=== PATIENT | male | born 1980 | race Caucasian/White ===

== ENCOUNTER → 2016-10-11 | Outpatient (CLI) | payer BC ==
[2016-06-11 16:43] VITALS: BP 115/77
[~2016-10-11] MED LIST: ALPR1TAB2 PO; ALPR2TAB2 PO; ALPR2TAB5 PO; ASPI325T11 PO; BUPR150T15 PO; BUPR150T8 PO; CEPH500C PO; CHLO500T14 PO; CLON1TAB PO; CLON2TAB PO; CLON2TAB2 PO; CYCL10TA2 PO; DEXT10CA10 PO; DIAZ5TAB4 PO; DOXY100T PO; HYDR-2672 PO; HYDR-2680 PO; HYDR2TAB PO; HYDR2TAB13 PO; HYDR30CR30 RC; LEVO500T38 PO; METO25TA4 PO; OXYC-250 PO; OXYC-323 PO; PANT40TA5 PO; PRED20TA PO; PREG50CA PO; QUET400T4 PO; TIZA4TAB8 PO
--- NOTE | 2016-10-11 16:41 | RAD ---
CT scan of the abdomen and pelvis without contrast 10/11/2016 Clinical history: Bilateral flank pain for 2 years. Technique: Unenhanced, contiguous, 2 mm axial sections were obtained through the abdomen and pelvis. One or more of the following individualized dose reduction techniques were utilized for this study: 1. Automated exposure control. 2. Adjustment of the mA and/or kV according to patient size. 3. Use of iterative reconstruction technique. Findings: Comparison study is dated 03/21/2016. Images through the lung bases demonstrate minimal dependent subsegmental atelectasis bilaterally. The liver, spleen, pancreas, and adrenal glands are within normal limits. Several nonobstructing calculi are seen scattered throughout both kidneys. These measure 1 to 3 mm in size. No ureteral calculus is seen. There is no evidence of obstruction of either collecting system. The abdominal aorta tapers normally. Surgical clips are seen within the gallbladder fossa consistent with a cholecystectomy. No free fluid or free air is seen within the abdomen. There is no evidence of bowel obstruction. The patient is status post appendectomy. Images through the pelvis demonstrate the urinary bladder distended with urine. Calcifications are seen within the pelvis consistent with phleboliths. No distal ureteral calculus is seen. No free fluid is noted. Scattered diverticula are seen involving the sigmoid colon. No inflammatory changes are seen in the adjacent fat. The patient is status post laminectomy and fusion involving the mid and lower lumbar spine using pedicle screws, stabilizing rods and bone graft material. Cagelike device are seen at L4-5. Relatively mild degenerative changes are seen involving the lower thoracic and throughout the lumbar disc spaces. Impression: Bilateral nonobstructing renal calculi. No acute abnormality is seen.
== END | disposition home or self-care (01) ==
LOC: CT 13:30
PROVIDERS: ATTEND Urology
DX: N20.0 Calculus of kidney (principal)
CPT/HCPCS: 74176

== ENCOUNTER 2016-11-03 14:58 | Emergency (ER) | payer BC ==
[~2016-11-03] VITALS: Ht 177.8 cm; Wt 106.6 kg
[2016-11-03] MEDS ORDERED: IV NORMAL SALINE 1000ML BAG 1,000 ML IV SCH (15:10)
[2016-11-03] MEDS ORDERED: 0.9 % SODIUM CHLORIDE 10 ML DISP.SYRIN. IV PRN (15:15)
[2016-11-03] MEDS ORDERED: FAMOTIDINE 20 MG/2 ML VIAL IVP ONE (15:15)
[2016-11-03] MEDS ORDERED: ONDANSETRON PF 4 MG/2 ML VIAL. IV ONE (15:15)
[2016-11-03] MEDS ORDERED: KETOROLAC TROMETHAMINE 30 MG/ML INJ. IV ONE (15:15)
[2016-11-03 15:21] LABS: BILIRUBIN,URINE NEGATIVE (NEG); GLUCOSE,URINE NEGATIVE (NEG); NITRITE,URINE NEGATIVE (NEG); PH,URINE 6.5; PROTEIN,URINE NEGATIVE (NEG-TRACE); UROBILINOGEN,URINE 0.2 mg/dL (0.2 mg/dL)
[2016-11-03 15:28] LABS: BARBITURATES NEG (NEG); BENZODIAZEPINES NEG (NEG); CANNABINOIDS NEG (NEG); COCAINE NEG (NEG); METHADONE NEG (NEG); OPIATES POS (NEG); PHENCYCLIDINE NEG (NEG)
--- NOTE | 2016-11-03 15:28 | PHYS DOC ---
Past Medical History Past Medical History: Unknown Additional Past Medical Histor: Sleep apnea, Chronic back pain Past Medical History Although patient denies opiate addiction he's been seen here and hospitalized for many opiate overdoses. Past Surgical History: Appendectomy, Cholecystectomy, Other Additional Past Surgical Histo: Back Sx, Bx ankles, Lap band (reversed) Past Surgical History Otoscopic procedure right shoulder, bilateral knees Alcohol Use: None Drug Use: None Adult General Chief Complaint Chief Complaint: abnormal pain, nausea vomiting constipation HPI HPI A shows a pleasant 36-year-old obese male with a history of lap band surgery and reversal present with a two-day history of nausea and vomiting greater than 15 episodes daily for last 2 days described as nonbilious nonbloody. Patient has had constipation with last probably 2 days ago. Patient has been seen in our emergency department and her Hospital for multiple drug overdoses on opiates and benzos. He adamantly denies usage of those medications. He was actually reluctant to give us a urine drug screen. Patient says pain is getting worse and his was worried about a small bowel obstruction. He's had no sick contactsat the market product use no travel outside the country suction of raw foods and does not work with poultry or reptiles patient denies fevers, blood in the stool or change in eating habits. Review of Systems Review of Systems Constitutional: Denies fever or chills [] Eyes: Denies change in visual acuity, redness, or eye pain [] HENT: Denies nasal congestion or sore throat [] Respiratory: Denies cough or shortness of breath [] Cardiovascular: No additional information not addressed in HPI [] GI: Abdominal pain nausea and nonbilious nonbloody vomiting constipation : Denies dysuria or hematuria [] Musculoskeletal: Denies back pain or joint pain [] Integument: Denies rash or skin lesions [] Neurologic: Denies headache, focal weakness or sensory changes [] Endocrine: Denies polyuria or polydipsia [] Family History Family History Noncontributory Current Medications Current Medications Current Medications Medications (Trade) Dose Ordered Sig/Malcolm Start Time Stop Time Status Last Admin Dose Admin Diphenhydramine HCl (Benadryl) 50 mg 1X ONCE 11/03/16 16:00 11/03/16 16:05 DC 11/03/16 15:57 50 MG Famotidine (Pepcid) 20 mg 1X ONCE 11/03/16 15:15 11/03/16 16:05 DC 11/03/16 15:39 20 MG Info (Do NOT chart on this entry -- for MONITORING) 1 each PRN DAILY PRN 11/03/16 15:45 11/05/16 15:44 Iohexol (Omnipaque 300 Mg/ml) 75 ml 1X ONCE 11/03/16 15:45 11/03/16 16:05 DC 11/03/16 16:30 75 ML Ketorolac Tromethamine (Toradol) 30 mg 1X ONCE 11/03/16 15:15 11/03/16 16:05 DC 11/03/16 15:38 30 MG Ondansetron HCl (Zofran) 4 mg 1X ONCE 11/03/16 15:15 11/03/16 16:05 DC 11/03/16 15:38 4 MG Sodium Chloride (Iv Sodium Chloride 0.9% 1000ml Bag) 1,000 ml @ 1,000 mls/hr Q1H 11/03/16 15:10 11/03/16 16:09 DC 11/03/16 15:39 1,000 MLS/HR Sodium Chloride (Normal Saline Flush) 10 ml QSHIFT PRN 11/03/16 15:15 Allergies Allergies Allergies Coded Allergies Type Severity Reaction Last Updated Verified Penicillins Allergy Intermediate 06/11/16 Yes Sulfa (Sulfonamide Antibiotics) Allergy Intermediate 06/11/16 No Physical Exam Physical Exam Constitutional: Well developed, obese nontoxic in appearance but obviously uncomfortable nondiaphoretic HENT: Normocephalic, atraumatic, bilateral external ears normal, oropharynx moist, no oral exudates, nose normal. [] Eyes: PERRLA, EOMI, conjunctiva normal, no discharge. [] Neck: Normal range of motion, no tenderness, supple, no stridor. [] Cardiovascular:Heart rate regular rhythm, no murmur [] Lungs & Thorax: Bilateral breath sounds clear to auscultation wheezes rales or crackles or rhonchi Abdomen: Really nontender hyperactive bowel sounds no organomegaly rebound or guarding. [] Skin: Warm, dry, no erythema, no rash. [] Back: No tenderness, no CVA tenderness. [] Extremities: No tenderness, no cyanosis, no clubbing, ROM intact, no edema. [] Neurologic: Alert and oriented X 3, normal motor function, normal sensory function, no focal deficits noted. [] Psychologic: Patient seems very anxious and somewhat reluctant to talk about prior drug abuse history. [] Current Patient Data Vital Signs Vital Signs Date Time Temp Pulse Resp B/P Pulse Ox O2 Delivery O2 Flow Rate FiO2 11/03/16 16:51 72 18 140/73 96 Room Air 11/03/16 15:09 98 98.0 Lab Values Laboratory Tests Test 11/03/16 15:05 11/03/16 15:40 Urine Collection Type Unknown Urine Color Yellow Urine Clarity Clear Urine pH 6.5 Urine Specific [place] >=1.030 Urine Protein Negativemg/dL (NEG-TRACE) Urine Glucose (UA) Negativemg/dL (NEG) Urine Ketones (Stick) Negativemg/dL (NEG) Urine Blood Negative (NEG) Urine Nitrite Negative (NEG) Urine Bilirubin Negative (NEG) Urine Urobilinogen Dipstick 0.2mg/dL (0.2 mg/dL) Urine Leukocyte Esterase Negative (NEG) Urine RBC Occ/HPF (0-2) Urine WBC 0/HPF (0-4) Urine Bacteria 0/HPF (0-FEW) Urine Mucus Slight/LPF Urine Opiates Screen Pos (NEG) Urine Methadone Screen Neg (NEG) Urine Barbiturates Neg (NEG) Urine Phencyclidine Screen Neg (NEG) Urine Amphetamine/Methamphetamine Neg (NEG) Urine Benzodiazepines Screen Neg (NEG) Urine Cocaine Screen Neg (NEG) Urine Cannabinoids Screen Neg (NEG) Urine Ethyl Alcohol Neg (NEG) White Blood Count 13.0x10^3/uL (4.0-11.0) H Red Blood Count 4.05x10^6/uL (4.30-5.70) L Hemoglobin 11.0g/dL (13.0-17.5) L Hematocrit 34.5% (39.0-53.0) L Mean Corpuscular Volume 85fL (79-100) Mean Corpuscular Hemoglobin 27pg (25-35) Mean Corpuscular Hemoglobin Concent 32g/dL (31-37) Red Cell Distribution Width 15.8% (11.5-14.5) H Platelet Count 337x10^3/uL (140-400) Neutrophils (%) (Auto) 77% (31-73) H Lymphocytes (%) (Auto) 17% (24-48) L Monocytes (%) (Auto) 4% (0-9) Eosinophils (%) (Auto) 2% (0-3) Basophils (%) (Auto) 1% (0-3) Neutrophils # (Auto) 10.0x10^3uL (1.8-7.7) H Lymphocytes # (Auto) 2.1x10^3/uL (1.0-4.8) Monocytes # (Auto) 0.5x10^3/uL (0.0-1.1) Eosinophils # (Auto) 0.3x10^3/uL (0.0-0.7) Basophils # (Auto) 0.1x10^3/uL (0.0-0.2) Sodium Level 135mmol/L (136-145) L Potassium Level 3.8mmol/L (3.5-5.1) Chloride Level 98mmol/L (98-107) Carbon Dioxide Level 27mmol/L (21-32) Anion Gap 10 (6-14) Blood Urea Nitrogen 19mg/dL (8-26) Creatinine 0.9mg/dL (0.7-1.3) Estimated GFR (Cockcroft-Gault) 96.0 BUN/Creatinine Ratio 21 (6-20) H Glucose Level 117mg/dL (70-99) H Calcium Level 8.5mg/dL (8.5-10.1) Total Bilirubin 0.3mg/dL (0.2-1.0) Aspartate Amino Transferase (AST) 27U/L (15-37) Alanine Aminotransferase (ALT) 26U/L (16-63) Alkaline Phosphatase 84U/L (46-116) Total Protein 7.7g/dL (6.4-8.2) Albumin 3.8g/dL (3.4-5.0) Albumin/Globulin Ratio 1.0 (1.0-1.7) Lipase 163U/L (73-393) Laboratory Tests 11/03/16 15:40 Laboratory Tests 11/03/16 15:40 EKG EKG [] Radiology/Procedures Radiology/Procedures [] Course & Med Decision Making Course & Med Decision Making Pertinent Labs and Imaging studies reviewed. (See chart for details) [A shows a pretty extensive history of opiate abuse and overdose on arrival patient was confronted with history documented in his prior record he is adamantly denial of these findings. Patient is complaining of abdominal pain with a prior history of prior lap band surgery and he is concerned for possible bowel injection. Given he's got flatus that he can tell me about as well as nausea vomiting and hyperactive bowel sounds I will complete a CAT scan with IV contrast is sure no obstruction is in place.] Patient's urine drug screen was positive for opiates although patient denied actually taking any opiates. He's been given Toradol fluids and Zofran and Benadryl here in the emergency Department spelled quietly resting with no vomiting or active diarrhea here in the emergency department. Pending CT scan at this time Signed PATIENT: PRO PARISI ACCOUNT: [id number] : 1980 LOCATION: ER AGE: 36 SEX: M EXAM STATUS: REG ER ORD. PHYSICIAN: SIMONE CABEZAS MD REASON: diffuse abdominal pain PROCEDURE: CT ABD PELV W/ IV CONTRST ONLY CT of the abdomen and pelvis with contrast, 11/03/2016: History: Abdominal pain, nausea and vomiting Multidetector CT imaging was performed following an IV bolus injection of iodinated contrast material. No oral contrast material was administered for this study. Comparison is made to a study from 10/11/2016. The gallbladder is surgically absent. No hepatic abnormality is seen. The pancreas shows no abnormality. The spleen is of normal size. Single tiny radiopacities are noted in both kidneys compatible with intrarenal calculi. The renal collecting systems and ureters are not dilated. This study was not optimized for evaluation of ureteral calculi, however, no ureteral calculus is seen. The urinary bladder is unremarkable. The abdominal aorta is unremarkable. There are fixation devices in the lumbar spine with associated artifacts degrading image quality in portions of the retroperitoneum. No abdominal or pelvic adenopathy is seen. The stomach is mildly distended with fluid and retained food debris. There is only slight prominence of a small bowel loop in the left upper quadrant which measures just over 3 cm in greatest dimension. No focal obstructing process is seen. The distal small bowel loops are unremarkable. There is gas and stool scattered throughout the colon in a nonspecific pattern. There appears to be a radiopaque suture along the base of the cecum, presumably from a previous appendectomy. No free fluid or free air is evident in the abdomen or pelvis. IMPRESSION: 1. Mild distention of the stomach with retained food and fluid. 2. Slight prominence of a single fluid-filled small bowel loop in the left upper quadrant of doubtful significance. 3. Tiny bilateral nonobstructing intrarenal calculi. PQRS Compliance Statement: One or more of the following individualized dose reduction techniques were utilized for this examination: 1. Automated exposure control 2. Adjustment of the mA and/or kV according to patient size 3. Use of iterative reconstruction technique DICTATED and SIGNED BY: JERRY SILVA MD DATE: 11/03/16 1640 CC: SIMONE CABEZAS MD; NO PCP ~ Ancillary results reviewed and discussed with patient patient's abdomen is soft NABS patient has had again no episodes of nausea and vomiting despite claims someone to 15 episodes of vomiting per day or last 2 days. Patient's CMP BUN/ creatinine do not reflect significant dehydration or loss of potassium from vomiting. Patient's final impression and diagnosis will be abdominal pain, nausea and vomiting reported and opiate addiction will be referred to his primary care physician to help with his opiate addiction problems provided Zofran and Lomotil and Bentyl precautions given. Dragon Disclaimer Dragon Disclaimer This electronic medical record was generated, in whole or in part, using a voice recognition dictation system. Departure Departure Impression: Primary Impression: Vomiting Additional Impressions: Abdominal pain Opiate use Disposition: 01 HOME, SELF-CARE Condition: IMPROVED Referrals: WANG GALINDO PA-C (PCP) Patient Instructions: Abdominal Pain (Nonspecific), Chronic Pain, Chronic Pain Management, Nausea and Vomiting Additional Instructions: It is apparent that you have an issue with opiate use and possible abuse I would suggest that he follow up with her primary care doctor referral to a psychiatrist and a Suboxone addiction clinic to help with your opiate challenges. At this point her abdomen is soft there is no evidence of appendicitis no evidence of small bowel obstruction your kidney function is normal the CMP is normal. Please follow up with her primary care doctor for any questions or concerns he may return here for any increasing or change symptoms. Scripts Diphenoxylate Hcl/Atropine (Lomotil Tablet)1 Each Tablet1 Tab PO QID #20 TAB Prov:SIMONE CABEZAS MD 11/03/16 Dicyclomine Hcl (Bentyl)10 Mg Capsule1 Cap PO TID #14 CAP Ref 1 Prov:SIMONE CABEZAS MD 11/03/16 Ondansetron (Zofran Odt)4 Mg Tab.rapdis1 Tab SL Q8HRS #15 TAB Prov:SIMONE CABEZAS MD 11/03/16 Problem Qualifiers SIMONE CABEZAS MD November 03, 2016 15:28
[2016-11-03 15:29] LABS: BACTERIA,URINE 0 /HPF (0-FEW); RBC,URINE OCC /HPF (0-2); WBC,URINE 0 /HPF (0-4)
[2016-11-03] MEDS ORDERED: IOHEXOL 300 MG/ML 75 ML VIAL IV ONE (15:45)
[2016-11-03] MEDS ORDERED: CONTRAST GIVEN MC PRN (15:45)
[2016-11-03 15:51] LABS: BASO # 0.1 x10^3/uL (0.0-0.2); BASO % 1 % (0-3); EOS % 2 % (0-3); HEMATOCRIT 34.5 % (39.0-53.0); LYMPH # 2.1 x10^3/uL (1.0-4.8); LYMPH % 17 % (24-48); MEAN CORPUSCULAR HEMOGLOBIN 27 pg (25-35); MEAN CORPUSCULAR HGB CONC 32 g/dL (31-37); MEAN CORPUSCULAR VOLUME 85 fL (79-100); MONO % 4 % (0-9); NEUT % 77 % (31-73); PLATELET COUNT 337 x10^3/uL (140-400); RED BLOOD COUNT 4.05 x10^6/uL (4.30-5.70); RED CELL DISTRIBUTION WIDTH 15.8 % (11.5-14.5)
[2016-11-03] MEDS ORDERED: diphenhydrAMINE 50 MG/ML VIAL IVP ONE (16:00)
[2016-11-03 16:07] LABS: CALCIUM 8.5 mg/dL (8.5-10.1); CREATININE 0.9 mg/dL (0.7-1.3); POTASSIUM 3.8 mmol/L (3.5-5.1)
[2016-11-03 16:12] LABS: ALBUMIN 3.8 g/dL (3.4-5.0); TOTAL BILIRUBIN 0.3 mg/dL (0.2-1.0); TOTAL PROTEIN 7.7 g/dL (6.4-8.2)
--- NOTE | 2016-11-03 16:50 | ACF ---
Admission Forms Criteria ABDOMINAL PAIN Clinical Indications for Admission to Inpatient Care (Place 'X' for any and all applicable criteria): Admission is indicated for ANY ONE of the following(1)(2)(3)(4)(5): [X]I. Inpatient admission required rather than observation care (Also use Abdominal Pain: Observation Care, as appropriate) because of ANY ONE of the following: [ ]a) Severe pain requiring acute inpatient management [X]b) Identification of etiology/finding that requires inpatient care (eg, aortic dissection, free air) [ ]c) Absent bowel sounds with complete ileus(6) [ ]d) Suspected toxic megacolon [ ]e) Severe electrolyte abnormalities requiring inpatient care [ ]f) High fever or infection requiring inpatient admission as indicated by ANY ONE of following(7)(8): [ ] i) Appropriate outpatient or observational care antimicrobial treatment unavailable, not effective, or not feasible [ ] ii) Documented bacteremia [ ] iii) Temperature > 104.9 degrees F (oral) [ ] iv) T >103.1 F (oral) or < 96.8 F(rectal) that does not respond to all emergency treatment measures [ ]g) Signs of intestinal obstruction [B] [ ]h) Hemodynamic instability [ ]i) IV fluid to replace significant ongoing losses (greater than 3 L/m2 per day) (12)(13) [ ]j) Percutaneous or open drainage (eg, abscess, biliary tract ) procedures [ ]k) Parenteral nutrition regimen that must be implemented on inpatient basis [ ]l) Other condition,treatment or monitoring requiring inpatient admission. [ ]II. Peritoneal signs present [ ]III. Surgery needed that cannot be performed on an ambulatory basis. [ ]IV. Evaluation requires patient to not eat or drink for extended period ( eg, more than 24 hours). [ ]V. Contraindications and/or Inappropriate clinical situations for Observational Care in patients with abdominal pain, when ANY ONE of the following is required: [ ]a) Thorough evaluation is required to prevent catastrophic events due to delays in diagnosing (e.g.Mesenteric ischemia) 1,3 [ ]b) Patient with severe pathology or with chronic symptoms unlikely to improve in the ED stay (3) [ ]. General contraindications and/or Inappropriate clinical situations for Observational Care in patients with abdominal pain, when ANY ONE of the following is required: [ ]a) Prediction of prolongation of LOS based on ANY ONE of the following may be considered as a contraindication for observational care 2, 3, 4, 5, 6, 7, 8, 9, 10, 11 [ ]i) Age > 65 yrs. [ ]ii) Patient arriving by ambulance [ ]iii) Patient with high acuity [ ]iv) Patient requiring vital sign monitoring [ ]v) Patient on IV medication [ ]b) Systolic blood pressures 180mmHg 3,12 [ ]c) Patient with altered mental status including delirium and other alteration of consciousness, (3) [ ]d) Patient whose discharge disposition will be to a snf home or rehabilitation home should not be managed in Emergency Department Observation Unit. CMS rule requires 3 days hospital stay before such placement.3,13 [ ]e) Patient with failure to thrive due to broad array of etiologies 3,16,17 [ ]f) Inability to ambulate 3,14 Extended stay beyond goal length of stay may be needed for(2)(3): [ ]a) Persistent abdominal pain with suspected intra-abdominal process [ ]b) Diagnosed condition requiring continued stay (e.g., pancreatitis, complicated diverticulitis) [ ]c) Surgery (e.g., colectomy) The original [facility] content created by [employer] has been revised. The portions of the content which have been revised are identified through the use of italic text or in bold, and [facility] has neither reviewed nor approved the modified material.All other unmodified content is copyright [facility]. Please see references footnoted in the original [facility] edition 2016 J LUIS SOLANO November 03, 2016 16:50
[2016-11-03 16:51] VITALS: BP 140/73
--- NOTE | 2016-11-03 16:53 | RAD ---
CT of the abdomen and pelvis with contrast, 11/03/2016: History: Abdominal pain, nausea and vomiting Multidetector CT imaging was performed following an IV bolus injection of iodinated contrast material. No oral contrast material was administered for this study. Comparison is made to a study from 10/11/2016. The gallbladder is surgically absent. No hepatic abnormality is seen. The pancreas shows no abnormality. The spleen is of normal size. Single tiny radiopacities are noted in both kidneys compatible with intrarenal calculi. The renal collecting systems and ureters are not dilated. This study was not optimized for evaluation of ureteral calculi, however, no ureteral calculus is seen. The urinary bladder is unremarkable. The abdominal aorta is unremarkable. There are fixation devices in the lumbar spine with associated artifacts degrading image quality in portions of the retroperitoneum. No abdominal or pelvic adenopathy is seen. The stomach is mildly distended with fluid and retained food debris. There is only slight prominence of a small bowel loop in the left upper quadrant which measures just over 3 cm in greatest dimension. No focal obstructing process is seen. The distal small bowel loops are unremarkable. There is gas and stool scattered throughout the colon in a nonspecific pattern. There appears to be a radiopaque suture along the base of the cecum, presumably from a previous appendectomy. No free fluid or free air is evident in the abdomen or pelvis. IMPRESSION: 1. Mild distention of the stomach with retained food and fluid. 2. Slight prominence of a single fluid-filled small bowel loop in the left upper quadrant of doubtful significance. 3. Tiny bilateral nonobstructing intrarenal calculi. PQRS Compliance Statement: One or more of the following individualized dose reduction techniques were utilized for this examination: 1. Automated exposure control 2. Adjustment of the mA and/or kV according to patient size 3. Use of iterative reconstruction technique
[2016-11-03] MEDS ORDERED: DICY10CA53 PO (17:04)
[2016-11-03] MEDS ORDERED: ONDA4TAB10 SL (17:04)
[2016-11-03] MEDS ORDERED: DIPH1TAB PO (17:04)
== END 2016-11-03 17:15 | disposition home or self-care (01) ==
LOC: ER 14:58
DX: R11.2 Nausea with vomiting, unspecified (principal); R10.9 Unspecified abdominal pain; F11.10 Opioid abuse, uncomplicated; G89.29 Other chronic pain; G47.30 Sleep apnea, unspecified; Z90.49 Acquired absence of other specified parts of digestive tract; Z88.0 Allergy status to penicillin; Z88.2 Allergy status to sulfonamides
CPT/HCPCS: 36415; 74177; 80053; 80305; 80320; 81001; 83690; 85027; 96361; 96374; 96375; 99285; J1200; J1885; J2405; J7030; Q9967; S0028; G0481

== ENCOUNTER → 2018-06-13 | Outpatient (CLI) | payer OTHER ==
[2018-06-08 11:00] VITALS: BP 124/71
[~2018-06-13] MED LIST changes: +ASPI-630 PO; +CIPR250T30 PO; -CLON2TAB2 PO; +CLON2TAB9 PO; +DICY10CA53 PO; +DIPH1TAB PO; -HYDR-2672 PO; +HYDR-2769 PO; -HYDR2TAB13 PO; +HYDR2TAB31 PO; +HYDR4TAB45 PO; -LEVO500T38 PO; +LEVO500T59 PO; +METO50TA6 PO; +ONDA4TAB10 SL; -OXYC-250 PO; -OXYC-323 PO; +OXYC1TAB15 PO; +OXYC1TAB22 PO
== END | disposition home or self-care (01) ==
LOC: PMGWOUND 12:14
PROVIDERS: ATTEND Emergency Medicine Undersea and Hyperbaric Medicine
DX: L02.214 Cutaneous abscess of groin (principal); F41.9 Anxiety disorder, unspecified; G89.4 Chronic pain syndrome; F32.9 Major depressive disorder, single episode, unspecified; I25.2 Old myocardial infarction; G47.33 Obstructive sleep apnea (adult) (pediatric); Z90.49 Acquired absence of other specified parts of digestive tract; E66.01 Morbid (severe) obesity due to excess calories; Z68.41 Body mass index [BMI] 40.0-44.9, adult; Z86.73 Personal history of transient ischemic attack (TIA), and cerebral infarction without residual deficits
CPT/HCPCS: 99203

== ENCOUNTER → 2018-06-20 | Outpatient (CLI) | payer OTHER ==
[2018-06-08 11:00] VITALS: BP 124/71
== END | disposition home or self-care (01) ==
LOC: PMGWOUND 12:55
PROVIDERS: ATTEND Emergency Medicine Undersea and Hyperbaric Medicine
DX: L02.214 Cutaneous abscess of groin (principal); I10 Essential (primary) hypertension; F41.9 Anxiety disorder, unspecified; G89.4 Chronic pain syndrome; I25.2 Old myocardial infarction; G47.33 Obstructive sleep apnea (adult) (pediatric); F32.9 Major depressive disorder, single episode, unspecified; E66.01 Morbid (severe) obesity due to excess calories; Z68.41 Body mass index [BMI] 40.0-44.9, adult; Z90.49 Acquired absence of other specified parts of digestive tract; Z86.73 Personal history of transient ischemic attack (TIA), and cerebral infarction without residual deficits
CPT/HCPCS: 99214; G0463

== ENCOUNTER → 2018-06-29 | Outpatient (CLI) | payer OTHER ==
[2018-06-26 14:00] VITALS: BP 136/81
== END | disposition home or self-care (01) ==
LOC: PMGWOUND 10:32
PROVIDERS: ATTEND Emergency Medicine Undersea and Hyperbaric Medicine
DX: L02.214 Cutaneous abscess of groin (principal); I10 Essential (primary) hypertension; F41.9 Anxiety disorder, unspecified; I25.2 Old myocardial infarction; G89.29 Other chronic pain; G47.33 Obstructive sleep apnea (adult) (pediatric); F11.20 Opioid dependence, uncomplicated; F32.9 Major depressive disorder, single episode, unspecified; E66.01 Morbid (severe) obesity due to excess calories; Z68.41 Body mass index [BMI] 40.0-44.9, adult; Z90.49 Acquired absence of other specified parts of digestive tract; Z86.73 Personal history of transient ischemic attack (TIA), and cerebral infarction without residual deficits
CPT/HCPCS: 99214; G0463

== ENCOUNTER → 2018-07-06 | Outpatient (CLI) | payer OTHER ==
[2018-06-26 14:00] VITALS: BP 136/81
== END | disposition home or self-care (01) ==
LOC: PMGWOUND 14:29
PROVIDERS: ATTEND Emergency Medicine Undersea and Hyperbaric Medicine
DX: T81.31XD Disruption of external operation (surgical) wound, not elsewhere classified, subsequent encounter (principal); L02.214 Cutaneous abscess of groin; I25.2 Old myocardial infarction; F41.9 Anxiety disorder, unspecified; G47.30 Sleep apnea, unspecified; F32.9 Major depressive disorder, single episode, unspecified; G47.33 Obstructive sleep apnea (adult) (pediatric); F11.20 Opioid dependence, uncomplicated; G89.29 Other chronic pain; E66.01 Morbid (severe) obesity due to excess calories; Z68.41 Body mass index [BMI] 40.0-44.9, adult; Z86.73 Personal history of transient ischemic attack (TIA), and cerebral infarction without residual deficits; Z90.49 Acquired absence of other specified parts of digestive tract; Y83.8 Other surgical procedures as the cause of abnormal reaction of the patient, or of later complication, without mention of misadventure at the time of the procedure
CPT/HCPCS: 99215

== ENCOUNTER → 2018-07-13 | Outpatient (CLI) | payer OTHER ==
[2018-06-26 14:00] VITALS: BP 136/81
== END | disposition home or self-care (01) ==
LOC: PMGWOUND 13:00
PROVIDERS: ATTEND Emergency Medicine Undersea and Hyperbaric Medicine
DX: T81.31XD Disruption of external operation (surgical) wound, not elsewhere classified, subsequent encounter (principal); L02.214 Cutaneous abscess of groin; F41.9 Anxiety disorder, unspecified; G89.4 Chronic pain syndrome; I25.2 Old myocardial infarction; G47.30 Sleep apnea, unspecified; F11.20 Opioid dependence, uncomplicated; F32.9 Major depressive disorder, single episode, unspecified; E66.01 Morbid (severe) obesity due to excess calories; Z68.41 Body mass index [BMI] 40.0-44.9, adult; Z90.49 Acquired absence of other specified parts of digestive tract; Z86.73 Personal history of transient ischemic attack (TIA), and cerebral infarction without residual deficits; Y83.8 Other surgical procedures as the cause of abnormal reaction of the patient, or of later complication, without mention of misadventure at the time of the procedure
CPT/HCPCS: 99213

== ENCOUNTER → 2018-07-20 | Outpatient (CLI) | payer OTHER ==
[2018-06-26 14:00] VITALS: BP 136/81
[~2018-07-20] MED LIST changes: +LEVO750T31 PO
== END | disposition home or self-care (01) ==
LOC: PMGWOUND 12:41
PROVIDERS: ATTEND Emergency Medicine Undersea and Hyperbaric Medicine
DX: T81.31XD Disruption of external operation (surgical) wound, not elsewhere classified, subsequent encounter (principal); L02.214 Cutaneous abscess of groin; I25.2 Old myocardial infarction; G47.30 Sleep apnea, unspecified; F41.9 Anxiety disorder, unspecified; G89.4 Chronic pain syndrome; G47.33 Obstructive sleep apnea (adult) (pediatric); F32.9 Major depressive disorder, single episode, unspecified; F11.20 Opioid dependence, uncomplicated; E66.01 Morbid (severe) obesity due to excess calories; Z68.41 Body mass index [BMI] 40.0-44.9, adult; Z90.49 Acquired absence of other specified parts of digestive tract; Z86.73 Personal history of transient ischemic attack (TIA), and cerebral infarction without residual deficits; Y83.8 Other surgical procedures as the cause of abnormal reaction of the patient, or of later complication, without mention of misadventure at the time of the procedure
CPT/HCPCS: 99213

== ENCOUNTER 2018-07-21 13:02 | Inpatient (IN) | payer OTHER ==
[~2018-07-21] VITALS: Ht 177.8 cm; Wt 123.2 kg
[~2018-07-21 13:02] MED LIST changes: -LEVO750T31 PO; -PANT40TA5 PO; +PANT40TA77 PO
[2018-07-21] MEDS ORDERED: IPRATRPIUM/ALBUTEROL 0.5/2.5MG 3 ML NEBU. NEB ONE (13:30)
[2018-07-21 13:34] LABS: BASE EXCESS ABG 1 mmol/L (-3-3); HCO3 ABG 29 mmol/L (21-28); PO2 ABG 66 mmHg (85-108); SAT O2 ABG 91 % (92-99)
[2018-07-21 13:44] LABS: FIO2 ABG 60; PCO2 ABG 65 mmHg (35-46)
[2018-07-21 14:07] LABS: BASO # 0.1 x10^3/uL (0.0-0.2); BASO % 1 % (0-3); EOS % 0 % (0-3); HEMATOCRIT 41.8 % (39.0-53.0); HEMOGLOBIN 13.4 g/dL (13.0-17.5); LYMPH # 1.1 x10^3/uL (1.0-4.8); LYMPH % 9 % (24-48); MEAN CORPUSCULAR HEMOGLOBIN 27 pg (25-35); MEAN CORPUSCULAR HGB CONC 32 g/dL (31-37); MEAN CORPUSCULAR VOLUME 85 fL (79-100); MONO # 0.5 x10^3/uL (0.0-1.1); MONO % 4 % (0-9); NEUT # 10.7 x10^3uL (1.8-7.7); NEUT % 86 % (31-73); PLATELET COUNT 302 x10^3/uL (140-400); RED CELL DISTRIBUTION WIDTH 17.6 % (11.5-14.5); WHITE BLOOD COUNT 12.3 x10^3/uL (4.0-11.0)
[2018-07-21] MEDS ORDERED: IOHEXOL 350 MG/ML 100 ML VIAL. IV ONE (14:15)
[2018-07-21] MEDS ORDERED: ALBUTEROL SULFATE 2.5 MG/3 ML NEBU. CONT NEB ONE (14:15)
[2018-07-21 14:17] LABS: CALCIUM 8.5 mg/dL (8.5-10.1); CREATININE 0.9 mg/dL (0.7-1.3); POTASSIUM 4.4 mmol/L (3.5-5.1)
--- NOTE | 2018-07-21 14:29 | EKG ---
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
[2018-07-21] MEDS ORDERED: CONTRAST GIVEN. MC PRN (14:30)
[2018-07-21 14:33] LABS: % BASOS 1 % (0-3); % EOS 1 % (0-5); % LYMPHS 10 % (24-48); % MONOS 1 % (0-10); % SEGS 87 % (35-66); ANISOCYTOSIS SLIGHT; PLT ESTIMATE ADEQUATE (ADEQUATE)
[2018-07-21 14:34] LABS: STOMATOCYTES FEW
--- NOTE | 2018-07-21 14:52 | RAD ---
EXAM: CHEST 1 VIEW History: Shortness of breath COMPARISON: 06/24/2018 TECHNIQUE: Single portable radiograph of the chest FINDINGS: Mild cardiomegaly. Mild prominent appearing bilateral interstitial lung markings in the perihilar region. Mild bibasilar lung airspace opacities likely atelectasis or infiltrates. IMPRESSION: Mild prominent appearing bilateral digital lung markings likely mild congestive changes. Electronically signed by: Iggy Navarrete MD (07/21/2018 2:48 PM) [id number]
--- NOTE | 2018-07-21 16:17 | RAD ---
Examination: CT angiogram of the chest. HISTORY: History of shortness of breath COMPARISON: None available TECHNIQUE: Axial CT angiographic images of chest were performed with IV contrast. Coronal and sagittal reformats are performed Exposure: One or more of the following individualized dose reduction techniques were utilized for this examination: 1. Automated exposure control 2. Adjustment of the mA and/or kV according to patient size 3. Use of iterative reconstruction technique FINDINGS: The visualized thyroid gland grossly appears unremarkable. The central airways are patent. Mild cardiomegaly. The visualized aorta grossly appears unremarkable. Few prominent mediastinal lymph nodes identified with the largest measuring 2.2 cm in the subcarinal region. There is no evidence of filling defect identified in the main pulmonary arterial trunk and right and left main pulmonary arteries. The evaluation of the distal lobar, segmental branches of the pulmonary arteries is limited as it is not enough contrast within these pulmonary arterial branches. There is questionable filling defect identified in the distal segmental branch of the right lower lobe pulmonary artery, best visualized on series 3 image #80 could be artifactual or due to pulmonary embolus. Diffuse airspace opacities identified in the left upper lobe, left lower lobe, right lower lobe of the lung with scattered airspace opacities identified in the right upper lobe of the lung likely multifocal pneumonia or infiltrates or edema.. There is mild decreased attenuation noted in the liver likely hepatic steatosis. The visualized adrenals grossly appears unremarkable. Mild degenerative changes thoracic spine. IMPRESSION: 1. No evidence of central pulmonary embolism however examination is limited as it is not enough contrast within the distal pulmonary arterial branches. There is questionable filling defect identified in the distal segmental branch of the right lower lobe pulmonary artery, best visualized on series 3 image #80 could be artifactual or due to pulmonary embolus. Recommend follow-up ultrasound bilateral lower extremity venous duplex and VQ scan for further evaluation. 2. Diffuse airspace opacities identified in the left upper lobe, left lower lobe, right lower lobe of the lung with scattered airspace opacities identified in the right upper lobe of the lung likely multifocal pneumonia or infiltrates or edema. Follow-up to resolution. 3. Few prominent mediastinal lymph nodes probably reactive. Electronically signed by: Iggy Navarrete MD (07/21/2018 4:13 PM) [id number]
[2018-07-21] MEDS ORDERED: HYDROmorphone 4 MG TABLET PO ONE (16:30)
--- NOTE | 2018-07-21 16:30 | PHYS DOC ---
Past Medical History Past Medical History: Anxiety, Kidney Stone, Pneumonia, Other Additional Past Medical Histor: chronic back pain, degenerative disc disease, Past Surgical History: Appendectomy, Cholecystectomy, Tonsillectomy, Other Additional Past Surgical Histo: back surgery x 4 Alcohol Use: None Drug Use: None Adult General Chief Complaint Chief Complaint: SHORTNESS OF BREATH HPI HPI Patient is a 38 year old male who presents with dyspnea. Patient has been ill over the last couple of days. He has had a cough that has been productive of frothy, bloody sputum. He has had some chills and fever was documented yesterday. Today, he became too short of breath so he came to the emergency department. Patient does have a known history of hypoxia but this is normally only at nighttime and secondary to severe sleep apnea. He does use an oxygen concentrator at home, but again only at nighttime. He does not complain of chest pain. No recent travel. No ill family members. On arrival to the emergency department, the patient has a room air saturation of 55%. He has some central cyanosis but does not have severe respiratory distress. He placed on 10 L of oxygen per high flow nasal cannula but his oxygen saturation only improves to 88-89% on this regimen. He was subsequently placed on a nonrebreather which did improve his SaO2 >94%. Review of Systems Review of Systems Constitutional: + fever/chills Eyes: Denies change in visual acuity HENT: Denies nasal congestion or sore throat Respiratory: as documented above Cardiovascular: No additional information GI: Denies abdominal pain, nausea, vomiting : Denies dysuria or hematuria Musculoskeletal: chronic back pain Integument: Denies rash or skin lesions Neurologic: Denies headache, or focal neuro complaints Endocrine: Denies polyuria All other systems were reviewed and found to be within normal limits, except as documented in this note. Current Medications Current Medications Current Medications Medications (Trade) Dose Ordered Sig/Malcolm Start Time Stop Time Status Last Admin Dose Admin Acetaminophen (Tylenol) 650 mg PRN Q4HRS PRN 07/21/18 16:45 07/22/18 16:44 Albuterol Sulfate (Ventolin Neb Soln) 10 mg 1X ONCE 07/21/18 14:15 07/21/18 14:16 DC 07/21/18 14:38 10 MG Albuterol/ Ipratropium (Duoneb) 3 ml RTQID 07/21/18 20:00 07/22/18 19:59 Heparin Sodium (Porcine) (Heparin Sodium) 1,850 unit PRN Q6HRS PRN 07/21/18 16:45 Heparin Sodium/ Dextrose 500 ml @ 40 mls/hr CONT PRN 07/21/18 16:45 Hydromorphone HCl (Dilaudid) 4 mg 1X ONCE 07/21/18 16:30 07/21/18 16:31 DC 07/21/18 16:29 4 MG Info (Anti-Coagulation Monitoring By Pharmacy) 1 each PRN DAILY PRN 07/21/18 16:45 Info (CONTRAST GIVEN -- Rx MONITORING) 1 each PRN DAILY PRN 07/21/18 14:30 07/23/18 14:29 Iohexol (Omnipaque 350 Mg/ml) 100 ml 1X ONCE 07/21/18 14:15 07/21/18 14:16 DC 07/21/18 14:15 100 ML Levofloxacin/ Dextrose 150 ml @ 100 mls/hr 1X ONCE 07/21/18 15:30 07/21/18 16:59 07/21/18 16:08 100 MLS/HR Morphine Sulfate (Morphine Sulfate) 4 mg PRN Q2HR PRN 07/21/18 16:45 07/22/18 16:44 Ondansetron HCl (Zofran) 4 mg PRN Q8HRS PRN 07/21/18 16:45 07/22/18 16:44 Allergies Allergies Allergies Coded Allergies Type Severity Reaction Last Updated Verified Penicillins Allergy Intermediate Hives 06/26/18 Yes ketorolac Allergy Intermediate 06/26/18 Yes tramadol Allergy Intermediate 06/26/18 Yes Physical Exam Physical Exam Constitutional: Well developed, well nourished, no acute distress, ill- appearing with some portillo-oral cyanosis HENT: Normocephalic, atraumatic, bilateral external ears normal, oropharynx moist Eyes: PERRLA, EOMI, conjunctiva normal Neck: Normal range of motion, no tenderness Cardiovascular:Heart rate regular rhythm, no murmur Lungs & Thorax: congested and course lung sounds bilaterally Abdomen: Bowel sounds normal, soft Skin: Warm, dry, no erythema, no rash Extremities: No edema Neurologic: Alert and oriented X 3, normal motor function Psychologic: Affect normal Current Patient Data Vital Signs Vital Signs Date Time Temp Pulse Resp B/P (MAP) Pulse Ox O2 Delivery O2 Flow Rate FiO2 07/21/18 14:43 95 Nasal Cannula 10.0 07/21/18 13:10 97.5 106 20 110/69 (83) 97.5 Lab Values Laboratory Tests Test 07/21/18 13:30 07/21/18 13:54 O2 Saturation 91 % (92-99) L Arterial Blood pH 7.27 (7.35-7.45) L Arterial Blood pCO2 at Patient Temp 65 mmHg (35-46) *H Arterial Blood pO2 at Patient Temp 66 mmHg (85-108) L Arterial Blood HCO3 29 mmol/L (21-28) H Arterial Blood Base Excess 1 mmol/L (-3-3) FiO2 60 White Blood Count 12.3 x10^3/uL (4.0-11.0) H Red Blood Count 4.90 x10^6/uL (4.30-5.70) Hemoglobin 13.4 g/dL (13.0-17.5) Hematocrit 41.8 % (39.0-53.0) Mean Corpuscular Volume 85 fL (79-100) Mean Corpuscular Hemoglobin 27 pg (25-35) Mean Corpuscular Hemoglobin Concent 32 g/dL (31-37) Red Cell Distribution Width 17.6 % (11.5-14.5) H Platelet Count 302 x10^3/uL (140-400) Neutrophils (%) (Auto) 86 % (31-73) H Lymphocytes (%) (Auto) 9 % (24-48) L Monocytes (%) (Auto) 4 % (0-9) Eosinophils (%) (Auto) 0 % (0-3) Basophils (%) (Auto) 1 % (0-3) Neutrophils # (Auto) 10.7 x10^3uL (1.8-7.7) H Lymphocytes # (Auto) 1.1 x10^3/uL (1.0-4.8) Monocytes # (Auto) 0.5 x10^3/uL (0.0-1.1) Eosinophils # (Auto) 0.0 x10^3/uL (0.0-0.7) Basophils # (Auto) 0.1 x10^3/uL (0.0-0.2) Segmented Neutrophils % 87 % (35-66) H Lymphocytes % 10 % (24-48) L Monocytes % 1 % (0-10) Eosinophils % 1 % (0-5) Basophils % 1 % (0-3) Platelet Estimate Adequate (ADEQUATE) Large Platelets Occ Anisocytosis Slight Stomatocytes Few Sodium Level 140 mmol/L (136-145) Potassium Level 4.4 mmol/L (3.5-5.1) Chloride Level 102 mmol/L (98-107) Carbon Dioxide Level 31 mmol/L (21-32) Anion Gap 7 (6-14) Blood Urea Nitrogen 18 mg/dL (8-26) Creatinine 0.9 mg/dL (0.7-1.3) Estimated GFR (Cockcroft-Gault) 95.0 Glucose Level 110 mg/dL (70-99) H Lactic Acid Level 1.2 mmol/L (0.4-2.0) Calcium Level 8.5 mg/dL (8.5-10.1) Troponin I Quantitative < 0.017 ng/mL (0.000-0.055) ME-Ssx-C-Type Natriuretic Peptide 3706 pg/mL (0-124) H Procalcitonin 0.14 ng/mL (0.00-0.10) H Laboratory Tests 07/21/18 13:54 Laboratory Tests 07/21/18 13:54 EKG EKG No STEMI Noted to have S1Q3T3 pattern Radiology/Procedures Radiology/Procedures CXR: no acute findings CTA chest: FINDINGS: The visualized thyroid gland grossly appears unremarkable. The central airways are patent. Mild cardiomegaly. The visualized aorta grossly appears unremarkable. Few prominent mediastinal lymph nodes identified with the largest measuring 2.2 cm in the subcarinal region. There is no evidence of filling defect identified in the main pulmonary arterial trunk and right and left main pulmonary arteries. The evaluation of the distal lobar, segmental branches of the pulmonary arteries is limited as it is not enough contrast within these pulmonary arterial branches. There is questionable filling defect identified in the distal segmental branch of the right lower lobe pulmonary artery, best visualized on series 3 image #80 could be artifactual or due to pulmonary embolus. Diffuse airspace opacities identified in the left upper lobe, left lower lobe, right lower lobe of the lung with scattered airspace opacities identified in the right upper lobe of the lung likely multifocal pneumonia or infiltrates or edema.. There is mild decreased attenuation noted in the liver likely hepatic steatosis. The visualized adrenals grossly appears unremarkable. Mild degenerative changes thoracic spine. IMPRESSION: 1. No evidence of central pulmonary embolism however examination is limited as it is not enough contrast within the distal pulmonary arterial branches. There is questionable filling defect identified in the distal segmental branch of the right lower lobe pulmonary artery, best visualized on series 3 image #80 could be artifactual or due to pulmonary embolus. Recommend follow-up ultrasound bilateral lower extremity venous duplex and VQ scan for further evaluation. 2. Diffuse airspace opacities identified in the left upper lobe, left lower lobe, right lower lobe of the lung with scattered airspace opacities identified in the right upper lobe of the lung likely multifocal pneumonia or infiltrates or edema. Follow-up to resolution. 3. Few prominent mediastinal lymph nodes probably reactive. Course & Med Decision Making Course & Med Decision Making Pertinent Labs and Imaging studies reviewed. (See chart for details) Patient was evaluated immediately on arrival to his room. He did not have acute respiratory distress but did have found hypoxia. He received a DuoNeb albuterol and Atrovent treatment which improved his oxygen requirements. During the ED course, he would receive an additional DuoNeb treatment. By the end of his ED course, the patient only required 4 L per nasal cannula to maintain a sat above 90% which was a great improvement. His initial blood gas was revealing for respiratory acidosis with a CO2 of 65. The patient's lab panel was revealing for elevated BNP of 3000. His troponin was not elevated. His pro calcitonin was elevated raising suspicion for infectious process. His initial chest x-ray did not reveal focal pneumonia. CT angiography was completed given the patient's profound hypoxia and dyspnea. This was revealing for multifocal pneumonia as well as some suspicion for smaller pulmonary embolus. In the ER, the patient had blood cultures collected. He was started on levofloxacin. His lactate was not elevated. He was started on heparin. I spoke to Dr. Carrion who will primarily admit the patient. Pulmonary consult is placed. At the time of admission, the patient was clinically much improved. The patient has been intubated in the past due to chronic hypoxia which occurs primarily at night time. Given this, the patient is admitted to the intensive care unit for close observation His EKG did not reveal STEMI but he did have an S1Q3T3 pattern. Dragon Disclaimer Dragon Disclaimer This electronic medical record was generated, in whole or in part, using a voice recognition dictation system. Departure Departure Impression: Primary Impression: Respiratory acidosis Additional Impression: Hypoxia Condition: STABLE Problem Qualifiers GURJIT SANDY DO Jul 21, 2018 16:29
[2018-07-21] MEDS ORDERED: ANTI-COAG MONITOR BY PHARMACY. MC PRN (16:45)
[2018-07-21] MEDS ORDERED: HEPARIN 25,000UTS/500ML PREMIX 500 ML IV PRN (16:45)
[2018-07-21] MEDS ORDERED: HEPARIN for IV BOLUS 10,000 UNIT/10 ML VIAL. IV PRN ×2 (16:45)
[2018-07-21] MEDS ORDERED: ACETAMINOPHEN 325 MG TABLET. PO PRN ×2 (16:45→17:45)
[2018-07-21] MEDS ORDERED: ONDANSETRON PF 4 MG/2 ML VIAL. IV PRN ×2 (16:45→17:45)
[2018-07-21 17:03] LABS: INFLUENZA A PATIENT NEGATIVE (NEGATIVE); INFLUENZA B PATIENT NEGATIVE (NEGATIVE)
--- NOTE | 2018-07-21 17:40 | PDOC1 ---
History and Physical Date of Admission Date of Admission 07/21/18 Identification/Chief Complaint Chief Complaint sob Source Source: Chart review, Patient History of Present Illness History of Present Illness Patient is a 38 year old male who presents with dyspnea today. Pt was admitted here in the past few months, was doing ok. yesterday. He woke up today with severe cough and yellow sputum, sob. he said he went to wound clinic yesterday with fever T 101. Patient does have a known history of hypoxia but this is normally only at nighttime and secondary to severe sleep apnea, uses NC as needed. He does not complain of chest pain. No recent travel. No ill family members. as per ERP, On arrival to the emergency department, the patient has a room air saturation of 55%. He has some central cyanosis but does not have severe respiratory distress. He placed on 10 L of oxygen per high flow nasal cannula but his oxygen saturation only improves to 88-89% on this regimen. He was subsequently placed on a nonrebreather which did improve his SaO2 >94%. CTA showed bl PNA and possible small PE. Past Medical History Cardiovascular: HTN Pulmonary: Other CENTRAL NERVOUS SYSTEM: TIA Psych: Anxiety, Addictions, Other Past Surgical History Past Surgical History: Appendectomy, Cholecystectomy, Other Family History Family History: Heart Disease Social History Smoke: No ALCOHOL: none Drugs: None, Other Current Problem List Problem List Problems Medical Problems: (1) Hypoxia Status: Acute (2) Multifocal pneumonia Status: Acute (3) Pulmonary embolism Status: Acute (4) Respiratory acidosis Status: Acute Current Medications Current Medications Current Medications Medications (Trade) Dose Ordered Sig/Malcolm Start Time Stop Time Status Last Admin Dose Admin Acetaminophen (Tylenol) 650 mg PRN Q4HRS PRN 07/21/18 16:45 07/22/18 16:44 Albuterol Sulfate (Ventolin Neb Soln) 10 mg 1X ONCE 07/21/18 14:15 07/21/18 14:16 DC 07/21/18 14:38 10 MG Albuterol/ Ipratropium (Duoneb) 3 ml RTQID 07/21/18 20:00 07/22/18 19:59 Heparin Sodium (Porcine) (Heparin Sodium) 1,850 unit PRN Q6HRS PRN 07/21/18 16:45 Heparin Sodium/ Dextrose 500 ml @ 40 mls/hr CONT PRN 07/21/18 16:45 Hydromorphone HCl (Dilaudid) 4 mg 1X ONCE 07/21/18 16:30 07/21/18 16:31 DC 07/21/18 16:29 4 MG Info (Anti-Coagulation Monitoring By Pharmacy) 1 each PRN DAILY PRN 07/21/18 16:45 Info (CONTRAST GIVEN -- Rx MONITORING) 1 each PRN DAILY PRN 07/21/18 14:30 07/23/18 14:29 Iohexol (Omnipaque 350 Mg/ml) 100 ml 1X ONCE 07/21/18 14:15 07/21/18 14:16 DC 07/21/18 14:15 100 ML Levofloxacin/ Dextrose 150 ml @ 100 mls/hr 1X ONCE 07/21/18 15:30 07/21/18 16:59 DC 07/21/18 16:08 100 MLS/HR Morphine Sulfate (Morphine Sulfate) 4 mg PRN Q2HR PRN 07/21/18 16:45 07/22/18 16:44 Ondansetron HCl (Zofran) 4 mg PRN Q8HRS PRN 07/21/18 16:45 07/22/18 16:44 Allergies Allergies Allergies Coded Allergies Type Severity Reaction Last Updated Verified Penicillins Allergy Intermediate Hives 06/26/18 Yes ketorolac Allergy Intermediate 06/26/18 Yes tramadol Allergy Intermediate 06/26/18 Yes ROS Review of System CONSTITUTIONAL: No fever or chills EYES: No recent changes SKIN: No rash or itching CARDIOVASCULAR: No chest pain, syncope, palpitations, or edema RESPIRATORY: No SOB or cough GASTROINTESTINAL: No nausea, vomiting or abdominal pain NEUROLOGICAL: No headaches or weakness ENDOCRINE: No cold or heat intolerance GENITOURINARY: No urgency or frequency of urination MUSCULOSKELETAL: No back pain or joint pain LYMPHATICS: No enlarged lymph nodes PSYCHIATRIC: No anxiety or depression Physical Exam Physical Exam GEN.: No apparent distress. Alert and oriented. HEENT: Head is normocephalic, atraumatic NECK: Supple. LUNGS: Clear to auscultation. HEART: RRR, S1, S2 present. Peripheral pulses intact ABDOMEN: Soft, nontender. Positive bowel sounds. EXTREMITIES: Without any cyanosis. NEUROLOGIC: Normal speech, normal tone PSYCHIATRIC: Normal affect, normal mood. SKIN: right groin has a small opening with mild yellow discharge Vitals Vitals Vital Signs Date Time Temp Pulse Resp B/P (MAP) Pulse Ox O2 Delivery O2 Flow Rate FiO2 07/21/18 17:10 96 20 133/77 (95) 96 Nasal Cannula 4.0 07/21/18 13:10 97.5 97.5 Labs Labs Laboratory Tests Test 07/21/18 13:30 07/21/18 13:54 07/21/18 16:36 O2 Saturation 91 % (92-99) Arterial Blood pH 7.27 (7.35-7.45) Arterial Blood pCO2 at Patient Temp 65 mmHg (35-46) Arterial Blood pO2 at Patient Temp 66 mmHg (85-108) Arterial Blood HCO3 29 mmol/L (21-28) Arterial Blood Base Excess 1 mmol/L (-3-3) FiO2 60 White Blood Count 12.3 x10^3/uL (4.0-11.0) Red Blood Count 4.90 x10^6/uL (4.30-5.70) Hemoglobin 13.4 g/dL (13.0-17.5) Hematocrit 41.8 % (39.0-53.0) Mean Corpuscular Volume 85 fL (79-100) Mean Corpuscular Hemoglobin 27 pg (25-35) Mean Corpuscular Hemoglobin Concent 32 g/dL (31-37) Red Cell Distribution Width 17.6 % (11.5-14.5) Platelet Count 302 x10^3/uL (140-400) Neutrophils (%) (Auto) 86 % (31-73) Lymphocytes (%) (Auto) 9 % (24-48) Monocytes (%) (Auto) 4 % (0-9) Eosinophils (%) (Auto) 0 % (0-3) Basophils (%) (Auto) 1 % (0-3) Neutrophils # (Auto) 10.7 x10^3uL (1.8-7.7) Lymphocytes # (Auto) 1.1 x10^3/uL (1.0-4.8) Monocytes # (Auto) 0.5 x10^3/uL (0.0-1.1) Eosinophils # (Auto) 0.0 x10^3/uL (0.0-0.7) Basophils # (Auto) 0.1 x10^3/uL (0.0-0.2) Segmented Neutrophils % 87 % (35-66) Lymphocytes % 10 % (24-48) Monocytes % 1 % (0-10) Eosinophils % 1 % (0-5) Basophils % 1 % (0-3) Platelet Estimate Adequate (ADEQUATE) Large Platelets Occ Anisocytosis Slight Stomatocytes Few Sodium Level 140 mmol/L (136-145) Potassium Level 4.4 mmol/L (3.5-5.1) Chloride Level 102 mmol/L (98-107) Carbon Dioxide Level 31 mmol/L (21-32) Anion Gap 7 (6-14) Blood Urea Nitrogen 18 mg/dL (8-26) Creatinine 0.9 mg/dL (0.7-1.3) Estimated GFR (Cockcroft-Gault) 95.0 Glucose Level 110 mg/dL (70-99) Lactic Acid Level 1.2 mmol/L (0.4-2.0) Calcium Level 8.5 mg/dL (8.5-10.1) Troponin I Quantitative < 0.017 ng/mL (0.000-0.055) FC-Qvl-T-Type Natriuretic Peptide 3706 pg/mL (0-124) Procalcitonin 0.14 ng/mL (0.00-0.10) Influenza Type A Antigen Negative (NEGATIVE) Influenza Type B Antigen Negative (NEGATIVE) Laboratory Tests Test 07/21/18 13:30 07/21/18 13:54 07/21/18 16:36 O2 Saturation 91 % (92-99) Arterial Blood pH 7.27 (7.35-7.45) Arterial Blood pCO2 at Patient Temp 65 mmHg (35-46) Arterial Blood pO2 at Patient Temp 66 mmHg (85-108) Arterial Blood HCO3 29 mmol/L (21-28) Arterial Blood Base Excess 1 mmol/L (-3-3) FiO2 60 White Blood Count 12.3 x10^3/uL (4.0-11.0) Red Blood Count 4.90 x10^6/uL (4.30-5.70) Hemoglobin 13.4 g/dL (13.0-17.5) Hematocrit 41.8 % (39.0-53.0) Mean Corpuscular Volume 85 fL (79-100) Mean Corpuscular Hemoglobin 27 pg (25-35) Mean Corpuscular Hemoglobin Concent 32 g/dL (31-37) Red Cell Distribution Width 17.6 % (11.5-14.5) Platelet Count 302 x10^3/uL (140-400) Neutrophils (%) (Auto) 86 % (31-73) Lymphocytes (%) (Auto) 9 % (24-48) Monocytes (%) (Auto) 4 % (0-9) Eosinophils (%) (Auto) 0 % (0-3) Basophils (%) (Auto) 1 % (0-3) Neutrophils # (Auto) 10.7 x10^3uL (1.8-7.7) Lymphocytes # (Auto) 1.1 x10^3/uL (1.0-4.8) Monocytes # (Auto) 0.5 x10^3/uL (0.0-1.1) Eosinophils # (Auto) 0.0 x10^3/uL (0.0-0.7) Basophils # (Auto) 0.1 x10^3/uL (0.0-0.2) Segmented Neutrophils % 87 % (35-66) Lymphocytes % 10 % (24-48) Monocytes % 1 % (0-10) Eosinophils % 1 % (0-5) Basophils % 1 % (0-3) Platelet Estimate Adequate (ADEQUATE) Large Platelets Occ Anisocytosis Slight Stomatocytes Few Sodium Level 140 mmol/L (136-145) Potassium Level 4.4 mmol/L (3.5-5.1) Chloride Level 102 mmol/L (98-107) Carbon Dioxide Level 31 mmol/L (21-32) Anion Gap 7 (6-14) Blood Urea Nitrogen 18 mg/dL (8-26) Creatinine 0.9 mg/dL (0.7-1.3) Estimated GFR (Cockcroft-Gault) 95.0 Glucose Level 110 mg/dL (70-99) Lactic Acid Level 1.2 mmol/L (0.4-2.0) Calcium Level 8.5 mg/dL (8.5-10.1) Troponin I Quantitative < 0.017 ng/mL (0.000-0.055) BY-Mgy-B-Type Natriuretic Peptide 3706 pg/mL (0-124) Procalcitonin 0.14 ng/mL (0.00-0.10) Influenza Type A Antigen Negative (NEGATIVE) Influenza Type B Antigen Negative (NEGATIVE) VTE Prophylaxis Ordered VTE Prophylaxis Devices: No VTE Pharmacological Prophylaxi: Yes Assessment/Plan Assessment/Plan sob, acute resp failure, bl HAP possible small PE h/o toxic encephalopathy with drug over dose, on dilaudid and ativan h/o resp failure with meds overdose, with benzo, pain meds and depression meds chronic back pain with h/o sx ADHD H/O MN and cardiac arrest with resp failure and meds overdose h/o kidney stone mild dementia with memory loss rt groin cellulitis/abscess s/p i and d 06/07 with packing, still not healed opiods dependence plan: pulm consult heparin for now add levaquin for now duoneb, albuterol prn, cough meds need verify home meds NC for now wound care pt on high dose dilaudid and xanax at home, cont for now, close watch Mental and pulm status. DOMINGO HAMMONDS MD Jul 21, 2018 17:39
[2018-07-21] MEDS: HEPARIN 25,000UTS/500ML PREMIX 500 ML IV PRN (17:43)
[2018-07-21] MEDS ORDERED: ALBUTEROL SULFATE 2.5 MG/3 ML NEBU. NEB PRN (17:45)
[2018-07-21] MEDS ORDERED: DOCUSATE SODIUM 100 MG CAPSULE. PO PRN (17:45)
[2018-07-21] MEDS ORDERED: MORPHINE SULFATE 4 MG/ML VIAL. IV PRN (17:45)
[2018-07-21] MEDS ORDERED: hydrALAZINE 20 MG/ML VIAL. IVP PRN (17:45)
[2018-07-21] MEDS ORDERED: HYDROmorphone 4 MG TABLET PO PRN (18:00)
[2018-07-21 18:35] VITALS: BP 112/73
[2018-07-21 19:00] VITALS: BP 115/70
[2018-07-21] MEDS: IPRATRPIUM/ALBUTEROL 0.5/2.5MG 3 ML NEBU. NEB SCH (19:19)
[2018-07-21] MEDS ORDERED: IPRATRPIUM/ALBUTEROL 0.5/2.5MG 3 ML NEBU. NEB SCH (20:00)
[2018-07-21] MEDS: ALPRAZolam 1 MG TABLET PO SCH (20:41)
[2018-07-21] MEDS: HYDROmorphone 2 MG TABLET PO PRN (20:41)
[2018-07-21 21:00] VITALS: BP 135/73
--- NOTE | 2018-07-21 21:37 | RAD ---
Bilateral lower extremity venous doppler ultrasound Indication:POSSIBLE PE LT LEG PAIN . Technique: Color Doppler, grayscale, and spectral waveform analysis is used to evaluate the right and left lower extremity deep venous system, including the common femoral vein, superficial femoral vein, popliteal vein, and visualized calf veins. Right leg: No evidence of deep venous thrombosis. Normal response to augmentation, normal compressibility and normal phasicity is demonstrated. Visualized calf veins are patent. Left leg: No evidence of deep venous thrombosis. Normal response to augmentation, normal compressibility and normal phasicity is demonstrated. Visualized calf veins are patent. Impression: Negative for deep venous thrombosis Electronically signed by: Sumit Grigsby MD (07/21/2018 9:33 PM) [id number]
[2018-07-21 22:00] VITALS: BP 145/75
[2018-07-21 23:00] VITALS: BP 140/78
[2018-07-21] MEDS: MORPHINE SULFATE 4 MG/ML VIAL. IV PRN (23:15)
[2018-07-21 23:59] VITALS: BP 151/72
[2018-07-22] VITALS (16 sets, daily range): BP systolic 141–180; BP diastolic 72–99
[2018-07-22] MEDS: MORPHINE SULFATE 4 MG/ML VIAL. IV PRN ×5 (01:34→16:11)
[2018-07-22] MEDS: HYDROmorphone 2 MG TABLET PO PRN ×3 (03:29→18:28)
--- NOTE | 2018-07-22 06:35 | PDOC ---
Provider Note Provider Note [id number] acute resp fail abnl cxr penumonia ?pe agree w v/q scan see orders DELILAH SIN MD Jul 22, 2018 06:35
--- NOTE | 2018-07-22 06:41 | NUR ---
Patient is requesting morphine at this time. Patient is slurring words and speech not clear at this time. Nurse holding pain medication at this time due to patients condition. Physician notified at this time. Will continue to assess
[2018-07-22] MEDS ORDERED: ALPR2TAB5 PO (07:28)
[2018-07-22] MEDS ORDERED: HYDR4TAB45 PO (07:30)
[2018-07-22] MEDS: IPRATRPIUM/ALBUTEROL 0.5/2.5MG 3 ML NEBU. NEB SCH ×4 (07:33→19:58)
[2018-07-22] MEDS: PANTOPRAZOLE 40 MG TABLET.DR. PO SCH (08:11)
--- NOTE | 2018-07-22 08:18 | NUR ---
Pt awake and alert, is able to answer questions, discusses home dosing schedule at length. Pt's BP is elevated @ 180/105, pt requesting restart of home metoprolol.
--- NOTE | 2018-07-22 08:21 | CONS ---
DATE OF CONSULTATION: 07/22/2018 I was asked to see this 38-year-old gentleman for acute respiratory failure. HISTORY OF PRESENT ILLNESS: He is a lifelong nonsmoker. He states that he has been on oxygen. He was told to use it 24, but he does not use it 24/. He does have sleep apnea, but has not been treated. Apparently, the insurance did not approve his CPAP machine. He did have a low grade temperature 2 days ago. Yesterday, he started to have shortness of breath, cough with yellow sputum production. He denies chest pain. He does have back pain. He denies gastroesophageal reflux symptoms. 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 His children are not sick. On arrival to the Emergency Room, his O2 saturation was in 50s. He was given a nebulizer treatment and he has improved his O2 saturation on 4 liters of oxygen, currently is 94%. PAST MEDICAL HISTORY: Obstructive sleep apnea-hypopnea syndrome, status post appendectomy, cholecystectomy, tonsillectomy, back surgery, anxiety. ALLERGIES: PENICILLINS, KETOROLAC, TRAMADOL. SOCIAL HISTORY: He is a lifelong nonsmoker. FAMILY HISTORY: There is no history of lung disease. MEDICATION: Levaquin, DuoNeb, hydromorphone, heparin drip. REVIEW OF SYSTEMS: As mentioned as above, other systems otherwise negative. PHYSICAL EXAMINATION: GENERAL: The patient is an obese gentleman. VITAL SIGNS: His O2 saturation on 4 liters of oxygen is 94%, respiratory rate 18, heart rate 100, blood pressure 160/72, temperature 98.4. HEENT: Normocephalic, atraumatic. Pupils equal, round, reactive to light. Throat is clear. There is shallow oropharynx. Nose: There is inflamed mucosa. NECK: Short thick neck. There is no JVD, lymphadenopathy or thyromegaly. CARDIOVASCULAR: Regular rate and rhythm. PMI is nondisplaced. CHEST: Inspection is normal. LUNGS: There are bibasilar crackles. Percussion is within normal limits. ABDOMEN: Soft and obese. Bowel sounds are good. EXTREMITIES: There is no edema. LYMPHATICS: There is no lymphadenopathy. NEUROLOGIC: Alert and oriented x 3. SKIN: Warm. LABORATORY DATA: I reviewed the following lab data: Influenza A and B negative. ABG yesterday pH 7.27, pCO2 of 65, pO2 of 66 on 60% FiO2. Sodium 140, potassium 4.4, chloride 102, CO2 of 31, glucose 110, BUN 18, creatinine 0.9. Troponin 3706. Procalcitonin 0.14. Troponin less than 0.01. Lactic acid 1.2. WBC 12.3, hemoglobin 13.4, platelets 302. Chest x-ray shows increased interstitial marking with cardiomegaly. CT angiogram of the chest did show no evidence of central pulmonary embolism, but there is questionable filling defect in distal segmental branch of right lower lobe pulmonary artery, diffuse airspace infiltrate in left upper lobe, left lower lobe, right lower lobe, right upper lobe, few prominent lymph nodes. His lower extremity venous duplex is negative. IMPRESSION: 1. Acute respiratory failure secondary to pneumonia, ?pulmonary embolism, ?congestive heart failure. 2. Abnormal chest x-ray and CT of the chest. 3. Pneumonia. 4. Leukocytosis. 5. Obstructive sleep apnea-hypopnea syndrome. RECOMMENDATION: 1. Titrate FiO2 to keep O2 saturation 92%. 2. Bronchodilator. 3. Continue Levaquin. 4. Follow up blood cultures. 5. Urine for legionella and Strep pneumoniae antigen. 6. Add Protonix for stress ulcer prophylaxis. 7. Continue heparin. 8. Agree with V/Q scan. 9. I have discussed obstructive sleep apnea-hypopnea syndrome, the importance of diagnosis and treatment, if untreated increased cardiovascular and S[employer]IOR TECH[employer]ICAL RE[employer] morbidity and mortality. I do recommend a sleep study as an outpatient. 10. Continue heparin for now. 11. Echocardiogram. 12. The findings and recommendations were discussed with the patient and RN. I have answered all of the patient's questions and he understood and agreed to proceed with the plan. Thank you very much for allowing me to participate in care of this very nice gentleman. DELILAH SIN M.D. : [facility] JOB#: [id number] / [id number]
[2018-07-22] MEDS: ALPRAZolam 1 MG TABLET PO SCH ×2 (09:05→21:07)
[2018-07-22 09:49] LABS: BASO % 1 % (0-3); EOS # 0.2 x10^3/uL (0.0-0.7); EOS % 2 % (0-3); HEMATOCRIT 36.4 % (39.0-53.0); HEMOGLOBIN 11.7 g/dL (13.0-17.5); LYMPH # 1.5 x10^3/uL (1.0-4.8); LYMPH % 22 % (24-48); MEAN CORPUSCULAR HEMOGLOBIN 27 pg (25-35); MEAN CORPUSCULAR HGB CONC 32 g/dL (31-37); MEAN CORPUSCULAR VOLUME 85 fL (79-100); MONO # 0.3 x10^3/uL (0.0-1.1); MONO % 4 % (0-9); NEUT # 4.9 x10^3uL (1.8-7.7); NEUT % 71 % (31-73); PLATELET COUNT 236 x10^3/uL (140-400); RED BLOOD COUNT 4.28 x10^6/uL (4.30-5.70); RED CELL DISTRIBUTION WIDTH 17.2 % (11.5-14.5)
[2018-07-22 10:09] LABS: CALCIUM 8.1 mg/dL (8.5-10.1); CREATININE 0.8 mg/dL (0.7-1.3); GFR 108.8; POTASSIUM 3.9 mmol/L (3.5-5.1)
--- NOTE | 2018-07-22 10:26 | NUR ---
UFH is 0.40, second value WNL. No change indicated, MD notified of result.
--- NOTE | 2018-07-22 11:53 | PDOC ---
PROGRESS NOTES Chief Complaint Chief Complaint sob, acute resp failure, bl HAP possible small PE h/o toxic encephalopathy with drug over dose, on dilaudid and ativan h/o resp failure with meds overdose, with benzo, pain meds and depression meds chronic back pain with h/o sx ADHD H/O GA and cardiac arrest with resp failure and meds overdose h/o kidney stone mild dementia with memory loss rt groin cellulitis/abscess s/p i and d 06/07 with packing, still not healed opiods dependence plan: pulm consulted, VQ scan heparin for now add levaquin for now duoneb, albuterol prn, cough meds cont metoprolol, hold asa given on heparin drip NC for now wound care pt on high dose dilaudid and xanax at home, cont for now, close watch Mental and pulm status. ok to transfer out of ICU History of Present Illness History of Present Illness ROS: no fever, chills, sob or chest pain came for sob, cough, 07/22: sob better, seen in ICU, wo NC snoring. c/o pain, want dilaudid q4h. neg DVT. Vitals Vitals Vital Signs Date Time Temp Pulse Resp B/P (MAP) Pulse Ox O2 Delivery O2 Flow Rate FiO2 07/22/18 11:08 16 95 Room Air 07/22/18 10:00 98 07/22/18 09:09 4.0 07/22/18 07:00 98.9 98.9 Physical Exam General: Alert, Oriented X3, Cooperative Heart: Regular rate, Normal S1, Normal S2 Lungs: Other (bl deminished bs) Abdomen: Normal bowel sounds, Soft Extremities: No clubbing, No cyanosis Skin: No rashes Labs LABS Laboratory Tests Test 07/21/18 13:30 07/21/18 13:54 07/21/18 16:36 07/22/18 00:30 O2 Saturation 91 % (92-99) Arterial Blood pH 7.27 (7.35-7.45) Arterial Blood pCO2 at Patient Temp 65 mmHg (35-46) Arterial Blood pO2 at Patient Temp 66 mmHg (85-108) Arterial Blood HCO3 29 mmol/L (21-28) Arterial Blood Base Excess 1 mmol/L (-3-3) FiO2 60 White Blood Count 12.3 x10^3/uL (4.0-11.0) Red Blood Count 4.90 x10^6/uL (4.30-5.70) Hemoglobin 13.4 g/dL (13.0-17.5) Hematocrit 41.8 % (39.0-53.0) Mean Corpuscular Volume 85 fL (79-100) Mean Corpuscular Hemoglobin 27 pg (25-35) Mean Corpuscular Hemoglobin Concent 32 g/dL (31-37) Red Cell Distribution Width 17.6 % (11.5-14.5) Platelet Count 302 x10^3/uL (140-400) Neutrophils (%) (Auto) 86 % (31-73) Lymphocytes (%) (Auto) 9 % (24-48) Monocytes (%) (Auto) 4 % (0-9) Eosinophils (%) (Auto) 0 % (0-3) Basophils (%) (Auto) 1 % (0-3) Neutrophils # (Auto) 10.7 x10^3uL (1.8-7.7) Lymphocytes # (Auto) 1.1 x10^3/uL (1.0-4.8) Monocytes # (Auto) 0.5 x10^3/uL (0.0-1.1) Eosinophils # (Auto) 0.0 x10^3/uL (0.0-0.7) Basophils # (Auto) 0.1 x10^3/uL (0.0-0.2) Segmented Neutrophils % 87 % (35-66) Lymphocytes % 10 % (24-48) Monocytes % 1 % (0-10) Eosinophils % 1 % (0-5) Basophils % 1 % (0-3) Platelet Estimate Adequate (ADEQUATE) Large Platelets Occ Anisocytosis Slight Stomatocytes Few Sodium Level 140 mmol/L (136-145) Potassium Level 4.4 mmol/L (3.5-5.1) Chloride Level 102 mmol/L (98-107) Carbon Dioxide Level 31 mmol/L (21-32) Anion Gap 7 (6-14) Blood Urea Nitrogen 18 mg/dL (8-26) Creatinine 0.9 mg/dL (0.7-1.3) Estimated GFR (Cockcroft-Gault) 95.0 Glucose Level 110 mg/dL (70-99) Lactic Acid Level 1.2 mmol/L (0.4-2.0) Calcium Level 8.5 mg/dL (8.5-10.1) Troponin I Quantitative < 0.017 ng/mL (0.000-0.055) EU-Cdy-G-Type Natriuretic Peptide 3706 pg/mL (0-124) Procalcitonin 0.14 ng/mL (0.00-0.10) Influenza Type A Antigen Negative (NEGATIVE) Influenza Type B Antigen Negative (NEGATIVE) Heparin Anti-Xa Act, Unfractionated 0.38 IU/mL (0.30-0.70) Test 07/22/18 09:15 White Blood Count 7.0 x10^3/uL (4.0-11.0) Red Blood Count 4.28 x10^6/uL (4.30-5.70) Hemoglobin 11.7 g/dL (13.0-17.5) Hematocrit 36.4 % (39.0-53.0) Mean Corpuscular Volume 85 fL (79-100) Mean Corpuscular Hemoglobin 27 pg (25-35) Mean Corpuscular Hemoglobin Concent 32 g/dL (31-37) Red Cell Distribution Width 17.2 % (11.5-14.5) Platelet Count 236 x10^3/uL (140-400) Neutrophils (%) (Auto) 71 % (31-73) Lymphocytes (%) (Auto) 22 % (24-48) Monocytes (%) (Auto) 4 % (0-9) Eosinophils (%) (Auto) 2 % (0-3) Basophils (%) (Auto) 1 % (0-3) Neutrophils # (Auto) 4.9 x10^3uL (1.8-7.7) Lymphocytes # (Auto) 1.5 x10^3/uL (1.0-4.8) Monocytes # (Auto) 0.3 x10^3/uL (0.0-1.1) Eosinophils # (Auto) 0.2 x10^3/uL (0.0-0.7) Basophils # (Auto) 0.0 x10^3/uL (0.0-0.2) Heparin Anti-Xa Act, Unfractionated 0.40 IU/mL (0.30-0.70) Sodium Level 140 mmol/L (136-145) Potassium Level 3.9 mmol/L (3.5-5.1) Chloride Level 103 mmol/L (98-107) Carbon Dioxide Level 35 mmol/L (21-32) Anion Gap 2 (6-14) Blood Urea Nitrogen 8 mg/dL (8-26) Creatinine 0.8 mg/dL (0.7-1.3) Estimated GFR (Cockcroft-Gault) 108.8 Glucose Level 118 mg/dL (70-99) Calcium Level 8.1 mg/dL (8.5-10.1) Assessment and Plan Assessmemt and Plan Problems Medical Problems: (1) Hypoxia Status: Acute (2) Multifocal pneumonia Status: Acute (3) Pulmonary embolism Status: Acute (4) Respiratory acidosis Status: Acute Comment Review of Relevant I have reviewed the following items amanad (where applicable) has been applied. Labs Laboratory Tests Test 07/21/18 13:30 07/21/18 13:54 07/21/18 16:36 07/22/18 00:30 O2 Saturation 91 % (92-99) Arterial Blood pH 7.27 (7.35-7.45) Arterial Blood pCO2 at Patient Temp 65 mmHg (35-46) Arterial Blood pO2 at Patient Temp 66 mmHg (85-108) Arterial Blood HCO3 29 mmol/L (21-28) Arterial Blood Base Excess 1 mmol/L (-3-3) FiO2 60 White Blood Count 12.3 x10^3/uL (4.0-11.0) Red Blood Count 4.90 x10^6/uL (4.30-5.70) Hemoglobin 13.4 g/dL (13.0-17.5) Hematocrit 41.8 % (39.0-53.0) Mean Corpuscular Volume 85 fL (79-100) Mean Corpuscular Hemoglobin 27 pg (25-35) Mean Corpuscular Hemoglobin Concent 32 g/dL (31-37) Red Cell Distribution Width 17.6 % (11.5-14.5) Platelet Count 302 x10^3/uL (140-400) Neutrophils (%) (Auto) 86 % (31-73) Lymphocytes (%) (Auto) 9 % (24-48) Monocytes (%) (Auto) 4 % (0-9) Eosinophils (%) (Auto) 0 % (0-3) Basophils (%) (Auto) 1 % (0-3) Neutrophils # (Auto) 10.7 x10^3uL (1.8-7.7) Lymphocytes # (Auto) 1.1 x10^3/uL (1.0-4.8) Monocytes # (Auto) 0.5 x10^3/uL (0.0-1.1) Eosinophils # (Auto) 0.0 x10^3/uL (0.0-0.7) Basophils # (Auto) 0.1 x10^3/uL (0.0-0.2) Segmented Neutrophils % 87 % (35-66) Lymphocytes % 10 % (24-48) Monocytes % 1 % (0-10) Eosinophils % 1 % (0-5) Basophils % 1 % (0-3) Platelet Estimate Adequate (ADEQUATE) Large Platelets Occ Anisocytosis Slight Stomatocytes Few Sodium Level 140 mmol/L (136-145) Potassium Level 4.4 mmol/L (3.5-5.1) Chloride Level 102 mmol/L (98-107) Carbon Dioxide Level 31 mmol/L (21-32) Anion Gap 7 (6-14) Blood Urea Nitrogen 18 mg/dL (8-26) Creatinine 0.9 mg/dL (0.7-1.3) Estimated GFR (Cockcroft-Gault) 95.0 Glucose Level 110 mg/dL (70-99) Lactic Acid Level 1.2 mmol/L (0.4-2.0) Calcium Level 8.5 mg/dL (8.5-10.1) Troponin I Quantitative < 0.017 ng/mL (0.000-0.055) WE-Sfw-K-Type Natriuretic Peptide 3706 pg/mL (0-124) Procalcitonin 0.14 ng/mL (0.00-0.10) Influenza Type A Antigen Negative (NEGATIVE) Influenza Type B Antigen Negative (NEGATIVE) Heparin Anti-Xa Act, Unfractionated 0.38 IU/mL (0.30-0.70) Test 07/22/18 09:15 White Blood Count 7.0 x10^3/uL (4.0-11.0) Red Blood Count 4.28 x10^6/uL (4.30-5.70) Hemoglobin 11.7 g/dL (13.0-17.5) Hematocrit 36.4 % (39.0-53.0) Mean Corpuscular Volume 85 fL (79-100) Mean Corpuscular Hemoglobin 27 pg (25-35) Mean Corpuscular Hemoglobin Concent 32 g/dL (31-37) Red Cell Distribution Width 17.2 % (11.5-14.5) Platelet Count 236 x10^3/uL (140-400) Neutrophils (%) (Auto) 71 % (31-73) Lymphocytes (%) (Auto) 22 % (24-48) Monocytes (%) (Auto) 4 % (0-9) Eosinophils (%) (Auto) 2 % (0-3) Basophils (%) (Auto) 1 % (0-3) Neutrophils # (Auto) 4.9 x10^3uL (1.8-7.7) Lymphocytes # (Auto) 1.5 x10^3/uL (1.0-4.8) Monocytes # (Auto) 0.3 x10^3/uL (0.0-1.1) Eosinophils # (Auto) 0.2 x10^3/uL (0.0-0.7) Basophils # (Auto) 0.0 x10^3/uL (0.0-0.2) Heparin Anti-Xa Act, Unfractionated 0.40 IU/mL (0.30-0.70) Sodium Level 140 mmol/L (136-145) Potassium Level 3.9 mmol/L (3.5-5.1) Chloride Level 103 mmol/L (98-107) Carbon Dioxide Level 35 mmol/L (21-32) Anion Gap 2 (6-14) Blood Urea Nitrogen 8 mg/dL (8-26) Creatinine 0.8 mg/dL (0.7-1.3) Estimated GFR (Cockcroft-Gault) 108.8 Glucose Level 118 mg/dL (70-99) Calcium Level 8.1 mg/dL (8.5-10.1) Laboratory Tests Test 07/21/18 13:30 07/21/18 13:54 07/21/18 16:36 07/22/18 00:30 O2 Saturation 91 % (92-99) Arterial Blood pH 7.27 (7.35-7.45) Arterial Blood pCO2 at Patient Temp 65 mmHg (35-46) Arterial Blood pO2 at Patient Temp 66 mmHg (85-108) Arterial Blood HCO3 29 mmol/L (21-28) Arterial Blood Base Excess 1 mmol/L (-3-3) FiO2 60 White Blood Count 12.3 x10^3/uL (4.0-11.0) Red Blood Count 4.90 x10^6/uL (4.30-5.70) Hemoglobin 13.4 g/dL (13.0-17.5) Hematocrit 41.8 % (39.0-53.0) Mean Corpuscular Volume 85 fL (79-100) Mean Corpuscular Hemoglobin 27 pg (25-35) Mean Corpuscular Hemoglobin Concent 32 g/dL (31-37) Red Cell Distribution Width 17.6 % (11.5-14.5) Platelet Count 302 x10^3/uL (140-400) Neutrophils (%) (Auto) 86 % (31-73) Lymphocytes (%) (Auto) 9 % (24-48) Monocytes (%) (Auto) 4 % (0-9) Eosinophils (%) (Auto) 0 % (0-3) Basophils (%) (Auto) 1 % (0-3) Neutrophils # (Auto) 10.7 x10^3uL (1.8-7.7) Lymphocytes # (Auto) 1.1 x10^3/uL (1.0-4.8) Monocytes # (Auto) 0.5 x10^3/uL (0.0-1.1) Eosinophils # (Auto) 0.0 x10^3/uL (0.0-0.7) Basophils # (Auto) 0.1 x10^3/uL (0.0-0.2) Segmented Neutrophils % 87 % (35-66) Lymphocytes % 10 % (24-48) Monocytes % 1 % (0-10) Eosinophils % 1 % (0-5) Basophils % 1 % (0-3) Platelet Estimate Adequate (ADEQUATE) Large Platelets Occ Anisocytosis Slight Stomatocytes Few Sodium Level 140 mmol/L (136-145) Potassium Level 4.4 mmol/L (3.5-5.1) Chloride Level 102 mmol/L (98-107) Carbon Dioxide Level 31 mmol/L (21-32) Anion Gap 7 (6-14) Blood Urea Nitrogen 18 mg/dL (8-26) Creatinine 0.9 mg/dL (0.7-1.3) Estimated GFR (Cockcroft-Gault) 95.0 Glucose Level 110 mg/dL (70-99) Lactic Acid Level 1.2 mmol/L (0.4-2.0) Calcium Level 8.5 mg/dL (8.5-10.1) Troponin I Quantitative < 0.017 ng/mL (0.000-0.055) YV-Xfq-N-Type Natriuretic Peptide 3706 pg/mL (0-124) Procalcitonin 0.14 ng/mL (0.00-0.10) Influenza Type A Antigen Negative (NEGATIVE) Influenza Type B Antigen Negative (NEGATIVE) Heparin Anti-Xa Act, Unfractionated 0.38 IU/mL (0.30-0.70) Test 07/22/18 09:15 White Blood Count 7.0 x10^3/uL (4.0-11.0) Red Blood Count 4.28 x10^6/uL (4.30-5.70) Hemoglobin 11.7 g/dL (13.0-17.5) Hematocrit 36.4 % (39.0-53.0) Mean Corpuscular Volume 85 fL (79-100) Mean Corpuscular Hemoglobin 27 pg (25-35) Mean Corpuscular Hemoglobin Concent 32 g/dL (31-37) Red Cell Distribution Width 17.2 % (11.5-14.5) Platelet Count 236 x10^3/uL (140-400) Neutrophils (%) (Auto) 71 % (31-73) Lymphocytes (%) (Auto) 22 % (24-48) Monocytes (%) (Auto) 4 % (0-9) Eosinophils (%) (Auto) 2 % (0-3) Basophils (%) (Auto) 1 % (0-3) Neutrophils # (Auto) 4.9 x10^3uL (1.8-7.7) Lymphocytes # (Auto) 1.5 x10^3/uL (1.0-4.8) Monocytes # (Auto) 0.3 x10^3/uL (0.0-1.1) Eosinophils # (Auto) 0.2 x10^3/uL (0.0-0.7) Basophils # (Auto) 0.0 x10^3/uL (0.0-0.2) Heparin Anti-Xa Act, Unfractionated 0.40 IU/mL (0.30-0.70) Sodium Level 140 mmol/L (136-145) Potassium Level 3.9 mmol/L (3.5-5.1) Chloride Level 103 mmol/L (98-107) Carbon Dioxide Level 35 mmol/L (21-32) Anion Gap 2 (6-14) Blood Urea Nitrogen 8 mg/dL (8-26) Creatinine 0.8 mg/dL (0.7-1.3) Estimated GFR (Cockcroft-Gault) 108.8 Glucose Level 118 mg/dL (70-99) Calcium Level 8.1 mg/dL (8.5-10.1) Medications Current Medications Albuterol/ Ipratropium (Duoneb) 3 ml 1X ONCE NEB Last administered on at 13:38; Start 07/21/18 at 13:30; Stop 07/21/18 at 13:31; Status DC Albuterol Sulfate (Ventolin Neb Soln) 10 mg 1X ONCE CONT NEB Last administered on 07/21/18at 14:38; Start 07/21/18 at 14:15; Stop 07/21/18 at 14:16 ; Status DC Iohexol (Omnipaque 350 Mg/ml) 100 ml 1X ONCE IV Last administered on at 14:15; Start 07/21/18 at 14:15; Stop 07/21/18 at 14:16; Status DC Info (CONTRAST GIVEN -- Rx MONITORING) 1 each PRN DAILY PRN SEE COMMENTS; Start 07/21/18 at 14:30; Stop 07/23/18 at 14:29 Levofloxacin/ Dextrose 150 ml @ 100 mls/hr 1X ONCE IV Last administered on at 16:08; Start 07/21/18 at 15:30; Stop 07/21/18 at 16:59; Status DC Hydromorphone HCl (Dilaudid) 4 mg 1X ONCE PO Last administered on 07/21/18at 16 :29; Start 07/21/18 at 16:30; Stop 07/21/18 at 16:31; Status DC Heparin Sodium/ Dextrose 500 ml @ 0 mls/hr CONT PRN IV SEE I/O RECORD; Start at 16:45; Stop 07/21/18 at 16:45; Status DC Heparin Sodium (Porcine) (Heparin Sodium) 3,750 unit PRN Q6HRS PRN IV FOR UFH LEVEL LESS THAN 0.2; Start 07/21/18 at 16:45 Heparin Sodium (Porcine) (Heparin Sodium) 1,850 unit PRN Q6HRS PRN IV FOR UFH LEVEL 0.2 - 0.29; Start 07/21/18 at 16:45 Heparin Sodium/ Dextrose 500 ml @ 40 mls/hr CONT PRN IV SEE I/O RECORD Last administered on 07/21/18at 17:43; Start 07/21/18 at 16:45 Ondansetron HCl (Zofran) 4 mg PRN Q8HRS PRN IV NAUSEA/VOMITING; Start 07/21/18 at 16:45; Stop 07/22/18 at 07:23; Status DC Morphine Sulfate (Morphine Sulfate) 4 mg PRN Q2HR PRN IV PAIN Last administered on 07/22/18at 10:38; Start 07/21/18 at 16:45; Stop 07/22/18 at 16:44 Acetaminophen (Tylenol) 650 mg PRN Q4HRS PRN PO FEVER; Start 07/21/18 at 16:45 ; Stop 07/22/18 at 07:23; Status DC Albuterol/ Ipratropium (Duoneb) 3 ml RTQID NEB ; Start 07/21/18 at 20:00; Stop 07/21/18 at 20:00; Status DC Info (Anti-Coagulation Monitoring By Pharmacy) 1 each PRN DAILY PRN MC SEE COMMENTS; Start 07/21/18 at 16:45 Acetaminophen (Tylenol) 650 mg PRN Q6HRS PRN PO FEVER Last administered on 07/22at 08:11; Start 07/21/18 at 17:45 Ondansetron HCl (Zofran) 4 mg PRN Q6HRS PRN IV NAUSEA/VOMITING; Start 07/21/18 at 17:45 Morphine Sulfate (Morphine Sulfate) 2 mg PRN Q2HR PRN IV MODERATE TO SEVERE PAIN; Start 07/21/18 at 17:45; Stop 07/21/18 at 17:53; Status DC Hydralazine HCl (Apresoline Inj) 10 mg PRN Q4HRS PRN IVP ELEVATED BP, SEE COMMENTS; Start 07/21/18 at 17:45 Docusate Sodium (Colace) 100 mg PRN DAILY PRN PO CONSTIPATION; Start 07/21/18 at 17:45 Albuterol/ Ipratropium (Duoneb) 3 ml RTQID NEB Last administered on 07/22/18at 07:33; Start 07/21/18 at 20:00 Albuterol Sulfate (Ventolin Neb Soln) 2.5 mg PRN Q2HR PRN NEB SHORTNESS OF BREATH; Start 07/21/18 at 17:45 Guaifenesin (Mucinex) 600 mg BID PO Last administered on 07/22/18at 08:11; Start 07/21/18 at 21:00 Levofloxacin/ Dextrose 150 ml @ 100 mls/hr Q24H IV ; Start 07/22/18 at 16:00 Alprazolam (Xanax) 2 mg BID PO Last administered on 07/22/18at 09:05; Start at 21:00 Hydromorphone HCl (Dilaudid) 4 mg PRN Q6HRS PRN PO PAIN; Start 07/21/18 at 18: 00; Stop 07/21/18 at 20:36; Status DC Hydromorphone HCl (Dilaudid) 4 mg PRN Q6HRS PRN PO SEVERE PAIN Last administered on 07/22/18at 03:29; Start 07/21/18 at 20:36 Pantoprazole Sodium (Protonix) 40 mg DAILYAC PO Last administered on 07/22/18at 08:11; Start 07/22/18 at 07:30 Active Scripts Active Reported Dilaudid (Hydromorphone Hcl) 4 Mg Tablet 4 Mg PO PRN Q6HRS PRN Alprazolam 2 Mg Tablet 2 Mg PO PRN BID PRN Aspirin 81 Mg Tab.chew 1 Tab PO DAILY Metoprolol Tartrate 50 Mg Tablet 1 Tab PO BID Vitals/I & O Vital Sign - Last 24 Hours 07/21/18 07/21/18 07/21/18 07/21/18 13:10 13:30 13:45 14:17 Temp 97.5 97.5 Pulse 106 94 Resp 20 24 B/P (MAP) 110/69 (83) 127/72 (90) Pulse Ox 54 91 94 O2 Delivery Room Air Nasal Cannula Nasal Cannula Nasal Cannula O2 Flow Rate 10.0 10.0 10.0 07/21/18 07/21/18 07/21/18 07/21/18 14:43 14:47 15:10 15:40 Pulse 92 96 94 Resp 22 24 22 B/P (MAP) 118/67 (84) 143/84 (103) 151/92 (111) Pulse Ox 95 98 10 94 O2 Delivery Nasal Cannula Nasal Cannula Nasal Cannula Nasal Cannula O2 Flow Rate 10.0 10.0 4.0 07/21/18 07/21/18 07/21/18 07/21/18 16:10 16:40 17:10 17:40 Pulse 96 94 96 96 Resp 24 22 20 20 B/P (MAP) 133/73 (93) 148/86 (106) 133/77 (95) 146/79 (101) Pulse Ox 96 97 96 98 O2 Delivery Nasal Cannula Nasal Cannula Nasal Cannula Nasal Cannula O2 Flow Rate 4.0 4.0 4.0 4.0 07/21/18 07/21/18 07/21/18 07/21/18 18:35 19:00 19:34 20:00 Pulse 95 98 Resp 16 16 B/P (MAP) 112/73 (86) 115/70 (85) Pulse Ox 94 94 98 O2 Delivery Nasal Cannula Nasal Cannula Nasal Cannula Nasal Cannula O2 Flow Rate 4.0 4.0 5.0 4.0 07/21/18 07/21/18 07/21/18 07/21/18 20:41 21:00 22:00 23:00 Temp 99.0 99.0 Pulse 98 101 98 Resp 14 16 16 16 B/P (MAP) 135/73 (93) 145/75 (98) 140/78 (98) Pulse Ox 97 96 96 96 O2 Delivery Nasal Cannula Nasal Cannula Nasal Cannula Nasal Cannula O2 Flow Rate 4.0 4.0 4.0 4.0 07/21/18 07/21/18 07/21/18 07/22/18 23:15 23:59 23:59 01:00 Temp 99.1 99.1 Pulse 95 90 Resp 18 16 16 B/P (MAP) 151/72 (98) 163/91 (115) Pulse Ox 96 96 96 O2 Delivery Nasal Cannula Nasal Cannula Nasal Cannula Nasal Cannula O2 Flow Rate 4.0 4.0 2.0 2.0 07/22/18 07/22/18 07/22/18 07/22/18 01:34 02:00 03:00 03:29 Pulse 102 98 Resp 18 16 16 16 B/P (MAP) 143/93 (110) 162/75 (104) Pulse Ox 96 96 93 93 O2 Delivery Nasal Cannula Nasal Cannula Nasal Cannula Nasal Cannula O2 Flow Rate 4.0 2.0 2.0 4.0 07/22/18 07/22/18 07/22/18 07/22/18 03:44 04:00 04:00 04:14 Temp 98.4 98.4 Pulse 91 Resp 16 17 B/P (MAP) 150/72 (98) Pulse Ox 93 94 94 O2 Delivery Nasal Cannula Nasal Cannula Nasal Cannula Nasal Cannula O2 Flow Rate 4.0 4.0 4.0 4.0 07/22/18 07/22/18 07/22/18 07/22/18 05:00 06:00 07:00 07:36 Temp 98.9 98.9 Pulse 99 101 83 Resp 16 16 18 B/P (MAP) 160/76 (104) 169/94 (119) 180/99 (126) Pulse Ox 94 94 95 O2 Delivery Nasal Cannula Nasal Cannula Nasal Cannula Nasal Cannula O2 Flow Rate 4.0 4.0 4.0 5.0 07/22/18 07/22/18 07/22/18 07/22/18 08:00 08:10 08:40 09:09 Resp 18 16 B/P (MAP) 159/88 (111) Pulse Ox 95 O2 Delivery Nasal Cannula Nasal Cannula Nasal Cannula O2 Flow Rate 4.0 5.0 4.0 4.0 07/22/18 07/22/18 07/22/18 10:00 10:38 11:08 Pulse 98 Resp 18 16 B/P (MAP) Pulse Ox 94 95 O2 Delivery Room Air Nasal Cannula Room Air Intake and Output 07/21/18 07/21/18 07/22/18 15:01 23:01 07:01 Intake Total 150 ml 500 ml Output Total 340 ml 2000 ml Balance -190 ml -1500 ml DOMINGO HAMMONDS MD Jul 22, 2018 11:53
[2018-07-22] MEDS: METOPROLOL TART IMMED RELEASE 50 MG TABLET. PO SCH ×2 (12:21→21:08)
--- NOTE | 2018-07-22 12:30 | NUR ---
Pt is requesting retiming of PO Dilaudid, based on home dosing schedule. Pt would like dilaudid changed from Q6 PRN to Q4 PRN, based on missed dose.
--- NOTE | 2018-07-22 18:47 | NUR ---
Received patient from ICU, this nurse agrees with prior nurses assessments, patient stable and resting comfortably at time of transfer.
[2018-07-22] MEDS: HEPARIN 25,000UTS/500ML PREMIX 500 ML IV PRN (21:27)
[2018-07-23] MEDS: HYDROmorphone 2 MG TABLET PO PRN ×4 (00:28→14:48)
[2018-07-23 03:34] VITALS: BP 131/74
[2018-07-23] MEDS: PANTOPRAZOLE 40 MG TABLET.DR. PO SCH (06:32)
[2018-07-23 07:00] VITALS: BP 151/100
[2018-07-23] MEDS: IPRATRPIUM/ALBUTEROL 0.5/2.5MG 3 ML NEBU. NEB SCH ×2 (07:28→12:00)
[2018-07-23 08:17] LABS: BASO # 0.1 x10^3/uL (0.0-0.2); BASO % 1 % (0-3); EOS # 0.4 x10^3/uL (0.0-0.7); EOS % 5 % (0-3); HEMATOCRIT 35.6 % (39.0-53.0); HEMOGLOBIN 11.9 g/dL (13.0-17.5); LYMPH # 2.4 x10^3/uL (1.0-4.8); LYMPH % 35 % (24-48); MEAN CORPUSCULAR HEMOGLOBIN 28 pg (25-35); MEAN CORPUSCULAR HGB CONC 33 g/dL (31-37); MEAN CORPUSCULAR VOLUME 84 fL (79-100); MONO # 0.4 x10^3/uL (0.0-1.1); MONO % 6 % (0-9); NEUT # 3.8 x10^3uL (1.8-7.7); NEUT % 54 % (31-73); PLATELET COUNT 258 x10^3/uL (140-400); RED BLOOD COUNT 4.26 x10^6/uL (4.30-5.70); RED CELL DISTRIBUTION WIDTH 17.3 % (11.5-14.5)
[2018-07-23] MEDS: ALPRAZolam 1 MG TABLET PO SCH (08:20)
[2018-07-23] MEDS: METOPROLOL TART IMMED RELEASE 50 MG TABLET. PO SCH (08:21)
[2018-07-23 08:42] LABS: CREATININE 0.8 mg/dL (0.7-1.3); GFR 108.8; POTASSIUM 3.8 mmol/L (3.5-5.1)
--- NOTE | 2018-07-23 09:36 | PDOC ---
PULMONARY PROGRESS NOTES Subjective sob better, no cough, or cp Vitals Vital Signs Date Time Temp Pulse Resp B/P (MAP) Pulse Ox O2 Delivery O2 Flow Rate FiO2 07/23/18 08:21 81 151/100 07/23/18 07:30 19 Room Air 07/23/18 07:00 98.2 92 98.2 07/23/18 03:34 4.0 ROS: No Nausea General: Alert, No acute distress HEENT: Other (nc at perrl) Lungs: Crackles, Other (bl deminished bs) Cardiovascular: S1, S2 Abdomen: Soft, Non-tender Neuro Exam: Alert Extremities: No Edema Skin: Warm Labs Laboratory Tests Test 07/21/18 13:30 07/21/18 13:54 07/21/18 16:36 07/22/18 00:30 O2 Saturation 91 % (92-99) Arterial Blood pH 7.27 (7.35-7.45) Arterial Blood pCO2 at Patient Temp 65 mmHg (35-46) Arterial Blood pO2 at Patient Temp 66 mmHg (85-108) Arterial Blood HCO3 29 mmol/L (21-28) Arterial Blood Base Excess 1 mmol/L (-3-3) FiO2 60 White Blood Count 12.3 x10^3/uL (4.0-11.0) Red Blood Count 4.90 x10^6/uL (4.30-5.70) Hemoglobin 13.4 g/dL (13.0-17.5) Hematocrit 41.8 % (39.0-53.0) Mean Corpuscular Volume 85 fL (79-100) Mean Corpuscular Hemoglobin 27 pg (25-35) Mean Corpuscular Hemoglobin Concent 32 g/dL (31-37) Red Cell Distribution Width 17.6 % (11.5-14.5) Platelet Count 302 x10^3/uL (140-400) Neutrophils (%) (Auto) 86 % (31-73) Lymphocytes (%) (Auto) 9 % (24-48) Monocytes (%) (Auto) 4 % (0-9) Eosinophils (%) (Auto) 0 % (0-3) Basophils (%) (Auto) 1 % (0-3) Neutrophils # (Auto) 10.7 x10^3uL (1.8-7.7) Lymphocytes # (Auto) 1.1 x10^3/uL (1.0-4.8) Monocytes # (Auto) 0.5 x10^3/uL (0.0-1.1) Eosinophils # (Auto) 0.0 x10^3/uL (0.0-0.7) Basophils # (Auto) 0.1 x10^3/uL (0.0-0.2) Segmented Neutrophils % 87 % (35-66) Lymphocytes % 10 % (24-48) Monocytes % 1 % (0-10) Eosinophils % 1 % (0-5) Basophils % 1 % (0-3) Platelet Estimate Adequate (ADEQUATE) Large Platelets Occ Anisocytosis Slight Stomatocytes Few Sodium Level 140 mmol/L (136-145) Potassium Level 4.4 mmol/L (3.5-5.1) Chloride Level 102 mmol/L (98-107) Carbon Dioxide Level 31 mmol/L (21-32) Anion Gap 7 (6-14) Blood Urea Nitrogen 18 mg/dL (8-26) Creatinine 0.9 mg/dL (0.7-1.3) Estimated GFR (Cockcroft-Gault) 95.0 Glucose Level 110 mg/dL (70-99) Lactic Acid Level 1.2 mmol/L (0.4-2.0) Calcium Level 8.5 mg/dL (8.5-10.1) Troponin I Quantitative < 0.017 ng/mL (0.000-0.055) JQ-Rlg-Q-Type Natriuretic Peptide 3706 pg/mL (0-124) Procalcitonin 0.14 ng/mL (0.00-0.10) Influenza Type A Antigen Negative (NEGATIVE) Influenza Type B Antigen Negative (NEGATIVE) Heparin Anti-Xa Act, Unfractionated 0.38 IU/mL (0.30-0.70) Test 07/22/18 09:15 07/23/18 07:06 White Blood Count 7.0 x10^3/uL (4.0-11.0) 7.0 x10^3/uL (4.0-11.0) Red Blood Count 4.28 x10^6/uL (4.30-5.70) 4.26 x10^6/uL (4.30-5.70) Hemoglobin 11.7 g/dL (13.0-17.5) 11.9 g/dL (13.0-17.5) Hematocrit 36.4 % (39.0-53.0) 35.6 % (39.0-53.0) Mean Corpuscular Volume 85 fL (79-100) 84 fL (79-100) Mean Corpuscular Hemoglobin 27 pg (25-35) 28 pg (25-35) Mean Corpuscular Hemoglobin Concent 32 g/dL (31-37) 33 g/dL (31-37) Red Cell Distribution Width 17.2 % (11.5-14.5) 17.3 % (11.5-14.5) Platelet Count 236 x10^3/uL (140-400) 258 x10^3/uL (140-400) Neutrophils (%) (Auto) 71 % (31-73) 54 % (31-73) Lymphocytes (%) (Auto) 22 % (24-48) 35 % (24-48) Monocytes (%) (Auto) 4 % (0-9) 6 % (0-9) Eosinophils (%) (Auto) 2 % (0-3) 5 % (0-3) Basophils (%) (Auto) 1 % (0-3) 1 % (0-3) Neutrophils # (Auto) 4.9 x10^3uL (1.8-7.7) 3.8 x10^3uL (1.8-7.7) Lymphocytes # (Auto) 1.5 x10^3/uL (1.0-4.8) 2.4 x10^3/uL (1.0-4.8) Monocytes # (Auto) 0.3 x10^3/uL (0.0-1.1) 0.4 x10^3/uL (0.0-1.1) Eosinophils # (Auto) 0.2 x10^3/uL (0.0-0.7) 0.4 x10^3/uL (0.0-0.7) Basophils # (Auto) 0.0 x10^3/uL (0.0-0.2) 0.1 x10^3/uL (0.0-0.2) Heparin Anti-Xa Act, Unfractionated 0.40 IU/mL (0.30-0.70) 0.35 IU/mL (0.30-0.70) Sodium Level 140 mmol/L (136-145) 139 mmol/L (136-145) Potassium Level 3.9 mmol/L (3.5-5.1) 3.8 mmol/L (3.5-5.1) Chloride Level 103 mmol/L (98-107) 102 mmol/L (98-107) Carbon Dioxide Level 35 mmol/L (21-32) 33 mmol/L (21-32) Anion Gap 2 (6-14) 4 (6-14) Blood Urea Nitrogen 8 mg/dL (8-26) 12 mg/dL (8-26) Creatinine 0.8 mg/dL (0.7-1.3) 0.8 mg/dL (0.7-1.3) Estimated GFR (Cockcroft-Gault) 108.8 108.8 Glucose Level 118 mg/dL (70-99) 96 mg/dL (70-99) Calcium Level 8.1 mg/dL (8.5-10.1) 9.0 mg/dL (8.5-10.1) Laboratory Tests Test 07/23/18 07:06 White Blood Count 7.0 x10^3/uL (4.0-11.0) Red Blood Count 4.26 x10^6/uL (4.30-5.70) Hemoglobin 11.9 g/dL (13.0-17.5) Hematocrit 35.6 % (39.0-53.0) Mean Corpuscular Volume 84 fL (79-100) Mean Corpuscular Hemoglobin 28 pg (25-35) Mean Corpuscular Hemoglobin Concent 33 g/dL (31-37) Red Cell Distribution Width 17.3 % (11.5-14.5) Platelet Count 258 x10^3/uL (140-400) Neutrophils (%) (Auto) 54 % (31-73) Lymphocytes (%) (Auto) 35 % (24-48) Monocytes (%) (Auto) 6 % (0-9) Eosinophils (%) (Auto) 5 % (0-3) Basophils (%) (Auto) 1 % (0-3) Neutrophils # (Auto) 3.8 x10^3uL (1.8-7.7) Lymphocytes # (Auto) 2.4 x10^3/uL (1.0-4.8) Monocytes # (Auto) 0.4 x10^3/uL (0.0-1.1) Eosinophils # (Auto) 0.4 x10^3/uL (0.0-0.7) Basophils # (Auto) 0.1 x10^3/uL (0.0-0.2) Heparin Anti-Xa Act, Unfractionated 0.35 IU/mL (0.30-0.70) Sodium Level 139 mmol/L (136-145) Potassium Level 3.8 mmol/L (3.5-5.1) Chloride Level 102 mmol/L (98-107) Carbon Dioxide Level 33 mmol/L (21-32) Anion Gap 4 (6-14) Blood Urea Nitrogen 12 mg/dL (8-26) Creatinine 0.8 mg/dL (0.7-1.3) Estimated GFR (Cockcroft-Gault) 108.8 Glucose Level 96 mg/dL (70-99) Calcium Level 9.0 mg/dL (8.5-10.1) Medications Active Scripts Medications Dose Route/Sig Max Daily Dose Days Date Category Dilaudid (Hydromorphone Hcl) 4 Mg Tablet 4 Mg PO PRN Q6HRS PRN 07/22/18 Reported Alprazolam 2 Mg Tablet 2 Mg PO PRN BID PRN 07/22/18 Reported Aspirin 81 Mg Tab.chew 1 Tab PO DAILY 06/07/18 Reported Metoprolol Tartrate 50 Mg Tablet 1 Tab PO BID 06/07/18 Reported Impression . IMPRESSION: 1. Acute respiratory failure secondary to pneumonia, ?pulmonary embolism, ?congestive heart failure. 2. Abnormal chest x-ray and CT of the chest. 3. Pneumonia. 4. Leukocytosis. 5. Obstructive sleep apnea-hypopnea syndrome. Plan . RECOMMENDATION: 1. Titrate FiO2 to keep O2 saturation 92%. 2. Bronchodilator. 3. Continue Levaquin for total of 7 days 4. Follow up blood cultures. 5. Urine for legionella and Strep pneumoniae antigen, pending. 6. Protonix for stress ulcer prophylaxis. 7. Continue heparin. 8. await V/Q scan. 9. I have discussed obstructive sleep apnea-hypopnea syndrome, the importance of diagnosis and treatment, if untreated increased cardiovascular and [employer] morbidity and mortality. I do recommend a sleep study as an outpatient. 10. Echocardiogram. discussed w rn, pt DELILAH SIN MD Jul 23, 2018 09:35
[2018-07-23 11:00] VITALS: BP 169/79
[2018-07-23] MEDS: HEPARIN 25,000UTS/500ML PREMIX 500 ML IV PRN (12:22)
--- NOTE | 2018-07-23 13:43 | RAD ---
Exam: Ventilation/perfusion lung scan. Date: 07/23/18 Indication: Pneumonia, shortness of breath Technique: 11 mCi of technetium Xe was administered ventilation images were acquired in inspiration, equilibrium and washout phase. 6.0 mCi of Tc 99m MAA was injected and perfusion images were acquired. Comparison chest x-ray dated 07/22/17 Findings: Symmetrical uptake seen in both lungs in both ventilation and perfusion images. No matched or mismatched perfusion abnormality seen. Impression: According to the PIOPED criteria, the study is negative for pulmonary embolism. Electronically signed by: Nasreen Thompson MD (07/23/2018 1:39 PM) [facility]
--- NOTE | 2018-07-23 14:57 | PDOC3 ---
Discharge Summary IPC Final Diagnosis Problems Medical Problems: (1) Hypoxia Status: Acute (2) Multifocal pneumonia Status: Acute (3) Pulmonary embolism Status: Acute (4) Respiratory acidosis Status: Acute Brief Hospital Course Mr. Kinney is a 38 old F who presented with: sob, acute resp failure, bl HCAP h/o toxic encephalopathy with drug over dose, on dilaudid and ativan h/o resp failure with meds overdose, with benzo, pain meds and depression meds chronic back pain with h/o sx ADHD H/O VA and cardiac arrest with resp failure and meds overdose h/o kidney stone mild dementia with memory loss rt groin cellulitis/abscess s/p i and d 06/07 with packing, still not healed opiods dependence plan: pulm consulted, VQ scan negative, CT PE negative heparin started buyt dc'ed upon dc Levaquin x 7 days Duoneb, albuterol prn, cough meds Metoprolol, resume asa given now off heparin drip pt on high dose Dilaudid and Xanax at home - no RX written upon dc Patient History: FH: Parkinson's disease 33 FATHER FH: bladder cancer FH: lung cancer mother parents FH: thyroid disease mother parents Family history: Autoimmune disease (situation) 32 MOTHER Family history: Diabetes mellitus (situation) 32 MOTHER Myasthenia gravis CONDITION AT DISCHARGE: Comment Scheduled Aspirin (Aspirin), 1 TAB PO DAILY, (Reported) Metoprolol Tartrate (Metoprolol Tartrate), 1 TAB PO BID, (Reported) Scheduled PRN Alprazolam (Alprazolam), 2 MG PO PRN BID PRN for ANXIETY / AGITATION, (Reported) Hydromorphone Hcl (Dilaudid), 4 MG PO PRN Q6HRS PRN for PAIN, (Reported) Discontinued Medications Ciprofloxacin Hcl (Cipro), 500 MG PO BID Discontinued Reason: COMPLETED Doxycycline Hyclate (Doxycycline Hyclate), 100 MG PO BID Discontinued Reason: COMPLETED ABDELRAHMAN JOSEPH MD Jul 23, 2018 14:57
[2018-07-23] MEDS ORDERED: LEVO750T31 PO (14:59)
--- NOTE | 2018-07-23 17:19 | NUR ---
Discharge Note: ANGEL PARISI Discharge instructions and discharge home medications reviewed with Patient and a copy given. All questions have been answered and understanding verbalized. The following instructions and handouts were given: Worsening symptoms, pneumonia education, medications, and activity. Discontinued lines and drains: Two IV's were discontined LEJ and LAC, dressing changed on wound to right groin. Patient discharged to home with mother via personal vehicle.
[2018-07-23] MEDS ORDERED: LACTOBACILLUS RHAMNOSUS GG 1 CAPSULE. PO SCH (21:00)
== END 2018-07-23 17:24 | disposition home or self-care (01) | DRG 871 ==
LOC: ER 13:02 → 1 WEST ICU 16:35 → 6 SOUTH 07-22 18:03
PROVIDERS: ADMIT Internal Medicine; ATTEND Internal Medicine
DX: A41.9 Sepsis, unspecified organism (principal); J18.9 Pneumonia, unspecified organism; I26.99 Other pulmonary embolism without acute cor pulmonale; J96.01 Acute respiratory failure with hypoxia; E87.2 Acidosis; L02.214 Cutaneous abscess of groin; L03.314 Cellulitis of groin; F11.20 Opioid dependence, uncomplicated; M54.9 Dorsalgia, unspecified; G89.29 Other chronic pain; I50.9 Heart failure, unspecified; I11.0 Hypertensive heart disease with heart failure; F41.9 Anxiety disorder, unspecified; F90.9 Attention-deficit hyperactivity disorder, unspecified type; F03.90 Unspecified dementia, unspecified severity, without behavioral disturbance, psychotic disturbance, mood disturbance, and anxiety; G47.33 Obstructive sleep apnea (adult) (pediatric); Y95 Nosocomial condition; F32.9 Major depressive disorder, single episode, unspecified; Z80.1 Family history of malignant neoplasm of trachea, bronchus and lung; Z82.49 Family history of ischemic heart disease and other diseases of the circulatory system; Z80.52 Family history of malignant neoplasm of bladder; Z88.6 Allergy status to analgesic agent; Z88.0 Allergy status to penicillin; Z88.8 Allergy status to other drugs, medicaments and biological substances; Z80.8 Family history of malignant neoplasm of other organs or systems; I25.2 Old myocardial infarction; Z82.0 Family history of epilepsy and other diseases of the nervous system; Z86.73 Personal history of transient ischemic attack (TIA), and cerebral infarction without residual deficits; Z87.442 Personal history of urinary calculi; Z86.74 Personal history of sudden cardiac arrest; Z83.3 Family history of diabetes mellitus; Z90.49 Acquired absence of other specified parts of digestive tract
CPT/HCPCS: 36415; 36600; 71045; 71275; 78582; 80048; 82805; 83605; 83880; 84145; 84484; 85007; 85025; 85520; 87040; 87449; 87641; 87804; 93005; 93970; 94640; 96365; 96366; 96368; 96374; A9540; A9558; J1956; J2270; J7613; J7620; Q9967; 99285-25; G0378

== ENCOUNTER 2018-08-28 09:46 | Inpatient (IN) | payer OTHER ==
[~2018-08-28] VITALS: Ht 182.9 cm; Wt 128.5 kg
[~2018-08-28 09:46] MED LIST changes: +LEVO750T31 PO; +PANT40TA5 PO; -PANT40TA77 PO
--- NOTE | 2018-08-28 10:29 | PHYS DOC ---
Past Medical History Past Medical History: Anxiety, Kidney Stone, Pneumonia, Other Additional Past Medical Histor: chronic back pain, degenerative disc disease, Past Surgical History: Appendectomy, Cholecystectomy, Tonsillectomy, Other Additional Past Surgical Histo: back surgery x 4 Alcohol Use: None Drug Use: None Adult General Chief Complaint Chief Complaint: DIZZY/LIGHT HEADED HPI HPI 38-year-old male presents to ER via POV with complaints of intermittent dizziness and multiple falls yest. Patient reports he did fall backwards and strike the back of his head as well as his mid to lower back. Patient reports it was carpeted floor he fell onto. Patient's mom Chelsie is at bedside and reports patient's had stated patient was unresponsive for a brief moment and then came to and was acting appropriate. Patient on arrival has O2 saturation on room air of 88% reporting he does have oxygen he uses at home as he has been having moments of low oxygen. He reports he has had flu like illness over the past week- his and dgtr are also ill with similar sxs. Pt denies CP, abd pain, or V/D episodes. Pt reports he has had intermittent nausea prior to and following fall. Pt reports he has had dysuria- reporting he has had less fld intake. Pt reports he has been having dizzy episodes intermittently which has been causing him to fall- denying any other sxs prior to falls. Patient states he had not been using his oxygen at home. Patient takes 4 mg Dilaudid 4 times a day and 2 mg Xanax twice a day for chronic pain. Pt's mother reports the amt of pain medication is less than what pt had been on in the past- she also reports pt had been inpt in [place] for addiction issues. On arrival pt is pale and at times appears to fall asleep during discussion. O2 was applied via NC and O2 sat 97% and pt's facial color improved with pink skin tone. Review of Systems Review of Systems Constitutional: Denies fever or chills [] Eyes: Denies redness, or eye pain. Reports vision HENT: Denies sore throat. Reports sinus congestion. Respiratory: Denies cough or shortness of breath [] Cardiovascular: No additional information not addressed in HPI [] GI: Denies abdominal pain, vomiting, bloody stools or diarrhea. Reports intermittent nausea : Denies hematuria. Reports dysurianies neck pain or joint pain. Musculoskeletal: Reports chronic mid to lower back pain- with increase in lower back pain. Reports neck pain Integument: Denies rash or skin lesions [] Neurologic: Denies headache, focal weakness or sensory changes. Reports intermi ttent dizziness- with episodes prior to his falls Endocrine: Denies polyuria or polydipsia [] All other systems were reviewed and found to be within normal limits, except as documented in this note. Current Medications Current Medications Current Medications Medications (Trade) Dose Ordered Sig/Malcolm Start Time Stop Time Status Last Admin Dose Admin Aspirin (Children'S Aspirin) 324 mg 1X ONCE 08/28/18 13:45 08/28/18 14:01 DC 08/28/18 14:04 324 MG Info (CONTRAST GIVEN -- Rx MONITORING) 1 each PRN DAILY PRN 08/28/18 13:30 08/30/18 13:29 DC Iohexol (Omnipaque 350 Mg/ml) 100 ml 1X ONCE 08/28/18 13:30 08/28/18 13:31 DC 08/28/18 13:30 100 ML Sodium Chloride 1,000 ml @ 1,000 mls/hr 1X ONCE 08/28/18 10:30 08/28/18 11:29 DC 08/28/18 10:30 1,000 MLS/HR Allergies Allergies Physical Exam Physical Exam Constitutional: Well developed, well nourished, no acute distress, pale/dusky facial color- slugglish speech. Lethargic during exam- would doze off during questions/exam and have be woke multiple times. Pt would wake to voice command- was answering questions appropr. Multiple times during exam requested pain medication HENT: Normocephalic, atraumatic, bilateral ears normal, mucous membranes pale/dry, no oral injury, nose normal. [] Eyes: 2mm PERRLA- sluggish, EOMI, conjunctiva normal, no discharge. [] Neck: Normal range of motion, tender in lateral sides of neck- no crepitus/gross adenopathy- tender mid line cspine- no palp. deformity/swelling, supple, no stridor. Trachea midline. Pt was placed in CCollar during initial exam with mid line cervical tenderness Cardiovascular: Tachycardic heart rate regular rhythm, no murmur [] Lungs & Thorax: Bilateral breath sounds clear to auscultation- diminished in bases. During initial exam pt had shallow breathing with delayed cap. refill bilat. upper extremities- facial color was pale/dusky. O2 was applied via NC at 3L and during exam could see improvement in pt's appearance. Abdomen: Hypoactive bowel sounds normal, soft/obese, no tenderness/rigidity, no masses, no pulsatile masses. [] Skin: Warm, dry, no erythema, no rash. [] Back: Tender mid thoracic to lumbar spine- no swelling/deformity palp., no CVA tenderness. Pt reports chronic mid to lower back pain- on exam palp. of lower lumbar pt reports increase from his chronic pain Extremities: Pelvis stable/nontender. No tenderness, no cyanosis, no clubbing, ROM intact, 1+ nonpitting edema bilat. Neurologic: Alert and oriented X 3, normal motor function- slow purposeful movements, normal sensory function, no focal deficits noted. [] Psychologic: Affect normal, judgement normal, mood normal. [] Current Patient Data Vital Signs Lab Values Laboratory Tests Test 08/28/18 12:05 White Blood Count 8.0 x10^3/uL (4.0-11.0) Red Blood Count 4.62 x10^6/uL (4.30-5.70) Hemoglobin 12.5 g/dL (13.0-17.5) L Hematocrit 39.1 % (39.0-53.0) Mean Corpuscular Volume 85 fL (79-100) Mean Corpuscular Hemoglobin 27 pg (25-35) Mean Corpuscular Hemoglobin Concent 32 g/dL (31-37) Red Cell Distribution Width 19.3 % (11.5-14.5) H Platelet Count 262 x10^3/uL (140-400) Neutrophils (%) (Auto) 73 % (31-73) Lymphocytes (%) (Auto) 19 % (24-48) L Monocytes (%) (Auto) 8 % (0-9) Eosinophils (%) (Auto) 0 % (0-3) Basophils (%) (Auto) 1 % (0-3) Neutrophils # (Auto) 5.8 x10^3uL (1.8-7.7) Lymphocytes # (Auto) 1.5 x10^3/uL (1.0-4.8) Monocytes # (Auto) 0.6 x10^3/uL (0.0-1.1) Eosinophils # (Auto) 0.0 x10^3/uL (0.0-0.7) Basophils # (Auto) 0.0 x10^3/uL (0.0-0.2) Sodium Level 142 mmol/L (136-145) Potassium Level 4.3 mmol/L (3.5-5.1) Chloride Level 101 mmol/L (98-107) Carbon Dioxide Level 34 mmol/L (21-32) H Anion Gap 7 (6-14) Blood Urea Nitrogen 5 mg/dL (8-26) L Creatinine 0.8 mg/dL (0.7-1.3) Estimated GFR (Cockcroft-Gault) 108.8 BUN/Creatinine Ratio 6 (6-20) Glucose Level 103 mg/dL (70-99) H Lactic Acid Level 1.5 mmol/L (0.4-2.0) Calcium Level 8.1 mg/dL (8.5-10.1) L Magnesium Level 1.7 mg/dL (1.8-2.4) L Total Bilirubin 0.6 mg/dL (0.2-1.0) Aspartate Amino Transferase (AST) 20 U/L (15-37) Alanine Aminotransferase (ALT) 23 U/L (16-63) Alkaline Phosphatase 75 U/L (46-116) Troponin I Quantitative 0.146 ng/mL (0.000-0.055) Total Protein 7.0 g/dL (6.4-8.2) Albumin 3.6 g/dL (3.4-5.0) Albumin/Globulin Ratio 1.1 (1.0-1.7) Laboratory Tests 08/28/18 12:05 Laboratory Tests 08/28/18 12:05 EKG EKG EKG obtained 08/28/[address] Jeffery Sinus tachycardia Rate 106 Radiology/Procedures Radiology/Procedures PROCEDURE: CT THORACIC SPINE WO CONTRAST EXAM: Thoracic spine CT without contrast. HISTORY: Fall. TECHNIQUE: Computed tomographic images of the lumbar spine were obtained without contrast. Multiplanar reformatting was performed. *One or more of the following individualized dose reduction techniques were utilized for this examination: 1. Automated exposure control. 2. Adjustment of the mA and/or kV according to patient size. 3. Use of iterative reconstruction technique. COMPARISON: MRI dated 05/07/2018. FINDINGS: There are chronic mild compression deformities at T7 and T8. There are superimposed superior endplate Schmorl's nodes space levels. There are chronic mild superior endplate depressions with associated Schmorl's nodes at T5 and T6, and to a lesser extent, T4. There is degenerative endplate remodeling and Schmorl's node formation at additional thoracic levels. There is minimal thoracic scoliosis. There are hypoplastic T12 ribs. There is no severe thoracic foraminal or central canal stenosis. There is no suspicious lytic or sclerotic osseous lesion. There is diffuse posterior dependent nodular and groundglass opacity throughout the bilateral lower lobes. There is no significant pleural effusion. There is no pneumothorax. IMPRESSION: 1. No acute osseous finding or severe thoracic foraminal or central canal stenosis. 2. Chronic mild compression deformities and superior endplate depressions with superimposed Schmorl's nodes at the mid thoracic levels, stable compared to the prior MRI. 3. Mild multilevel degenerative change. 4. Diffuse posterior predominant groundglass and nodular opacities throughout the lower lobes. The imaging appearance favors infiltrate rather than atelectasis. Electronically signed by: Katelynn Petty MD (08/28/2018 12:05 PM) [place] [id number] DICTATED and SIGNED BY: KATELYNN PETTY MD DATE: 08/28/18 1201 PROCEDURE: CT HEAD AND CERVICAL SPINE WO CT head and cervical spine without contrast History: Fall last night, hit back of head, neck pain Technique: Noncontrast CT imaging was performed of the head and cervical spine. Multiplanar reconstruction images are submitted. Exposure: One or more of the following individualized dose reduction techniques were utilized for this examination: 1. Automated exposure control 2. Adjustment of the mA and/or kV according to patient size 3. Use of iterative reconstruction technique. Head CT Comparison: None Findings: No acute extra-axial or parenchymal hemorrhage is identified. There is no significant intra-axial mass effect, midline shift, or extra-axial fluid collection. The allen-white differentiation of the major vascular territories is preserved. The ventricles, sulci, and cisterns are within normal limits in size and configuration. Mastoid air cells are aerated. There is a small right maxillary sinus mucous retention cyst. There have been ethmoidectomies bilaterally.There is no significant focal calvarial abnormality. Impression: 1. No acute intracranial abnormality is identified. Cervical spine CT Comparison: None Findings: There is motion degradation. No convincing acute cervical spine fracture is identified. There is multilevel cervical facet degenerative change. Cervical vertebral body stature and AP alignment are maintained. Intervertebral disc spaces are adequate. Impression: 1. No acute cervical spine fracture is identified. Electronically signed by: Anju Mitchell MD (08/28/2018 11:48 AM) [id number] DICTATED and SIGNED BY: ANJU MITCHELL MD DATE: 08/28/18 1143 PROCEDURE: CHEST AP ONLY EXAM: Chest, single view. HISTORY: Fall. COMPARISON: 07/21/2018. FINDINGS: A frontal view the chest obtained. There is mild diffuse increased interstitial opacity. There is no consolidation, pleural effusion or pneumothorax. There is a prominent cardiac silhouette, a component of which is due to portable technique. IMPRESSION: 1. Diffuse increased interstitial opacity. This is similar compared to the prior study and likely due to interstitial infiltrate. 2. Stable mild enlargement of the cardiac silhouette. Electronically signed by: Katelynn Petty MD (08/28/2018 10:41 AM) [id number] DICTATED and SIGNED BY: KATELYNN PETTY MD DATE: 08/28/18 1040 PROCEDURE: CT LUMBAR SPINE WO CONTRAST CT study of the lumbar spine without contrast Clinical indications: Fell last night. Abrasion mid thoracic area. Tender midlumbar area. TECHNIQUE: Noncontrast CT scanning of the lumbar spine was performed. Multiplanar 2-D reconstructions were generated. PQRS compliance Statement One or more of the following individualized dose reduction techniques were utilized for this study: 1. Automated exposure control 2. Adjustment of the mA and/or kV according to patient size 3. Use of iterative reconstruction technique FINDINGS: Lumbar fusion is seen from L3 through L5. Normal alignment between L3 and L4 and L5 is seen. Small midline laminectomy of L3 is seen. Large decompressive laminectomy of L4 is seen. There is mild retrolisthesis of L2 on L3. Minimal retrolisthesis of L5-S1 is seen. There is degenerative facet arthropathy at L2-3 and L3-4 and L4-5 and L5-S1. No anterolisthesis is seen. No compression fracture or discitis or lytic process is evident. The transverse processes are intact. IMPRESSION: No acute fracture. Electronically signed by: Jonathon Luevano MD (08/28/2018 12:33 PM) [facility] DICTATED and SIGNED BY: JONATHON LUEVANO MD DATE: 08/28/18 1224 Course & Med Decision Making Course & Med Decision Making Pertinent Labs and Imaging studies reviewed. (See chart for details) Pt was evaluated in ER for falls and dizziness. Pt on arrival was hypoxic and had decreased LOC- CCollar had been placed during initial exam d/t c/o neck pain. Pt also had O2 applied and IV flds started- which improved his appearance and his LOC. Pt has chronic pain issues and reported to be taking 16mg Dilaudid and 4mg Xanax daily- pt multiple times during exam/ER stay requested pain medications although he was drowsy/sleeping and in no visible distress. Pt's mother was at bedside who reported pt had been inpt prior for addiction issues- indepth conversation was had with pt and his mother regarding decreased LOC, falls, and hypoxic state being d/t excessive sedative medications. Pt had CT imaging of head/cspine/thoracic and lumbar spine- no acute findings and so C Collar was removed during discussion of test results. EKG with no acute ST elevation/STEMI- troponin was elevated at 0.146 with pt denying any CP/palpitations. Order placed for aspirin 324mg PO. Admission was discussed with pt and his mother for further monitoring and serial cardiac enzymes- pt is a greeable with admit plan. Pt does appear more alert during discussion although still has episodes where during discussion he appears to doze off. He remains A&Ox3 and is nontoxic in appearance and in no distress during discussion. Will admit to hospitalist services for further care/monitoring. Dragon Disclaimer Dragon Disclaimer This electronic medical record was generated, in whole or in part, using a voice recognition dictation system. Departure Departure Referrals: NO PCP (PCP) ROSALINDA FRIED APRN Aug 28, 2018 10:29
[2018-08-28] MEDS ORDERED: IV NORMAL SALINE 1000ML BAG 1,000 ML IV ONE (10:30)
--- NOTE | 2018-08-28 10:44 | RAD ---
EXAM: Chest, single view. HISTORY: Fall. COMPARISON: 07/21/2018. FINDINGS: A frontal view the chest obtained. There is mild diffuse increased interstitial opacity. There is no consolidation, pleural effusion or pneumothorax. There is a prominent cardiac silhouette, a component of which is due to portable technique. IMPRESSION: 1. Diffuse increased interstitial opacity. This is similar compared to the prior study and likely due to interstitial infiltrate. 2. Stable mild enlargement of the cardiac silhouette. Electronically signed by: Katelynn Byrd MD (08/28/2018 10:41 AM) [place] [id number]
--- NOTE | 2018-08-28 11:51 | RAD ---
CT head and cervical spine without contrast History: Fall last night, hit back of head, neck pain Technique: Noncontrast CT imaging was performed of the head and cervical spine. Multiplanar reconstruction images are submitted. Exposure: One or more of the following individualized dose reduction techniques were utilized for this examination: 1. Automated exposure control 2. Adjustment of the mA and/or kV according to patient size 3. Use of iterative reconstruction technique. Head CT Comparison: None Findings: No acute extra-axial or parenchymal hemorrhage is identified. There is no significant intra-axial mass effect, midline shift, or extra-axial fluid collection. The allen-white differentiation of the major vascular territories is preserved. The ventricles, sulci, and cisterns are within normal limits in size and configuration. Mastoid air cells are aerated. There is a small right maxillary sinus mucous retention cyst. There have been ethmoidectomies bilaterally.There is no significant focal calvarial abnormality. Impression: 1. No acute intracranial abnormality is identified. Cervical spine CT Comparison: None Findings: There is motion degradation. No convincing acute cervical spine fracture is identified. There is multilevel cervical facet degenerative change. Cervical vertebral body stature and AP alignment are maintained. Intervertebral disc spaces are adequate. Impression: 1. No acute cervical spine fracture is identified. Electronically signed by: Alhaji Bourne MD (08/28/2018 11:48 AM) [id number]
--- NOTE | 2018-08-28 12:08 | RAD ---
EXAM: Thoracic spine CT without contrast. HISTORY: Fall. TECHNIQUE: Computed tomographic images of the lumbar spine were obtained without contrast. Multiplanar reformatting was performed. *One or more of the following individualized dose reduction techniques were utilized for this examination: 1. Automated exposure control. 2. Adjustment of the mA and/or kV according to patient size. 3. Use of iterative reconstruction technique. COMPARISON: MRI dated 05/07/2018. FINDINGS: There are chronic mild compression deformities at T7 and T8. There are superimposed superior endplate Schmorl's nodes space levels. There are chronic mild superior endplate depressions with associated Schmorl's nodes at T5 and T6, and to a lesser extent, T4. There is degenerative endplate remodeling and Schmorl's node formation at additional thoracic levels. There is minimal thoracic scoliosis. There are hypoplastic T12 ribs. There is no severe thoracic foraminal or central canal stenosis. There is no suspicious lytic or sclerotic osseous lesion. There is diffuse posterior dependent nodular and groundglass opacity throughout the bilateral lower lobes. There is no significant pleural effusion. There is no pneumothorax. IMPRESSION: 1. No acute osseous finding or severe thoracic foraminal or central canal stenosis. 2. Chronic mild compression deformities and superior endplate depressions with superimposed Schmorl's nodes at the mid thoracic levels, stable compared to the prior MRI. 3. Mild multilevel degenerative change. 4. Diffuse posterior predominant groundglass and nodular opacities throughout the lower lobes. The imaging appearance favors infiltrate rather than atelectasis. Electronically signed by: Katelynn Byrd MD (08/28/2018 12:05 PM) [place] [id number]
[2018-08-28 12:16] LABS: BASO % 1 % (0-3); EOS % 0 % (0-3); HEMATOCRIT 39.1 % (39.0-53.0); HEMOGLOBIN 12.5 g/dL (13.0-17.5); LYMPH # 1.5 x10^3/uL (1.0-4.8); LYMPH % 19 % (24-48); MEAN CORPUSCULAR HEMOGLOBIN 27 pg (25-35); MEAN CORPUSCULAR HGB CONC 32 g/dL (31-37); MEAN CORPUSCULAR VOLUME 85 fL (79-100); MONO # 0.6 x10^3/uL (0.0-1.1); MONO % 8 % (0-9); NEUT # 5.8 x10^3uL (1.8-7.7); NEUT % 73 % (31-73); PLATELET COUNT 262 x10^3/uL (140-400); RED BLOOD COUNT 4.62 x10^6/uL (4.30-5.70); RED CELL DISTRIBUTION WIDTH 19.3 % (11.5-14.5)
[2018-08-28 12:31] LABS: CALCIUM 8.1 mg/dL (8.5-10.1); CREATININE 0.8 mg/dL (0.7-1.3); GFR 108.8; POTASSIUM 4.3 mmol/L (3.5-5.1)
--- NOTE | 2018-08-28 12:36 | RAD ---
CT study of the lumbar spine without contrast Clinical indications: Fell last night. Abrasion mid thoracic area. Tender midlumbar area. TECHNIQUE: Noncontrast CT scanning of the lumbar spine was performed. Multiplanar 2-D reconstructions were generated. PQRS compliance Statement One or more of the following individualized dose reduction techniques were utilized for this study: 1. Automated exposure control 2. Adjustment of the mA and/or kV according to patient size 3. Use of iterative reconstruction technique FINDINGS: Lumbar fusion is seen from L3 through L5. Normal alignment between L3 and L4 and L5 is seen. Small midline laminectomy of L3 is seen. Large decompressive laminectomy of L4 is seen. There is mild retrolisthesis of L2 on L3. Minimal retrolisthesis of L5-S1 is seen. There is degenerative facet arthropathy at L2-3 and L3-4 and L4-5 and L5-S1. No anterolisthesis is seen. No compression fracture or discitis or lytic process is evident. The transverse processes are intact. IMPRESSION: No acute fracture. Electronically signed by: Tyler Luevano MD (08/28/2018 12:33 PM) [facility]
[2018-08-28 12:37] LABS: ALBUMIN 3.6 g/dL (3.4-5.0); ALBUMIN/GLOBULIN RATIO 1.1 (1.0-1.7); MAGNESIUM 1.7 mg/dL (1.8-2.4); TOTAL BILIRUBIN 0.6 mg/dL (0.2-1.0)
[2018-08-28] MEDS ORDERED: IOHEXOL 350 MG/ML 100 ML VIAL. IV ONE (13:30)
[2018-08-28] MEDS ORDERED: CONTRAST GIVEN. MC PRN (13:30)
[2018-08-28] MEDS ORDERED: ASPIRIN CHEWABLE 81 MG TABLET. PO ONE (13:45)
--- NOTE | 2018-08-28 13:55 | PDOC1 ---
History and Physical Date of Admission Date of Admission DATE: 08/28/18 TIME: 13:49 Identification/Chief Complaint Chief Complaint confusion, fall at home Source Source: Caregiver, Chart review, Patient History of Present Illness History of Present Illness 38-year-old obese male, brought in by concerned mother, he lives at home with , very narcotic dependent and tolerant on 16 mg of Dilaudid every day along with some other pain medicines which mother claims they keep type locked in a box/safe. Fall, some delirium, past 72 hours. Poor by mouth. He fell 3 times in the last 24 hours and hit his head and back and so far no injuries there. He has had 4-5 back surgeries with history of staph infection in one of his discs hence cannot have back injections. In any case labs unremarkable except for troponin of 0.146 and is admitted for rule out PE because of low desaturations likely from narcotics. ER Did not have to do anything but just oxygenation and IV fluids and he woke up. NO narcan needed ER mid-level provider has discussed no narcotics because of some hypoxia and delirium/very sleepy when he arrived at ER. Somehow, I might have difficulty doing this because he is now agreeable to picc as he is a hard stick. Need picc to trend cardiac enzymes, discussed with ballistics laboratory gunsmith unable to get blood and has tried multiple times by [address] lumbar spine shows the following no acute pathology but old stuff: : Lumbar fusion is seen from L3 through L5. Normal alignment between L3 and L4 and L5 is seen. Small midline laminectomy of L3 is seen. Large decompressive laminectomy of L4 is seen. There is mild retrolisthesis of L2 on L3. Minimal retrolisthesis of L5-S1 is seen. There is degenerative facet arthropathy at L2-3 and L3-4 and L4-5 and L5-S1. No anterolisthesis is seen. No compression fracture or discitis or lytic process is evident. The transverse processes are intact. Past Medical History Cardiovascular: HTN Pulmonary: Other CENTRAL NERVOUS SYSTEM: TIA Psych: Anxiety, Addictions, Other Musculoskeletal: low back pain Past Surgical History Past Surgical History: Appendectomy, Cholecystectomy, Other (mult back sx x 4-5 ) Family History Family History: Heart Disease Social History Smoke: No ALCOHOL: none Drugs: None, Other Current Medications Current Medications Current Medications Sodium Chloride 1,000 ml @ 1,000 mls/hr 1X ONCE IV Last administered on at 10:30; Start 08/28/18 at 10:30; Stop 08/28/18 at 11:29; Status DC Iohexol (Omnipaque 350 Mg/ml) 100 ml 1X ONCE IV ; Start 08/28/18 at 13:30; Stop 08/28/18 at 13:31; Status DC Info (CONTRAST GIVEN -- Rx MONITORING) 1 each PRN DAILY PRN MC SEE COMMENTS; Start 08/28/18 at 13:30; Stop 08/30/18 at 13:29 Active Scripts Active Levaquin (Levofloxacin) 750 Mg Tablet 1 Tab PO DAILY Reported Dilaudid (Hydromorphone Hcl) 4 Mg Tablet 4 Mg PO PRN Q6HRS PRN Alprazolam 2 Mg Tablet 2 Mg PO PRN BID PRN Aspirin 81 Mg Tab.chew 1 Tab PO DAILY Metoprolol Tartrate 50 Mg Tablet 1 Tab PO BID Allergies Allergies: Coded Allergies: Penicillins (Verified Allergy, Intermediate, Hives, 06/26/18) ketorolac (Verified Allergy, Intermediate, 06/26/18) tramadol (Verified Allergy, Intermediate, 06/26/18) ROS Review of System Back pain, migraine, weak, possibly constipated even Physical Exam General: Oriented X3, Cooperative, No acute distress HEENT: Atraumatic, PERRLA Lungs: Clear to auscultation, Normal air movement Heart: S1S2, RRR, no thrills, no rubs, no gallops, no murmurs Cardiovascular: S1, S2 Abdomen: Normal bowel sounds, Soft, No tenderness, No hepatosplenomegaly, No masses, Other (obese) Male Genitals Exam: normal genitalia, normal prostate Rectal Exam: not examined Extremities: No clubbing, No cyanosis, No edema, Normal pulses, No tenderness/ swelling Skin: No rashes, No breakdown, No significant lesion Neuro: Normal gait, Normal speech, Strength at 5/5 X4 ext, Normal tone, Sensation intact, Cranial nerves 3-12 NL, Reflexes 2+ Psych/Mental Status: Mental status NL, Mood NL Vitals Vitals Vital Signs Date Time Temp Pulse Resp B/P (MAP) Pulse Ox O2 Delivery O2 Flow Rate FiO2 08/28/18 11:30 99.5 105 15 129/82 (98) 91 Nasal Cannula 3.0 99.5 Labs Labs Laboratory Tests Test 08/28/18 12:05 White Blood Count 8.0 x10^3/uL (4.0-11.0) Red Blood Count 4.62 x10^6/uL (4.30-5.70) Hemoglobin 12.5 g/dL (13.0-17.5) Hematocrit 39.1 % (39.0-53.0) Mean Corpuscular Volume 85 fL (79-100) Mean Corpuscular Hemoglobin 27 pg (25-35) Mean Corpuscular Hemoglobin Concent 32 g/dL (31-37) Red Cell Distribution Width 19.3 % (11.5-14.5) Platelet Count 262 x10^3/uL (140-400) Neutrophils (%) (Auto) 73 % (31-73) Lymphocytes (%) (Auto) 19 % (24-48) Monocytes (%) (Auto) 8 % (0-9) Eosinophils (%) (Auto) 0 % (0-3) Basophils (%) (Auto) 1 % (0-3) Neutrophils # (Auto) 5.8 x10^3uL (1.8-7.7) Lymphocytes # (Auto) 1.5 x10^3/uL (1.0-4.8) Monocytes # (Auto) 0.6 x10^3/uL (0.0-1.1) Eosinophils # (Auto) 0.0 x10^3/uL (0.0-0.7) Basophils # (Auto) 0.0 x10^3/uL (0.0-0.2) Sodium Level 142 mmol/L (136-145) Potassium Level 4.3 mmol/L (3.5-5.1) Chloride Level 101 mmol/L (98-107) Carbon Dioxide Level 34 mmol/L (21-32) Anion Gap 7 (6-14) Blood Urea Nitrogen 5 mg/dL (8-26) Creatinine 0.8 mg/dL (0.7-1.3) Estimated GFR (Cockcroft-Gault) 108.8 BUN/Creatinine Ratio 6 (6-20) Glucose Level 103 mg/dL (70-99) Lactic Acid Level 1.5 mmol/L (0.4-2.0) Calcium Level 8.1 mg/dL (8.5-10.1) Magnesium Level 1.7 mg/dL (1.8-2.4) Total Bilirubin 0.6 mg/dL (0.2-1.0) Aspartate Amino Transf (AST/SGOT) 20 U/L (15-37) Alanine Aminotransferase (ALT/SGPT) 23 U/L (16-63) Alkaline Phosphatase 75 U/L (46-116) Troponin I Quantitative 0.146 ng/mL (0.000-0.055) Total Protein 7.0 g/dL (6.4-8.2) Albumin 3.6 g/dL (3.4-5.0) Albumin/Globulin Ratio 1.1 (1.0-1.7) Laboratory Tests Test 08/28/18 12:05 White Blood Count 8.0 x10^3/uL (4.0-11.0) Red Blood Count 4.62 x10^6/uL (4.30-5.70) Hemoglobin 12.5 g/dL (13.0-17.5) Hematocrit 39.1 % (39.0-53.0) Mean Corpuscular Volume 85 fL (79-100) Mean Corpuscular Hemoglobin 27 pg (25-35) Mean Corpuscular Hemoglobin Concent 32 g/dL (31-37) Red Cell Distribution Width 19.3 % (11.5-14.5) Platelet Count 262 x10^3/uL (140-400) Neutrophils (%) (Auto) 73 % (31-73) Lymphocytes (%) (Auto) 19 % (24-48) Monocytes (%) (Auto) 8 % (0-9) Eosinophils (%) (Auto) 0 % (0-3) Basophils (%) (Auto) 1 % (0-3) Neutrophils # (Auto) 5.8 x10^3uL (1.8-7.7) Lymphocytes # (Auto) 1.5 x10^3/uL (1.0-4.8) Monocytes # (Auto) 0.6 x10^3/uL (0.0-1.1) Eosinophils # (Auto) 0.0 x10^3/uL (0.0-0.7) Basophils # (Auto) 0.0 x10^3/uL (0.0-0.2) Sodium Level 142 mmol/L (136-145) Potassium Level 4.3 mmol/L (3.5-5.1) Chloride Level 101 mmol/L (98-107) Carbon Dioxide Level 34 mmol/L (21-32) Anion Gap 7 (6-14) Blood Urea Nitrogen 5 mg/dL (8-26) Creatinine 0.8 mg/dL (0.7-1.3) Estimated GFR (Cockcroft-Gault) 108.8 BUN/Creatinine Ratio 6 (6-20) Glucose Level 103 mg/dL (70-99) Lactic Acid Level 1.5 mmol/L (0.4-2.0) Calcium Level 8.1 mg/dL (8.5-10.1) Magnesium Level 1.7 mg/dL (1.8-2.4) Total Bilirubin 0.6 mg/dL (0.2-1.0) Aspartate Amino Transf (AST/SGOT) 20 U/L (15-37) Alanine Aminotransferase (ALT/SGPT) 23 U/L (16-63) Alkaline Phosphatase 75 U/L (46-116) Troponin I Quantitative 0.146 ng/mL (0.000-0.055) Total Protein 7.0 g/dL (6.4-8.2) Albumin 3.6 g/dL (3.4-5.0) Albumin/Globulin Ratio 1.1 (1.0-1.7) VTE Prophylaxis Ordered VTE Prophylaxis Devices: Yes VTE Pharmacological Prophylaxi: Yes Assessment/Plan Assessment/Plan Hypoxia secondary to narcotic Morbid obesity BMI 38 Toxic encephalopathy in the background of narcotic dependence-chronic narc use History of back surgeries 4-5 with staph aureus in the back (cant do back injections) Disc bulges, lumbar stenosis L2-L5 Fall with no trauma to head or neck-CT head and C-spine negative Elev troponin - PLAN: OBS patient status Trend troponins Cardiology was consulted for the elevation trop CT chest rule out PE-likely hypoxia from narcotic use not from PE Resume home meds but not IV Dilaudid Narcan if needed PT OT Overall prognosis in this young gentleman is poor because of obesity, narc dependence, and sedentary lifestyle Seen at NORIS VELOZ MD Aug 28, 2018 13:55
[2018-08-28] MEDS ORDERED: ONDANSETRON PF 4 MG/2 ML VIAL. IV PRN (15:30)
[2018-08-28] MEDS ORDERED: ACETAMINOPHEN 500 MG TABLET PO PRN (15:30)
--- NOTE | 2018-08-28 15:40 | NUR ---
PICC Pre-Insertion Note- Allergies and reactions PCN, Toradol, Tramadol INR n/a BUN 5 Cr 0.8 Platelets 262 Blood culture done n/a blood culture results Order Verified yes Consent signed yes Previous PICC placement yes Past Medical/Surgical history and current diagnosis reviewed yes Patient Medical /Surgical History Related to PICC line placement None Past central line or venous access device placement Special considerations for PICC line placement None PICC placement indication Multiple/ Frequent blood draws, Poor peripheral intravenous access name of PICC Nurse Omar Melgar RN Addendum: 08/28/18 at 1633 by ROB MELGAR RN Amended: Links added.
[2018-08-28 15:57] VITALS: BP 108/71
--- NOTE | 2018-08-28 16:17 | NUR ---
PICC Insertion Note- Procedure: Following complete explanation of the PICC procedure including the indications, risks, and potential complications, informed consent was obtained. The possibility for infection was discussed along with signs, symptoms, and prevention. All the questions were answered. Written and verbal patient education was provided. Hand hygiene performed. Standardized central line checklist was utilized. The patient was placed in the supine position, the arm was prepped with chlorhexidine and patient draped with maximum sterile barrier. 2 mL 1% lidocaine was infiltrated into the skin to provide local anesthesia. A thorough assessment of right upper extremity completed. Using real-time ultrasound guidance and standardized micro puncture set, the brachial vein was punctured and a peel away sheath was placed using the modified Seldinger technique. A tip location device was used to ensure adequate catheter placement. The catheter was secured using a securement device and an antimicrobial patch was applied directly on the insertion site followed by a transparent dressing. All ports withdraw blood and flush without resistance. Patient tolerated the procedure without apparent complication(s). Single Lumen Power PICC placement successful and uncomplicated. Placement verified by EKG tip confirmation system and/or chest x-ray. Tip located in the CAJ/SVC. Complications: none Catheter trimmed at 48cm with 0 cm visible at insertion site.
[2018-08-28] MEDS: ALPRAZolam 1 MG TABLET PO PRN ×2 (16:59→23:42)
[2018-08-28] MEDS: HYDROmorphone 4 MG TABLET PO PRN ×2 (17:00→23:42)
--- NOTE | 2018-08-28 17:48 | NUR ---
The patient, ANGEL PARISI, 38 y/o, M admitted by NORIS MCKEON MD, was given written information regarding hospital policies, unit procedures and contact persons. Valuables were checked.
[2018-08-28 19:35] VITALS: BP 127/77
[2018-08-28] MEDS: METOPROLOL TART IMMED RELEASE 50 MG TABLET. PO SCH (21:50)
[2018-08-28 23:10] VITALS: BP 125/85
[2018-08-29 03:35] VITALS: BP 114/80
[2018-08-29] MEDS: HYDROmorphone 4 MG TABLET PO PRN ×4 (06:16→20:37)
[2018-08-29 07:00] VITALS: BP 117/75
[2018-08-29] MEDS: ALPRAZolam 1 MG TABLET PO PRN ×2 (08:37→20:36)
--- NOTE | 2018-08-29 09:11 | NUR ---
PT OFF UNIT TO CT AND ECHO.
--- NOTE | 2018-08-29 09:41 | EKG ---
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
--- NOTE | 2018-08-29 09:53 | RAD ---
Chest CTA History: Elevated troponin, dizziness Technique: After bolus of intravenous contrast, CT imaging was performed of the chest. Multiplanar reconstruction images to include MIP reconstruction images are submitted. Exposure: One or more of the following individualized dose reduction techniques were utilized for this examination: 1. Automated exposure control 2. Adjustment of the mA and/or kV according to patient size 3. Use of iterative reconstruction technique. Comparison: July 21, 2018 Findings: [ ] There is some motion degradation. No convincing pulmonary embolism is identified. There are persistent areas of scattered somewhat nodular appearing infiltrate of the left lower lobe, more nodular appearance of the superior left lower lobe than previously. Previously seen left upper lobe infiltrate has mostly resolved. There is groundglass infiltrate of the right lower lobe, superimposed somewhat nodular appearing density greater than previously. There is no pneumothorax. There is no pleural or pericardial effusion. Heart is enlarged. There are again left hilar nodes, largest individual node about 1 cm short axis dimension, similar. There is also right hilar lymphadenopathy, dominant node medial to the right lower lobe bronchus about 1.3 cm short axis dimension somewhat larger as previously about 1 cm. There are also again mediastinal nodes, largest about 1 cm short axis dimension right paratracheal region fairly similar. There again may be hepatic steatosis. There is right upper extremity PICC. Impression: 1. No convincing pulmonary embolism is identified. Heart is enlarged. There are again areas of groundglass infiltrate bilaterally although now more nodular appearing foci of the lower lobes bilaterally, interval decreased left upper lobe infiltrate. Nodular foci of infiltrative density could be on infectious basis unless there is suspicion for neoplastic or inflammatory etiology. There is persistent nonspecific hilar lymphadenopathy, somewhat increased on the right. Mediastinal nodes are fairly similar. Electronically signed by: Alhaji Bourne MD (08/29/2018 9:50 AM) [facility] [id number]
[2018-08-29 10:26] LABS: CALCIUM 8.4 mg/dL (8.5-10.1); CREATININE 0.7 mg/dL (0.7-1.3); GFR 126.9; POTASSIUM 4.1 mmol/L (3.5-5.1)
[2018-08-29] MEDS: METOPROLOL TART IMMED RELEASE 50 MG TABLET. PO SCH ×2 (12:23→20:36)
[2018-08-29] MEDS: ASPIRIN CHEWABLE 81 MG TABLET. PO SCH (12:23)
--- NOTE | 2018-08-29 12:28 | PDOC2 ---
CARDIAC CONSULT DATE OF CONSULT Date of Consult DATE: 08/29/18 TIME: 12:13 REASON FOR CONSULT Reason for Consult: Troponin elevation REFERRING PHYSICIAN Referring Physician: Mohinder SOURCE Source: Chart review, Patient HISTORY OF PRESENT ILLNESS HISTORY OF PRESENT ILLNESS This is a pleasant 38 yo male admitted for complains of fall and confusion. Reports that he had a momentary chest tightness and some nausea 2 days ago otherwise no recurrence and none prior. He has had 3 falls in the last few days noting with confusion episodes per chart review per his family member. He does have still some palpitations but no arrhythmias has been noted in the past per event monitor and none as an inpt. No traumatic injury was noted and fell because he lost his balance and not because of passing out. He could not tolerate CPAP because he is claustrophobic. and has been using O2 at Hs 2LPM but not consistent with it. also with intermittent SOA. He has high dose dilaudid because of significant back problems. He also has been coughing yellow to green sputum lately and has had pneumonia about a month ago. He has been exposed to his family members who had respiratory infection. 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 Oral surgery in relation to NETTA FAMILY HISTORY Family History: Diabetes SOCIAL HISTORY Smoke: No ALCOHOL: none Drugs: None Lives: with Family CURRENT MEDICATIONS CURRENT MEDICATIONS Current Medications Medications (Trade) Dose Ordered Sig/Malcolm Route PRN Reason Start Time Stop Time Status Last Admin Dose Admin Iohexol (Omnipaque 350 Mg/ml) 100 ml 1X ONCE IV 08/28/18 13:30 08/28/18 13:31 DC 08/28/18 13:30 Aspirin (Children'S Aspirin) 324 mg 1X ONCE PO 08/28/18 13:45 08/28/18 14:01 DC 08/28/18 14:04 Metoprolol Tartrate (Lopressor) 50 mg BID PO 08/28/18 21:00 08/28/18 21:50 Alprazolam (Xanax) 2 mg PRN BID PRN PO ANXIETY / AGITATION 08/28/18 14:15 08/29/18 08:37 Hydromorphone HCl (Dilaudid) 4 mg PRN Q6HRS PRN PO SEVERE PAIN 08/28/18 14:15 08/29/18 10:33 DC 08/29/18 06:16 ALLERGIES ALLERGIES: Coded Allergies: Penicillins (Verified Allergy, Intermediate, Hives, 06/26/18) ketorolac (Verified Allergy, Intermediate, 06/26/18) tramadol (Verified Allergy, Intermediate, 06/26/18) ROS Review of System 14 point ROS evaluated with pertinent positives noted per HPI PHYSICAL EXAM General: Alert, Oriented X3, Cooperative, No acute distress HEENT: Atraumatic, Mucous membr. moist/pink Lungs: Clear to auscultation, Normal air movement Heart: Regular rate (SR), Normal S1, Normal S2, No murmurs Abdomen: Soft, No tenderness, Other (obese) Extremities: No cyanosis, No edema Skin: No breakdown, No significant lesion Neuro: Normal speech, Sensation intact Psych/Mental Status: Mental status NL, Mood NL MUSCULOSKELETAL: Osteoarthritic changes both hands VITALS VITALS Vital Signs Date Time Temp Pulse Resp B/P (MAP) Pulse Ox O2 Delivery O2 Flow Rate FiO2 08/29/18 08:00 Room Air 08/29/18 07:00 97.5 72 16 117/75 (89) 93 97.5 08/28/18 11:30 3.0 LABS Lab: Laboratory Tests Test 08/28/18 17:35 08/28/18 21:45 08/29/18 10:05 Troponin I Quantitative 0.112 ng/mL (0.000-0.055) 0.105 ng/mL (0.000-0.055) Sodium Level 144 mmol/L (136-145) Potassium Level 4.1 mmol/L (3.5-5.1) Chloride Level 104 mmol/L (98-107) Carbon Dioxide Level 34 mmol/L (21-32) Anion Gap 6 (6-14) Blood Urea Nitrogen 7 mg/dL (8-26) Creatinine 0.7 mg/dL (0.7-1.3) Estimated GFR (Cockcroft-Gault) 126.9 Glucose Level 104 mg/dL (70-99) Calcium Level 8.4 mg/dL (8.5-10.1) Magnesium Level 2.0 mg/dL (1.8-2.4) Thyroid Stimulating Hormone (TSH) 1.542 uIU/mL (0.358-3.74) ECHOCARDIOGRAM ECHOCARDIOGRAM LEFT VENTRICLE The left ventricle is normal size. There is normal left ventricular wall thickness. Left ventricle systolic function is normal. The Ejection Fraction is 50-55%. There is normal LV segmental wall motion. ATRIA The interatrial septum is intact with no evidence for an atrial septal defect or patent foramen ovale as noted on 2-D or Doppler imaging. Injection of bubbles documented no interatrial shunt. GREAT VESSELS Not assessed. PERICARDIAL EFFUSION No pericardial effusion on limited imaging. Critical Notification Critical Value: No <Conclusion> Limited image obtained to ruleout right to left shunting only. No evidence of right to left atrial shunting with agitated saline contrast injection. DATE: 05/17/16 1521 STRESS TEST STRESS TEST Conclusion 1. Regadenoson cardioisotope stress test did not show any evidence of ischemia or infarct. 2. Normal left ventricular systolic function with ejection fraction calculated at 73%. 3. Low risk for cardiac events. DATE: 06/10/16 1259 ASSESSMENT/PLAN ASSESSMENT/PLAN 1. Atypical CP: Could not completely rule out ischemia 2. Toxic encephalopathy significant opioid use with possible hypoxic element with NETTA 3. Acute bronchitis with recent pneumonia 4. Mechanical Fall: nontraumatic. No syncope 5. Elevated troponin: peaked at 0.14, EKG with anteroseptal symmetrical t wave inversion 6. Chronic back pain with extensive back surgeries and chronic high dose opioid use. 7. HTN: controlled 8. NETTA 9. Morbid obesity Recommendations TTE, CK, lipids, Will need ischemic workup. Lovenox x1 Will discuss with primary solderer electronic. ASA. Will need CPAP but claustrophobic Continue with home metoprolol. FELICITY BELL APRN Aug 29, 2018 12:28
[2018-08-29] MEDS ORDERED: HEPARIN 25,000UTS/500ML PREMIX 500 ML IV PRN (13:00)
[2018-08-29] MEDS ORDERED: HEPARIN for IV BOLUS 10,000 UNIT/10 ML VIAL. IV PRN (13:00)
--- NOTE | 2018-08-29 13:01 | EKG ---
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
[2018-08-29 13:03] LABS: CHOLESTEROL/HDL RATIO 7.8
[2018-08-29 15:00] VITALS: BP 128/61
--- NOTE | 2018-08-29 16:29 | CARD ---
MR#: [id number] Date of Study: 08/29/2018 Ordering Physician: FELICITY BELL, Referring Physician: NORIS MCKEON, Tech: Tanika Mcclellan APPROVED REPORT EXAM: Two-dimensional and M-mode echocardiogram with Doppler and color Doppler. Other Information Quality : AverageHR: 74bpm INDICATION Presyncope, Elevated Troponin 2D DIMENSIONS RVDd4.1 (2.9-3.5cm)Left Atrium(2D)3.9 (1.6-4.0cm) IVSd1.7 (0.7-1.1cm)Aortic Root(2D)3.5 (2.0-3.7cm) LVDd4.5 (3.9-5.9cm)LVOT Diameter2.4 (1.8-2.4cm) PWd1.3 (0.7-1.1cm)LVDs3.5 (2.5-4.0cm) FS (%) 22.6 %SV41.6 ml Aortic Valve AoV Peak Jaylan.98.1cm/sAoV VTI15.7cm AO Peak GR.3.9mmHgLVOT Peak Jaylan.83.1cm/s LVOT VTI 15.88cmAO Mean GR.2mmHg NANCY (VMAX)2.68bn3NMI (VTI)4.40cm2 Mitral Valve MV E Gzckzxmx19.8cm/sMV DECEL GLLX292dt MV A Suauumcg75.4cm/sMV CJG28hm E/A Ratio1.4MVA (PHT)3.16cm2 TDI E/Lateral E'5.3E/Medial E'7.8 Pulmonary Valve PV Peak Pqzwyxsx16.1cm/sPV Peak Grad.3mmHg Tricuspid Valve TR P. Nysivbfk126zi/sRAP NOLJGBBK9ycRi TR Peak Gr.40srIvKAMP35bmHj Pulmonary Vein S1 Blpvxsuh08.0cm/sD2 Rtsqnlyi98.7cm/s PVa [id number] LEFT VENTRICLE The left ventricle is normal size. There is moderate concentric left ventricular hypertrophy. The lef t ventricular systolic function is normal. The ejection fraction is 55-60%. There is normal LV segmen peter wall motion. RIGHT VENTRICLE The right ventricle is normal size. There is normal right ventricular wall thickness. The right ventr icular systolic function is normal. ATRIA The left atrium size is normal. The right atrium size is normal. The interatrial septum is intact wit h no evidence for an atrial septal defect or patent foramen ovale as noted on 2-D or Doppler imaging. AORTIC VALVE The aortic valve is normal in structure and function. Doppler and Color Flow revealed no significant aortic regurgitation. There is no significant aortic valvular stenosis. MITRAL VALVE The mitral valve is thickened but opens well. There is no evidence of mitral valve prolapse. There is no mitral valve stenosis. Doppler and Color-flow revealed trace mitral regurgitation. TRICUSPID VALVE The tricuspid valve is normal in structure and function. Doppler and Color Flow revealed trace tricus pid regurgitation with an estimated PAP of 30 mmHg. There is no tricuspid valve stenosis. PULMONIC VALVE The pulmonic valve is not well visualized. Doppler and Color Flow revealed trace pulmonic valvular re gurgitation. GREAT VESSELS The aortic root is normal in size. The IVC is normal in size and collapses >50% with inspiration. PERICARDIAL EFFUSION There is no evidence of significant pericardial effusion. Critical Notification Critical Value: No <Conclusion> The left ventricular systolic function is normal. The ejection fraction is 55-60%. There is normal LV segmental wall motion. Trace mitral regurgitation. Trace tricuspid regurgitation with an estimated PAP of 30 mmHg. There is no evidence of significant pericardial effusion. Signed by : Zhao Duran, Electronically Approved : 08/29/2018 16:29:07
[2018-08-29 19:25] VITALS: BP 122/77
--- NOTE | 2018-08-29 19:31 | PDOC ---
PROGRESS NOTES Chief Complaint Chief Complaint Hypoxia secondary to narcotic Morbid obesity BMI 38 Toxic encephalopathy in the background of narcotic dependence-chronic narc use History of back surgeries 4-5 with staph aureus in the back (cant do back injections) Disc bulges, lumbar stenosis L2-L5 Fall with no trauma to head or neck-CT head and C-spine negative Elev troponin - History of Present Illness History of Present Illness Patient with no new complaints. Patient requesting doses of his medications to be adjusted clear could be every 4 hours. Patient is narcotic dependent and has been on narcotics for a long time due to pain. CONCERNS ADDRESSED TO THE BEST OF MY ABILITIES Vitals Vitals Vital Signs Date Time Temp Pulse Resp B/P (MAP) Pulse Ox O2 Delivery O2 Flow Rate FiO2 08/29/18 15:00 97.2 72 18 128/61 (83) 93 Room Air 97.2 08/28/18 11:30 3.0 Physical Exam General: Alert, Oriented X3, Cooperative, No acute distress Heart: Regular rate (SR), Normal S1, Normal S2, No murmurs Lungs: Crackles, Other Abdomen: Soft, No tenderness, Other (obese) Extremities: No cyanosis, No edema Skin: No breakdown, No significant lesion Labs LABS Laboratory Tests Test 08/28/18 21:45 08/29/18 10:05 Troponin I Quantitative 0.105 ng/mL (0.000-0.055) Sodium Level 144 mmol/L (136-145) Potassium Level 4.1 mmol/L (3.5-5.1) Chloride Level 104 mmol/L (98-107) Carbon Dioxide Level 34 mmol/L (21-32) Anion Gap 6 (6-14) Blood Urea Nitrogen 7 mg/dL (8-26) Creatinine 0.7 mg/dL (0.7-1.3) Estimated GFR (Cockcroft-Gault) 126.9 Glucose Level 104 mg/dL (70-99) Calcium Level 8.4 mg/dL (8.5-10.1) Magnesium Level 2.0 mg/dL (1.8-2.4) Creatine Kinase 57 U/L (39-308) Triglycerides Level 161 mg/dL (0-150) Cholesterol Level 148 mg/dL (0-200) LDL Cholesterol, Calculated 97 mg/dL (0-100) VLDL Cholesterol, Calculated 32 mg/dL (0-40) Non-HDL Cholesterol Calculated 129 mg/dL (0-129) HDL Cholesterol 19 mg/dL (40-60) Cholesterol/HDL Ratio 7.8 Thyroid Stimulating Hormone (TSH) 1.542 uIU/mL (0.358-3.74) Review of Systems Review of Systems Pertinent as per history of present illness otherwise 14 point review of system is negative Comment Review of Relevant I have reviewed the following items amanda (where applicable) has been applied. Labs Laboratory Tests Test 08/28/18 12:05 08/28/18 17:35 08/28/18 21:45 08/29/18 10:05 White Blood Count 8.0 x10^3/uL (4.0-11.0) Red Blood Count 4.62 x10^6/uL (4.30-5.70) Hemoglobin 12.5 g/dL (13.0-17.5) Hematocrit 39.1 % (39.0-53.0) Mean Corpuscular Volume 85 fL (79-100) Mean Corpuscular Hemoglobin 27 pg (25-35) Mean Corpuscular Hemoglobin Concent 32 g/dL (31-37) Red Cell Distribution Width 19.3 % (11.5-14.5) Platelet Count 262 x10^3/uL (140-400) Neutrophils (%) (Auto) 73 % (31-73) Lymphocytes (%) (Auto) 19 % (24-48) Monocytes (%) (Auto) 8 % (0-9) Eosinophils (%) (Auto) 0 % (0-3) Basophils (%) (Auto) 1 % (0-3) Neutrophils # (Auto) 5.8 x10^3uL (1.8-7.7) Lymphocytes # (Auto) 1.5 x10^3/uL (1.0-4.8) Monocytes # (Auto) 0.6 x10^3/uL (0.0-1.1) Eosinophils # (Auto) 0.0 x10^3/uL (0.0-0.7) Basophils # (Auto) 0.0 x10^3/uL (0.0-0.2) Sodium Level 142 mmol/L (136-145) 144 mmol/L (136-145) Potassium Level 4.3 mmol/L (3.5-5.1) 4.1 mmol/L (3.5-5.1) Chloride Level 101 mmol/L (98-107) 104 mmol/L (98-107) Carbon Dioxide Level 34 mmol/L (21-32) 34 mmol/L (21-32) Anion Gap 7 (6-14) 6 (6-14) Blood Urea Nitrogen 5 mg/dL (8-26) 7 mg/dL (8-26) Creatinine 0.8 mg/dL (0.7-1.3) 0.7 mg/dL (0.7-1.3) Estimated GFR (Cockcroft-Gault) 108.8 126.9 BUN/Creatinine Ratio 6 (6-20) Glucose Level 103 mg/dL (70-99) 104 mg/dL (70-99) Lactic Acid Level 1.5 mmol/L (0.4-2.0) Calcium Level 8.1 mg/dL (8.5-10.1) 8.4 mg/dL (8.5-10.1) Magnesium Level 1.7 mg/dL (1.8-2.4) 2.0 mg/dL (1.8-2.4) Total Bilirubin 0.6 mg/dL (0.2-1.0) Aspartate Amino Transf (AST/SGOT) 20 U/L (15-37) Alanine Aminotransferase (ALT/SGPT) 23 U/L (16-63) Alkaline Phosphatase 75 U/L (46-116) Troponin I Quantitative 0.146 ng/mL (0.000-0.055) 0.112 ng/mL (0.000-0.055) 0.105 ng/mL (0.000-0.055) Total Protein 7.0 g/dL (6.4-8.2) Albumin 3.6 g/dL (3.4-5.0) Albumin/Globulin Ratio 1.1 (1.0-1.7) Creatine Kinase 57 U/L (39-308) Triglycerides Level 161 mg/dL (0-150) Cholesterol Level 148 mg/dL (0-200) LDL Cholesterol, Calculated 97 mg/dL (0-100) VLDL Cholesterol, Calculated 32 mg/dL (0-40) Non-HDL Cholesterol Calculated 129 mg/dL (0-129) HDL Cholesterol 19 mg/dL (40-60) Cholesterol/HDL Ratio 7.8 Thyroid Stimulating Hormone (TSH) 1.542 uIU/mL (0.358-3.74) Laboratory Tests Test 08/28/18 21:45 08/29/18 10:05 Troponin I Quantitative 0.105 ng/mL (0.000-0.055) Sodium Level 144 mmol/L (136-145) Potassium Level 4.1 mmol/L (3.5-5.1) Chloride Level 104 mmol/L (98-107) Carbon Dioxide Level 34 mmol/L (21-32) Anion Gap 6 (6-14) Blood Urea Nitrogen 7 mg/dL (8-26) Creatinine 0.7 mg/dL (0.7-1.3) Estimated GFR (Cockcroft-Gault) 126.9 Glucose Level 104 mg/dL (70-99) Calcium Level 8.4 mg/dL (8.5-10.1) Magnesium Level 2.0 mg/dL (1.8-2.4) Creatine Kinase 57 U/L (39-308) Triglycerides Level 161 mg/dL (0-150) Cholesterol Level 148 mg/dL (0-200) LDL Cholesterol, Calculated 97 mg/dL (0-100) VLDL Cholesterol, Calculated 32 mg/dL (0-40) Non-HDL Cholesterol Calculated 129 mg/dL (0-129) HDL Cholesterol 19 mg/dL (40-60) Cholesterol/HDL Ratio 7.8 Thyroid Stimulating Hormone (TSH) 1.542 uIU/mL (0.358-3.74) Microbiology 08/28/18 Blood Culture - Preliminary, Resulted NO GROWTH AFTER 1 DAY Medications Current Medications Sodium Chloride 1,000 ml @ 1,000 mls/hr 1X ONCE IV Last administered on at 10:30; Start 08/28/18 at 10:30; Stop 08/28/18 at 11:29; Status DC Iohexol (Omnipaque 350 Mg/ml) 100 ml 1X ONCE IV Last administered on at 13:30; Start 08/28/18 at 13:30; Stop 08/28/18 at 13:31; Status DC Info (CONTRAST GIVEN -- Rx MONITORING) 1 each PRN DAILY PRN MC SEE COMMENTS; Start 08/28/18 at 13:30; Stop 08/30/18 at 13:29 Aspirin (Children'S Aspirin) 324 mg 1X ONCE PO Last administered on 08/28/18at 14:04; Start 08/28/18 at 13:45; Stop 08/28/18 at 14:01; Status DC Aspirin (Children'S Aspirin) 81 mg DAILY PO Last administered on 08/29/18at 12: 23; Start 08/29/18 at 09:00 Metoprolol Tartrate (Lopressor) 50 mg BID PO Last administered on 08/29/18at 12: 23; Start 08/28/18 at 21:00 Alprazolam (Xanax) 2 mg PRN BID PRN PO ANXIETY / AGITATION Last administered on 08/29/18at 08:37; Start 08/28/18 at 14:15 Hydromorphone HCl (Dilaudid) 4 mg PRN Q6HRS PRN PO SEVERE PAIN Last administered on 08/29/18at 06:16; Start 08/28/18 at 14:15; Stop 08/29/18 at 10:33 ; Status DC Acetaminophen (Tylenol) 500 mg PRN Q6HRS PRN PO MILD PAIN / TEMP; Start at 15:30 Ondansetron HCl (Zofran) 4 mg PRN Q6HRS PRN IV NAUSEA/VOMITING; Start 08/28/18 at 15:30 Hydromorphone HCl (Dilaudid) 4 mg PRN Q4HRS PRN PO SEVERE PAIN Last administered on 08/29/18at 16:26; Start 08/29/18 at 10:45 Levofloxacin (Levaquin) 750 mg DAILY06 PO Last administered on 08/29/18at 12:23 ; Start 08/29/18 at 10:45 Heparin Sodium/ Dextrose 500 ml @ 20 mls/hr CONT PRN IV SEE I/O RECORD; Start 08/29/18 at 13:00; Stop 08/29/18 at 13:18; Status DC Heparin Sodium (Porcine) (Heparin Sodium) 3,200 unit PRN Q6HRS PRN IV FOR UFH LEVEL LESS THAN 0.2; Start 08/29/18 at 13:00; Stop 08/29/18 at 13:18; Status DC Enoxaparin Sodium (Lovenox 150mg Syringe) 130 mg Q12HR SQ Last administered on 2/26/19at 14:02; Start 08/29/18 at 13:00; Stop 08/29/18 at 17:17; Status DC Lactobacillus Rhamnosus (Culturelle) 1 cap BID PO ; Start 08/29/18 at 21:00 Active Scripts Active Levaquin (Levofloxacin) 750 Mg Tablet 1 Tab PO DAILY Reported Dilaudid (Hydromorphone Hcl) 4 Mg Tablet 4 Mg PO PRN Q6HRS PRN Alprazolam 2 Mg Tablet 2 Mg PO PRN BID PRN Aspirin 81 Mg Tab.chew 1 Tab PO DAILY Metoprolol Tartrate 50 Mg Tablet 1 Tab PO BID Vitals/I & O Vital Sign - Last 24 Hours 08/28/18 08/28/18 08/28/18 08/28/18 19:35 20:00 21:50 23:10 Temp 97.7 98.1 97.7 98.1 Pulse 102 102 84 Resp 20 20 B/P (MAP) 127/77 (94) 127/77 125/85 (98) Pulse Ox 93 93 O2 Delivery Room Air Room Air Room Air 08/29/18 08/29/18 08/29/18 08/29/18 03:35 07:00 08:00 12:23 Temp 98.0 97.5 98.0 97.5 Pulse 71 72 72 Resp 20 16 B/P (MAP) 114/80 (91) 117/75 (89) 117/75 Pulse Ox 93 93 O2 Delivery Room Air Room Air Room Air 08/29/18 15:00 Temp 97.2 97.2 Pulse 72 Resp 18 B/P (MAP) 128/61 (83) Pulse Ox 93 O2 Delivery Room Air Intake and Output 08/28/18 08/28/18 08/29/18 15:00 23:00 07:00 Intake Total 0 ml 400 ml Output Total 750 ml Balance -750 ml 400 ml VIVI POSADAS MD Aug 29, 2018 19:31
[2018-08-29] MEDS: LACTOBACILLUS RHAMNOSUS GG 1 CAPSULE. PO SCH (20:36)
[2018-08-29 22:04] LABS: BILIRUBIN,URINE NEGATIVE (NEG); CLARITY,URINE CLEAR; COLOR,URINE YELLOW; NITRITE,URINE NEGATIVE (NEG); PROTEIN,URINE NEGATIVE (NEG-TRACE)
[2018-08-29 22:07] LABS: BARBITURATES NEG (NEG); BENZODIAZEPINES POS (NEG); CANNABINOIDS NEG (NEG); COCAINE NEG (NEG); METHADONE NEG (NEG); OPIATES POS (NEG); PHENCYCLIDINE NEG (NEG)
[2018-08-29 22:10] LABS: AMPHETAMINE/METHAMPHETAMINE NEG (NEG)
[2018-08-29 22:18] LABS: BACTERIA,URINE 0 /HPF (0-FEW); WBC,URINE 0 /HPF (0-4)
[2018-08-29 22:50] VITALS: BP 116/75
[2018-08-30] MEDS: HYDROmorphone 4 MG TABLET PO PRN ×5 (01:32→20:11)
[2018-08-30 03:30] VITALS: BP 113/65
[2018-08-30] MEDS: ALPRAZolam 1 MG TABLET PO PRN ×2 (06:58→20:11)
[2018-08-30 07:00] VITALS: BP 123/67
[2018-08-30] MEDS: LACTOBACILLUS RHAMNOSUS GG 1 CAPSULE. PO SCH ×2 (08:28→20:10)
[2018-08-30] MEDS: ASPIRIN CHEWABLE 81 MG TABLET. PO SCH (08:28)
[2018-08-30] MEDS ORDERED: REGADENOSON 0.4 MG/5 ML DISP.SYRIN. IV ONE (09:30)
[2018-08-30 10:43] VITALS: BP 122/71
--- NOTE | 2018-08-30 13:21 | RAD ---
MR#: [id number] Date of Study: 08/30/2018 Ordering Physician: FELICITY BELL, Referring Physician: BARB BORDY Tech: MARIELENA Escobar, ARRT (R) (N) APPROVED REPORT Test Type: Pharmacological Stress Nurse/Tech: Viola Palma RN Test Indications: syncope Cardiac History: Hypertension,cath 7 years ago,cardiac arrest x2 Medications: See Electronic Medical Record Medical History: See Electronic Medical Record Resting ECG: SR Resting Heart Rate: 75 bpm Resting Blood Pressure: 131/85mmHg Pretest Chest Pain: No chest pain Nurse/Tech Notes S1,S2 regular. Lungs diminished in the bases. Patient stated he recently had pneumonia. Consent: The procedure was explained to the patient in lay terms. Informed consent was witnessed. Arthur eout was entered into [employer]. History and Stress Test performed by RT Cornel Lal) (N) Pharm. Details Pharmacologic stress testing was performed using 0.4mg per 5ml of regadenoson given intravenously ove r 7-10 seconds. Stress Symptoms Chest pain during first minute of the test, patient rated it above a 10/10. Chest Pain resolved by 2 minute 30 second amanda of test. POST EXERCISE Reason for Termination: Infusion complete Target HR: No Max HR: 96 bpm Max Blood Pressure: 140/84mmHg Blood Pressure response to exercise: Normal blood pressure response during stress. Heart Rate response to exercise: WNL Chest Pain: Yes. see note above. Arrhythmia: No. ST Change: No. INTERPRETATION Stress EKG Conclusion: The resting EKG shows a sinus rhythm with nonspecific ST-T wave changes. The stress EKG shows no significant changes from baseline. No EKG evidence of stress-induced ischemia. Imaging Protocol IMAGE PROTOCOL: Stress Tc-99m/rest Tc-99m 2 days Rest: Stress: Viability: Radiopharm.Tc99m Sestamibi Dose31.9mCi Img Date 08/30/2018 Inj-Img [id number]. Stress Admin Site: rt upper armAdministrator: RT Cornel Lal)(N) STRESS DATA End Diast. Vol.139.0mlAv. Heart Rate82.0bpm End Syst. Vol.43.0mlCO Index BSA0.0L/min Myocardial Zftc255.0gEject. Anwdjxih31.0% Stress Rates Pk. Fill Rate3.48EDV/secLVtime Pk. Fill 160.18msec Pk. Empty Rate4.07ESV/secLVtime Pk. Lndjf756.17msec 1/3 Pk. Fill1.75EDV/sec Stress Scores Regional WT1.00Summed WT10.00 Regional WM0.00Summed WM0.00 LV Perfusion The stress images showed no significant defects. No evidence of reversible ischemia or infarct is present. Wall Motion Left ventricular systolic function is normal with an ejection fraction of 69%. LV Perf. Quant 17 Seg. SSS0.00 Stress Defect Extent (% LAD)0.00Rest Defect Extent (% LAD)Rev. Defect Extent (% LAD)0.00 Stress Defect Extent (% LCX) 0.00Rest Defect Extent (% LCX)Rev. Defect Extent (% LCX)0.00 Stress Defect Extent (% RCA)0.00Rest Defect Extent (% RCA)Rev. Defect Extent (% RCA)0.00 Stress Defect Extent (% COLE)0.00Rest Defect Extent (% COLE)Rev. Defect Extent (% COLE)0.00 Conclusion 1. No EKG evidence of stressed induced ischemia. 2. Nuclear imaging shows a normal stress scan. No evidence of reversible ischemia or infarct. 3. Normal left ventricular systolic function with ejection fraction of 69%. 4. Low to moderately low risk Lexiscan nuclear stress test. Signed by : Josiah Diggs MD Electronically Approved : 08/30/2018 13:21:30
[2018-08-30 14:57] VITALS: BP 121/74
--- NOTE | 2018-08-30 15:03 | NUR ---
SS following for discharge planning. SS reviewed pt chart. Pt is from home with spouse and currently on room air. No discharge needs noted at this time. SS will continue to follow for pending discharge needs.
[2018-08-30] MEDS: METOPROLOL TART IMMED RELEASE 50 MG TABLET. PO SCH ×2 (15:21→20:11)
--- NOTE | 2018-08-30 15:35 | PDOC ---
CARDIO Progress Notes Date and Time Date of Service 08/30/2018 Time of Evaluation 0845 Subjective Subjective: No Chest Pain, No shortness of breath, No Palpitations Vitals Vitals Vital Signs Date Time Temp Pulse Resp B/P (MAP) Pulse Ox O2 Delivery O2 Flow Rate FiO2 08/30/18 15:21 85 08/30/18 14:57 98.1 18 121/74 (90) 95 Room Air 98.1 Weight Weight [ ] Input and Output Intake and Output Intake and Output 08/30/18 07:00 Intake Total 2220 ml Output Total 1200 ml Balance 1020 ml Intake Oral 2220 ml Output Urine Total 1200 ml # Voids 3 Laboratory Labs Laboratory Tests Test 08/29/18 21:45 Urine Collection Type Unknown Urine Color Yellow Urine Clarity Clear Urine pH 8.0 Urine Specific [place] 1.015 Urine Protein Negative mg/dL (NEG-TRACE) Urine Glucose (UA) Negative mg/dL (NEG) Urine Ketones (Stick) Negative mg/dL (NEG) Urine Blood Small (NEG) Urine Nitrite Negative (NEG) Urine Bilirubin Negative (NEG) Urine Urobilinogen Dipstick 1.0 mg/dL (0.2 mg/dL) Urine Leukocyte Esterase Negative (NEG) Urine RBC 6-10 /HPF (0-2) Urine WBC 0 /HPF (0-4) Urine Bacteria 0 /HPF (0-FEW) Urine Opiates Screen Pos (NEG) Urine Methadone Screen Neg (NEG) Urine Barbiturates Neg (NEG) Urine Phencyclidine Screen Neg (NEG) Urine Amphetamine/Methamphetamine Neg (NEG) Urine Benzodiazepines Screen Pos (NEG) Urine Cocaine Screen Neg (NEG) Urine Cannabinoids Screen Neg (NEG) Urine Ethyl Alcohol Neg (NEG) Microbiology Micro Microbiology 08/28/18 Blood Culture - Preliminary, Resulted NO GROWTH AFTER 1 DAY Physical Exam HEENT: Neck Supple W Full Motion Chest: Symmetric LUNGS: Clear to Auscultation Heart: S1S2, RRR (SR) Abdomen: Soft N/T Extremities: No Calf Tenderness Neurology: alert, oriented, follow commands Assessment Assessment 1. Atypical CP: Could not completely rule out ischemia. EF and WM nml 2. Toxic encephalopathy significant opioid use with possible hypoxic element with NETTA 3. Acute bronchitis with recent pneumonia 4. Mechanical Fall: nontraumatic. No syncope 5. Elevated troponin: peaked at 0.14, suspect type 2. EKG with anteroseptal symmetrical t wave inversion (changes possibly from LVH). 6. Chronic back pain with extensive back surgeries and chronic high dose opioid use. 7. HTN: controlled 8. NETTA 9. Morbid obesity Recommendations MPI today if negative then anticipate home. Follow up in office in 4 weeks. ASA. Will need CPAP but claustrophobic Continue with home metoprolol. FELICITY Borja APRN Aug 30, 2018 15:35
[2018-08-30] MEDS ORDERED: NITROGLYCERIN SUBLINGUAL 0.4 MG BOTTLE OF 25. SL PRN (17:00)
--- NOTE | 2018-08-30 17:27 | PDOC ---
PROGRESS NOTES Chief Complaint Chief Complaint Hypoxia secondary to narcotic Morbid obesity BMI 38 Toxic encephalopathy in the background of narcotic dependence-chronic narc use History of back surgeries 4-5 with staph aureus in the back (cant do back injections) Disc bulges, lumbar stenosis L2-L5 Fall with no trauma to head or neck-CT head and C-spine negative Elev troponin - negative stress test CTA with groundglass appearance changes concerning to the patient. Positive blood culture one out of 4 bottles with corynebacterium most likely contaminant Plan: will consult Dr Carpio continue with supportive measures patient seems very anxious, reassurance provided, he seemed to be bartering with his paipn medications during my encounter, no need at the present time for iv pain medications. will observe overnight, in light of his blood culture which may be a false positive if he spikes a fever will repeat blood cultures History of Present Illness History of Present Illness Patient with no new complaints. plan of care discussed in detail all concerns addressed to the best of my abillities. Vitals Vitals Vital Signs Date Time Temp Pulse Resp B/P (MAP) Pulse Ox O2 Delivery O2 Flow Rate FiO2 08/30/18 15:21 85 08/30/18 14:57 98.1 18 121/74 (90) 95 Room Air 98.1 Physical Exam General: Alert, Oriented X3, Cooperative, No acute distress Heart: Regular rate (SR), Normal S1, Normal S2, No murmurs Lungs: Crackles, Other Abdomen: Soft, No tenderness, Other (obese) Extremities: No cyanosis, No edema Skin: No breakdown, No significant lesion Labs LABS Laboratory Tests Test 08/29/18 21:45 Urine Collection Type Unknown Urine Color Yellow Urine Clarity Clear Urine pH 8.0 Urine Specific [place] 1.015 Urine Protein Negative mg/dL (NEG-TRACE) Urine Glucose (UA) Negative mg/dL (NEG) Urine Ketones (Stick) Negative mg/dL (NEG) Urine Blood Small (NEG) Urine Nitrite Negative (NEG) Urine Bilirubin Negative (NEG) Urine Urobilinogen Dipstick 1.0 mg/dL (0.2 mg/dL) Urine Leukocyte Esterase Negative (NEG) Urine RBC 6-10 /HPF (0-2) Urine WBC 0 /HPF (0-4) Urine Bacteria 0 /HPF (0-FEW) Urine Opiates Screen Pos (NEG) Urine Methadone Screen Neg (NEG) Urine Barbiturates Neg (NEG) Urine Phencyclidine Screen Neg (NEG) Urine Amphetamine/Methamphetamine Neg (NEG) Urine Benzodiazepines Screen Pos (NEG) Urine Cocaine Screen Neg (NEG) Urine Cannabinoids Screen Neg (NEG) Urine Ethyl Alcohol Neg (NEG) Review of Systems Review of Systems pertinent as per hpi otherwise 10 point ROS negative. Comment Review of Relevant I have reviewed the following items amanda (where applicable) has been applied. Labs Laboratory Tests Test 08/28/18 17:35 08/28/18 21:45 08/29/18 10:05 08/29/18 21:45 Troponin I Quantitative 0.112 ng/mL (0.000-0.055) 0.105 ng/mL (0.000-0.055) Sodium Level 144 mmol/L (136-145) Potassium Level 4.1 mmol/L (3.5-5.1) Chloride Level 104 mmol/L (98-107) Carbon Dioxide Level 34 mmol/L (21-32) Anion Gap 6 (6-14) Blood Urea Nitrogen 7 mg/dL (8-26) Creatinine 0.7 mg/dL (0.7-1.3) Estimated GFR (Cockcroft-Gault) 126.9 Glucose Level 104 mg/dL (70-99) Calcium Level 8.4 mg/dL (8.5-10.1) Magnesium Level 2.0 mg/dL (1.8-2.4) Creatine Kinase 57 U/L (39-308) Triglycerides Level 161 mg/dL (0-150) Cholesterol Level 148 mg/dL (0-200) LDL Cholesterol, Calculated 97 mg/dL (0-100) VLDL Cholesterol, Calculated 32 mg/dL (0-40) Non-HDL Cholesterol Calculated 129 mg/dL (0-129) HDL Cholesterol 19 mg/dL (40-60) Cholesterol/HDL Ratio 7.8 Thyroid Stimulating Hormone (TSH) 1.542 uIU/mL (0.358-3.74) Urine Collection Type Unknown Urine Color Yellow Urine Clarity Clear Urine pH 8.0 Urine Specific [place] 1.015 Urine Protein Negative mg/dL (NEG-TRACE) Urine Glucose (UA) Negative mg/dL (NEG) Urine Ketones (Stick) Negative mg/dL (NEG) Urine Blood Small (NEG) Urine Nitrite Negative (NEG) Urine Bilirubin Negative (NEG) Urine Urobilinogen Dipstick 1.0 mg/dL (0.2 mg/dL) Urine Leukocyte Esterase Negative (NEG) Urine RBC 6-10 /HPF (0-2) Urine WBC 0 /HPF (0-4) Urine Bacteria 0 /HPF (0-FEW) Urine Opiates Screen Pos (NEG) Urine Methadone Screen Neg (NEG) Urine Barbiturates Neg (NEG) Urine Phencyclidine Screen Neg (NEG) Urine Amphetamine/Methamphetamine Neg (NEG) Urine Benzodiazepines Screen Pos (NEG) Urine Cocaine Screen Neg (NEG) Urine Cannabinoids Screen Neg (NEG) Urine Ethyl Alcohol Neg (NEG) Laboratory Tests Test 08/29/18 21:45 Urine Collection Type Unknown Urine Color Yellow Urine Clarity Clear Urine pH 8.0 Urine Specific [place] 1.015 Urine Protein Negative mg/dL (NEG-TRACE) Urine Glucose (UA) Negative mg/dL (NEG) Urine Ketones (Stick) Negative mg/dL (NEG) Urine Blood Small (NEG) Urine Nitrite Negative (NEG) Urine Bilirubin Negative (NEG) Urine Urobilinogen Dipstick 1.0 mg/dL (0.2 mg/dL) Urine Leukocyte Esterase Negative (NEG) Urine RBC 6-10 /HPF (0-2) Urine WBC 0 /HPF (0-4) Urine Bacteria 0 /HPF (0-FEW) Urine Opiates Screen Pos (NEG) Urine Methadone Screen Neg (NEG) Urine Barbiturates Neg (NEG) Urine Phencyclidine Screen Neg (NEG) Urine Amphetamine/Methamphetamine Neg (NEG) Urine Benzodiazepines Screen Pos (NEG) Urine Cocaine Screen Neg (NEG) Urine Cannabinoids Screen Neg (NEG) Urine Ethyl Alcohol Neg (NEG) Microbiology 08/28/18 Blood Culture - Preliminary, Resulted NO GROWTH AFTER 1 DAY Medications Current Medications Sodium Chloride 1,000 ml @ 1,000 mls/hr 1X ONCE IV Last administered on at 10:30; Start 08/28/18 at 10:30; Stop 08/28/18 at 11:29; Status DC Iohexol (Omnipaque 350 Mg/ml) 100 ml 1X ONCE IV Last administered on at 13:30; Start 08/28/18 at 13:30; Stop 08/28/18 at 13:31; Status DC Info (CONTRAST GIVEN -- Rx MONITORING) 1 each PRN DAILY PRN MC SEE COMMENTS; Start 08/28/18 at 13:30; Stop 08/30/18 at 13:29; Status DC Aspirin (Children'S Aspirin) 324 mg 1X ONCE PO Last administered on 08/28/18at 14:04; Start 08/28/18 at 13:45; Stop 08/28/18 at 14:01; Status DC Aspirin (Children'S Aspirin) 81 mg DAILY PO Last administered on 08/30/18at 08: 28; Start 08/29/18 at 09:00 Metoprolol Tartrate (Lopressor) 50 mg BID PO Last administered on 08/30/18at 15: 21; Start 08/28/18 at 21:00; Stop 08/30/18 at 16:53; Status DC Alprazolam (Xanax) 2 mg PRN BID PRN PO ANXIETY / AGITATION Last administered on 08/30/18at 06:58; Start 08/28/18 at 14:15 Hydromorphone HCl (Dilaudid) 4 mg PRN Q6HRS PRN PO SEVERE PAIN Last administered on 08/29/18at 06:16; Start 08/28/18 at 14:15; Stop 08/29/18 at 10:33 ; Status DC Acetaminophen (Tylenol) 500 mg PRN Q6HRS PRN PO MILD PAIN / TEMP; Start at 15:30 Ondansetron HCl (Zofran) 4 mg PRN Q6HRS PRN IV NAUSEA/VOMITING; Start 08/28/18 at 15:30 Hydromorphone HCl (Dilaudid) 4 mg PRN Q4HRS PRN PO SEVERE PAIN Last administered on 08/30/18at 15:21; Start 08/29/18 at 10:45 Levofloxacin (Levaquin) 750 mg DAILY06 PO Last administered on 08/30/18at 06:00 ; Start 08/29/18 at 10:45 Heparin Sodium/ Dextrose 500 ml @ 20 mls/hr CONT PRN IV SEE I/O RECORD; Start 08/29/18 at 13:00; Stop 08/29/18 at 13:18; Status DC Heparin Sodium (Porcine) (Heparin Sodium) 3,200 unit PRN Q6HRS PRN IV FOR UFH LEVEL LESS THAN 0.2; Start 08/29/18 at 13:00; Stop 08/29/18 at 13:18; Status DC Enoxaparin Sodium (Lovenox 150mg Syringe) 130 mg Q12HR SQ Last administered on 08/29/18at 14:02; Start 08/29/18 at 13:00; Stop 08/29/18 at 17:17; Status DC Lactobacillus Rhamnosus (Culturelle) 1 cap BID PO Last administered on at 08:28; Start 08/29/18 at 21:00 Regadenoson (Lexiscan) 0.4 mg 1X ONCE IV Last administered on 08/30/18at 10:24 ; Start 08/30/18 at 09:30; Stop 08/30/18 at 09:31; Status DC Atorvastatin Calcium (Lipitor) 10 mg QHS PO ; Start 08/30/18 at 21:00 Metoprolol Tartrate (Lopressor) 75 mg BID PO ; Start 08/30/18 at 21:00 Nitroglycerin (Nitrostat) 0.4 mg PRN Q5MIN PRN SL CHEST PAIN; Start 08/30/18 at 17:00 Active Scripts Active Levaquin (Levofloxacin) 750 Mg Tablet 1 Tab PO DAILY Reported Dilaudid (Hydromorphone Hcl) 4 Mg Tablet 4 Mg PO PRN Q6HRS PRN Alprazolam 2 Mg Tablet 2 Mg PO PRN BID PRN Aspirin 81 Mg Tab.chew 1 Tab PO DAILY Metoprolol Tartrate 50 Mg Tablet 1 Tab PO BID Vitals/I & O Vital Sign - Last 24 Hours 08/29/18 08/29/18 08/29/18 08/29/18 19:25 20:00 20:36 22:50 Temp 98.0 97.7 98.0 97.7 Pulse 76 76 72 Resp 20 18 B/P (MAP) 122/77 (92) 122/77 116/75 (89) Pulse Ox 95 95 O2 Delivery Room Air Room Air Room Air 08/30/18 08/30/18 08/30/18 08/30/18 03:30 07:00 08:10 10:43 Temp 97.8 97.7 98.2 97.8 97.7 98.2 Pulse 71 70 78 Resp 18 18 18 B/P (MAP) 113/65 (81) 123/67 (85) 122/71 (88) Pulse Ox 96 91 96 O2 Delivery Room Air Room Air Room Air Room Air 08/30/18 08/30/18 14:57 15:21 Temp 98.1 98.1 Pulse 84 85 Resp 18 B/P (MAP) 121/74 (90) Pulse Ox 95 O2 Delivery Room Air Intake and Output 08/29/18 08/29/18 08/30/18 15:00 23:00 07:00 Intake Total 400 ml 1000 ml 820 ml Output Total 400 ml 800 ml Balance 400 ml 600 ml 20 ml VIVI POSADAS MD Aug 30, 2018 17:27
[2018-08-30 19:28] VITALS: BP 151/64
[2018-08-30] MEDS ORDERED: ATORVASTATIN CALCIUM 10 MG TABLET. PO SCH (21:00)
[2018-08-30 22:24] VITALS: BP 125/76
[2018-08-31] MEDS: HYDROmorphone 4 MG TABLET PO PRN ×5 (02:11→18:25)
[2018-08-31] MEDS: ALPRAZolam 1 MG TABLET PO PRN ×2 (06:29→18:24)
[2018-08-31 07:00] VITALS: BP 128/85
[2018-08-31] MEDS: LACTOBACILLUS RHAMNOSUS GG 1 CAPSULE. PO SCH (08:26)
[2018-08-31] MEDS: ASPIRIN CHEWABLE 81 MG TABLET. PO SCH (08:27)
[2018-08-31] MEDS: METOPROLOL TART IMMED RELEASE 50 MG TABLET. PO SCH (08:27)
[2018-08-31 11:00] VITALS: BP 142/82
--- NOTE | 2018-08-31 11:59 | PDOC ---
PULMONARY PROGRESS NOTES Vitals Vital Signs Date Time Temp Pulse Resp B/P (MAP) Pulse Ox O2 Delivery O2 Flow Rate FiO2 08/31/18 11:00 98.2 64 18 142/82 (102) 94 Room Air 98.2 General: Alert, No acute distress HEENT: Other Lungs: Crackles, Other Cardiovascular: S1, S2 Abdomen: Soft, Non-tender Extremities: No Edema Labs Laboratory Tests Test 08/29/18 21:45 Urine Collection Type Unknown Urine Color Yellow Urine Clarity Clear Urine pH 8.0 Urine Specific [place] 1.015 Urine Protein Negative mg/dL (NEG-TRACE) Urine Glucose (UA) Negative mg/dL (NEG) Urine Ketones (Stick) Negative mg/dL (NEG) Urine Blood Small (NEG) Urine Nitrite Negative (NEG) Urine Bilirubin Negative (NEG) Urine Urobilinogen Dipstick 1.0 mg/dL (0.2 mg/dL) Urine Leukocyte Esterase Negative (NEG) Urine RBC 6-10 /HPF (0-2) Urine WBC 0 /HPF (0-4) Urine Bacteria 0 /HPF (0-FEW) Urine Opiates Screen Pos (NEG) Urine Methadone Screen Neg (NEG) Urine Barbiturates Neg (NEG) Urine Phencyclidine Screen Neg (NEG) Urine Amphetamine/Methamphetamine Neg (NEG) Urine Benzodiazepines Screen Pos (NEG) Urine Cocaine Screen Neg (NEG) Urine Cannabinoids Screen Neg (NEG) Urine Ethyl Alcohol Neg (NEG) Medications Active Scripts Medications Dose Route/Sig Max Daily Dose Days Date Category Levaquin (Levofloxacin) 750 Mg Tablet 1 Tab PO DAILY 07/23/18 Rx Dilaudid (Hydromorphone Hcl) 4 Mg Tablet 4 Mg PO PRN Q6HRS PRN 07/22/18 Reported Alprazolam 2 Mg Tablet 2 Mg PO PRN BID PRN 07/22/18 Reported Aspirin 81 Mg Tab.chew 1 Tab PO DAILY 06/07/18 Reported Metoprolol Tartrate 50 Mg Tablet 1 Tab PO BID 06/07/18 Reported Impression . NOTE DICTATED D/C HOME FOLLOW UP IN 8 WEEKS JOSE FERRARO MD Aug 31, 2018 11:59
[2018-08-31] MEDS ORDERED: LACT1CAP19 PO (13:00)
[2018-08-31] MEDS ORDERED: ATOR10TA60 PO (13:00)
--- NOTE | 2018-08-31 13:07 | PDOC3 ---
Discharge Summary Visit Information Date of Admission: Aug 28, 2018 Date of Discharge: Aug 31, 2018 Admitting Diagnosis Comment: Hypoxia secondary to narcotic Morbid obesity BMI 38 Toxic encephalopathy in the background of narcotic dependence-chronic narc use History of back surgeries 4-5 with staph aureus in the back (cant do back injections) Disc bulges, lumbar stenosis L2-L5 Fall with no trauma to head or neck-CT head and C-spine negative Elev troponin - PLAN: OBS patient status Trend troponins Cardiology was consulted for the elevation trop CT chest rule out PE-likely hypoxia from narcotic use not from PE Resume home meds but not IV Dilaudid Narcan if needed PT OT Final Diagnosis Hypoxia secondary to narcotic Morbid obesity BMI 38 Toxic encephalopathy in the background of narcotic dependence-chronic narc use History of back surgeries 4-5 with staph aureus in the back (cant do back injections) Disc bulges, lumbar stenosis L2-L5 Fall with no trauma to head or neck-CT head and C-spine negative Elev troponin - negative stress test CTA with groundglass appearance changes concerning to the patient, reassurance provided, pulmonology consult done. Positive blood culture one out of 4 bottles with corynebacterium most likely contaminant Brief Hospital Course Allergies Allergies Coded Allergies Type Severity Reaction Last Updated Verified Penicillins Allergy Intermediate Hives 06/26/18 Yes ketorolac Allergy Intermediate 06/26/18 Yes tramadol Allergy Intermediate 06/26/18 Yes Vital Signs Vital Signs Date Time Temp Pulse Resp B/P (MAP) Pulse Ox O2 Delivery O2 Flow Rate FiO2 08/31/18 11:00 98.2 64 18 142/82 (102) 94 Room Air 98.2 Lab Results Laboratory Tests Test 08/29/18 21:45 Urine Collection Type Unknown Urine Color Yellow Urine Clarity Clear Urine pH 8.0 Urine Specific [place] 1.015 Urine Protein Negative mg/dL (NEG-TRACE) Urine Glucose (UA) Negative mg/dL (NEG) Urine Ketones (Stick) Negative mg/dL (NEG) Urine Blood Small (NEG) Urine Nitrite Negative (NEG) Urine Bilirubin Negative (NEG) Urine Urobilinogen Dipstick 1.0 mg/dL (0.2 mg/dL) Urine Leukocyte Esterase Negative (NEG) Urine RBC 6-10 /HPF (0-2) Urine WBC 0 /HPF (0-4) Urine Bacteria 0 /HPF (0-FEW) Urine Opiates Screen Pos (NEG) Urine Methadone Screen Neg (NEG) Urine Barbiturates Neg (NEG) Urine Phencyclidine Screen Neg (NEG) Urine Amphetamine/Methamphetamine Neg (NEG) Urine Benzodiazepines Screen Pos (NEG) Urine Cocaine Screen Neg (NEG) Urine Cannabinoids Screen Neg (NEG) Urine Ethyl Alcohol Neg (NEG) Brief Hospital Course 38-year-old obese male, brought in by concerned mother, he lives at home with , very narcotic dependent and tolerant on 16 mg of Dilaudid every day along with some other pain medicines which mother claims they keep type locked in a box/safe. Fall, some delirium, past 72 hours. Poor by mouth. He fell 3 times in the last 24 hours and hit his head and back and so far no injuries there. He has had 4-5 back surgeries with history of staph infection in one of his discs hence cannot have back injections. In any case labs unremarkable except for troponin of 0.146 and is admitted for rule out PE because of low desaturations likely from narcotics. ER Did not have to do anything but just oxygenation and IV fluids and he woke up. NO narcan needed ER mid-level provider has discussed no narcotics because of some hypoxia and delirium/very sleepy when he arrived at ER. Somehow, I might have difficulty doing this because he is now agreeable to picc as he is a hard stick. Need picc to trend cardiac enzymes, discussed with optical laboratory mechanic unable to get blood and has tried multiple times by [address] lumbar spine shows the following no acute pathology but old stuff: : Lumbar fusion is seen from L3 through L5. Normal alignment between L3 and L4 and L5 is seen. Small midline laminectomy of L3 is seen. Large decompressive laminectomy of L4 is seen. There is mild retrolisthesis of L2 on L3. Minimal retrolisthesis of L5-S1 is seen. There is degenerative facet arthropathy at L2-3 and L3-4 and L4-5 and L5-S1. No anterolisthesis is seen. No compression fracture or discitis or lytic process is evident. The transverse processes are intact. Patient admitted to the medical floor where he was evaluated by cardiology given a slight elevation of troponin. Patient most likely had this is demand ischemia. He underwent a stress test with negative findings for ischemic changes and he was deemed appropriate from the cardiological standpoint of view to be dismissed home with follow-up in the outpatient setting. The patient had a CAT scan as part of his workup on 08/29/2018 with the following results: 1. No convincing pulmonary embolism is identified. Heart is enlarged. There are again areas of groundglass infiltrate bilaterally although now more nodular appearing foci of the lower lobes bilaterally, interval decreased left upper lobe infiltrate. Nodular foci of infiltrative density could be on infectious basis unless there is suspicion for neoplastic or inflammatory etiology. There is persistent nonspecific hilar lymphadenopathy, somewhat increased on the right. Mediastinal nodes are fairly similar. copied from chart Patient was very concerned due to the report of this nodular focus try of infiltrative density which radiology read as probably infectious also commented on a suspicion for neoplastic or inflammatory etiology to it given the patient a great deal of anxiety which he suffers on a regular basis from. Patient was seen in consultation by pulmonology who provided reassurance to the patient that these are chronic changes can be followed up in the outpatient setting. He will be following up with Dr. Owens in the outpatient setting for a sleep study given his body habitus and this will probably have a back on his life given that left untreated obstructive sleep apnea will prove fatal in the long run for the patient. He is in good spirits to be dismissed home all of his concerns were addressed to the best of my abilities Discharge Information Condition at Discharge: Improved (1 week with primary care) Follow Up: Weeks Disposition/Orders: D/C to Home Scheduled Aspirin (Aspirin) 81 Mg Tab.chew, 1 TAB PO DAILY for blood thinner, #30 Ref 3 ( Reported) Entered as Reported by: VESNA SERNA on 06/07/18 3955 Last Action: Continued on 08/28/18 1356 by NORIS MCKEON Atorvastatin Calcium (Atorvastatin Calcium) 10 Mg Tablet, 10 MG PO QHS for dyslipidemia for 30 Days, #30 Prescribed by: VIVI POSADAS MD on 08/31/18 1300 Lactobacillus Rhamnosus Gg (Culturelle) 1 Each Cap.sprink, 1 CAP PO BID for probiotic for 7 Days, #14 Prescribed by: VIVI POSADAS MD on 08/31/18 1300 Levofloxacin (Levaquin) 750 Mg Tablet, 1 TAB PO DAILY for pna, #6 Prescribed by: ABDELRAHMAN JOSEPH MD on 07/23/18 4753 Last Action: HELD on 08/28/18 1356 by NORIS MCKEON Metoprolol Tartrate (Metoprolol Tartrate) 50 Mg Tablet, 1 TAB PO BID for hypertension, #60 Ref 5 (Reported) Entered as Reported by: VESNA SERNA on 06/07/18 0858 Last Action: Continued on 08/28/181355 by NORIS MCKEON Scheduled PRN Alprazolam (Alprazolam) 2 Mg Tablet, 2 MG PO PRN BID PRN for ANXIETY / AGITATION , Ref 0 (Reported) Entered as Reported by: CARL WILKINS [facility] on 07/22/1828 Last Action: Converted on 08/28/181355 by NORIS MCKEON Hydromorphone Hcl (Dilaudid) 4 Mg Tablet, 4 MG PO PRN Q6HRS PRN for PAIN, ( Reported) Entered as Reported by: CARL WILKINS [facility] on 07/22/18 0730 Last Action: Converted on 08/28/181355 by VIVI GRANDE MD Aug 31, 2018 13:07
[2018-08-31 15:00] VITALS: BP 106/58
[2018-08-31] MEDS ORDERED: METO50TA6 PO (15:53)
--- NOTE | 2018-08-31 17:17 | NUR ---
Discharge Note: ANGEL PARISI Discharge instructions and discharge home medications reviewed with Patient and a copy given. All questions have been answered and understanding verbalized. The following instructions and handouts were given: Medication, follow-up, Chest pain, Stress test, cholesterol, pain management, ect Discontinued lines and drains: PICC Line intact and L FA IV. Patient discharged to Home or Self Care with Family Member via Wheelchair
--- NOTE | 2018-08-31 17:40 | PDOC ---
PROGRESS NOTES Subjective Subjective Patient seen and examined He looks and feels better today. Objective Objective Vital Signs Date Time Temp Pulse Resp B/P (MAP) Pulse Ox O2 Delivery O2 Flow Rate FiO2 08/31/18 15:00 97.9 69 18 106/58 (74) 94 Room Air 97.9 08/28/18 11:30 3.0 Intake and Output 08/31/18 07:00 Intake Total 2400 ml Output Total 2425 ml Balance -25 ml Intake Oral 2400 ml Output Urine Total 2425 ml Physical Exam Abdomen: Normal bowel sounds Heart: Regular rate General: No acute distress Lungs: Clear to auscultation Assessment Assessment Atypical chest pain. MPI testing shows no reversible ischemia or infarct. Normal LV function. Continuing medical treatment. The patient feels well today. Toxic encephalopathy. Resolved. Minimally elevated troponin at 0.14. Demand ischemia. Normal MPI testing. Chronic back pain with multiple previous surgeries and high pain medication use. Controlled hypertension. Morbid obesity. Increasing frequency of palpitations. On metoprolol 50 mg by mouth twice a day. Will increase beta blockers to 75 mg by mouth twice a day. Also the patient has requested home sublingual nitroglycerin prescription on discharge. Comment Review of Relevant I have reviewed the following items amanda (where applicable) has been applied. Labs Laboratory Tests Test 08/29/18 21:45 Urine Collection Type Unknown Urine Color Yellow Urine Clarity Clear Urine pH 8.0 Urine Specific [place] 1.015 Urine Protein Negative mg/dL (NEG-TRACE) Urine Glucose (UA) Negative mg/dL (NEG) Urine Ketones (Stick) Negative mg/dL (NEG) Urine Blood Small (NEG) Urine Nitrite Negative (NEG) Urine Bilirubin Negative (NEG) Urine Urobilinogen Dipstick 1.0 mg/dL (0.2 mg/dL) Urine Leukocyte Esterase Negative (NEG) Urine RBC 6-10 /HPF (0-2) Urine WBC 0 /HPF (0-4) Urine Bacteria 0 /HPF (0-FEW) Urine Opiates Screen Pos (NEG) Urine Methadone Screen Neg (NEG) Urine Barbiturates Neg (NEG) Urine Phencyclidine Screen Neg (NEG) Urine Amphetamine/Methamphetamine Neg (NEG) Urine Benzodiazepines Screen Pos (NEG) Urine Cocaine Screen Neg (NEG) Urine Cannabinoids Screen Neg (NEG) Urine Ethyl Alcohol Neg (NEG) Microbiology 08/28/18 Blood Culture - Preliminary, Resulted NO GROWTH AFTER 2 DAYS Medications Current Medications Sodium Chloride 1,000 ml @ 1,000 mls/hr 1X ONCE IV Last administered on at 10:30; Start 08/28/18 at 10:30; Stop 08/28/18 at 11:29; Status DC Iohexol (Omnipaque 350 Mg/ml) 100 ml 1X ONCE IV Last administered on at 13:30; Start 08/28/18 at 13:30; Stop 08/28/18 at 13:31; Status DC Info (CONTRAST GIVEN -- Rx MONITORING) 1 each PRN DAILY PRN MC SEE COMMENTS; Start 08/28/18 at 13:30; Stop 08/30/18 at 13:29; Status DC Aspirin (Children'S Aspirin) 324 mg 1X ONCE PO Last administered on 08/28/18at 14:04; Start 08/28/18 at 13:45; Stop 08/28/18 at 14:01; Status DC Aspirin (Children'S Aspirin) 81 mg DAILY PO Last administered on 08/31/18at 08: 27; Start 08/29/18 at 09:00 Metoprolol Tartrate (Lopressor) 50 mg BID PO Last administered on 08/30/18at 15: 21; Start 08/28/18 at 21:00; Stop 08/30/18 at 16:53; Status DC Alprazolam (Xanax) 2 mg PRN BID PRN PO ANXIETY / AGITATION Last administered on 08/31/18at 06:29; Start 08/28/18 at 14:15 Hydromorphone HCl (Dilaudid) 4 mg PRN Q6HRS PRN PO SEVERE PAIN Last administered on 08/29/18at 06:16; Start 08/28/18 at 14:15; Stop 08/29/18 at 10:33 ; Status DC Acetaminophen (Tylenol) 500 mg PRN Q6HRS PRN PO MILD PAIN / TEMP; Start at 15:30 Ondansetron HCl (Zofran) 4 mg PRN Q6HRS PRN IV NAUSEA/VOMITING; Start 08/28/18 at 15:30 Hydromorphone HCl (Dilaudid) 4 mg PRN Q4HRS PRN PO SEVERE PAIN Last administered on 08/31/18at 14:52; Start 08/29/18 at 10:45 Levofloxacin (Levaquin) 750 mg DAILY06 PO Last administered on 08/31/18at 06:29 ; Start 08/29/18 at 10:45 Heparin Sodium/ Dextrose 500 ml @ 20 mls/hr CONT PRN IV SEE I/O RECORD; Start 08/29/18 at 13:00; Stop 08/29/18 at 13:18; Status DC Heparin Sodium (Porcine) (Heparin Sodium) 3,200 unit PRN Q6HRS PRN IV FOR UFH LEVEL LESS THAN 0.2; Start 08/29/18 at 13:00; Stop 08/29/18 at 13:18; Status DC Enoxaparin Sodium (Lovenox 150mg Syringe) 130 mg Q12HR SQ Last administered on 08/29/18at 14:02; Start 08/29/18 at 13:00; Stop 08/29/18 at 17:17; Status DC Lactobacillus Rhamnosus (Culturelle) 1 cap BID PO Last administered on at 08:26; Start 08/29/18 at 21:00 Regadenoson (Lexiscan) 0.4 mg 1X ONCE IV Last administered on 08/30/18at 10:24 ; Start 08/30/18 at 09:30; Stop 08/30/18 at 09:31; Status DC Atorvastatin Calcium (Lipitor) 10 mg QHS PO Last administered on 08/30/18at 20: 10; Start 08/30/18 at 21:00 Metoprolol Tartrate (Lopressor) 75 mg BID PO Last administered on 08/31/18at 08: 27; Start 08/30/18 at 21:00 Nitroglycerin (Nitrostat) 0.4 mg PRN Q5MIN PRN SL CHEST PAIN; Start 08/30/18 at 17:00 Active Scripts Active Culturelle (Lactobacillus Rhamnosus Gg) 1 Each Cap.sprink 1 Cap PO BID 7 Days Atorvastatin Calcium 10 Mg Tablet 10 Mg PO QHS 30 Days Levaquin (Levofloxacin) 750 Mg Tablet 1 Tab PO DAILY Reported Metoprolol Tartrate 50 Mg Tablet 75 Mg PO BID Dilaudid (Hydromorphone Hcl) 4 Mg Tablet 4 Mg PO PRN Q6HRS PRN Alprazolam 2 Mg Tablet 2 Mg PO PRN BID PRN Aspirin 81 Mg Tab.chew 1 Tab PO DAILY Vitals/I & O Vital Sign - Last 24 Hours 08/30/18 08/30/18 08/30/18 08/30/18 19:28 20:00 20:11 22:24 Temp 98.2 97.8 98.2 97.8 Pulse 66 66 65 Resp 16 16 B/P (MAP) 151/64 (93) 151/64 125/76 (92) Pulse Ox 96 94 O2 Delivery Room Air Room Air Room Air 08/31/18 08/31/18 08/31/18 08/31/18 07:00 08:00 08:27 11:00 Temp 98.0 98.2 98.0 98.2 Pulse 80 74 64 Resp 18 18 B/P (MAP) 128/85 (99) 142/82 (102) Pulse Ox 93 94 O2 Delivery Room Air Room Air Room Air 08/31/18 15:00 Temp 97.9 97.9 Pulse 69 Resp 18 B/P (MAP) 106/58 (74) Pulse Ox 94 O2 Delivery Room Air Intake and Output 08/30/18 08/30/18 08/31/18 15:00 23:00 07:00 Intake Total 800 ml 1000 ml 600 ml Output Total 700 ml 550 ml 1175 ml Balance 100 ml 450 ml -575 ml IRIS RESENDIZ MD Aug 31, 2018 17:40
--- NOTE | 2018-08-31 19:02 | NUR ---
Patient's instructions reviewed. Patient verbalized understanding. Patient picked up by anjelica.
--- NOTE | 2018-09-01 02:54 | CONS ---
DATE OF CONSULTATION: 08/31/2018 ATTENDING PHYSICIAN: Dr. Vines. REASON FOR CONSULTATION: The patient is seen in pulmonary consultation at the request of Dr. Allison for abnormal CT chest. HISTORY OF PRESENT ILLNESS: The patient is a 38-year-old that presented with some atypical chest discomfort. Part of his workup included CT chest. CT revealed bilateral infiltrates, ground-glass opacities. There is some nodularity to the infiltrate, I was consulted. The patient has been admitted in the past. In fact, he was seen by our service back on 07/22/2018. He had abnormal CT at that time that cleared up. This was more than likely due to CHF. He has a cough, mostly nonproductive. The patient presented with the above complaints and in addition, he was encephalopathic, which was more than likely related to his narcotic use. He denies fever, chills, night sweats. He denies hemoptysis. He is a lifetime nonsmoker. PAST MEDICAL HISTORY: Otherwise remarkable for obstructive sleep apnea, nontolerant to CPAP, he is claustrophobic, AFib, hypertension, previous pneumonia, osteoarthritis. PAST SURGICAL HISTORY: He is status post appendectomy, cholecystectomy, tonsillectomy, back surgery, anxiety, and chronic pain. ALLERGIES: PENICILLIN, KETOROLAC AND TRAMADOL. REVIEW OF SYSTEMS: CONSTITUTIONAL: No fever or chills. EYES: No change in visual acuity. HEENT: No nasal congestion or sore throat. PULMONARY: As indicated above. CARDIOVASCULAR: No chest pain. No pressure. GASTROINTESTINAL: No nausea, vomiting, diarrhea. GENITOURINARY: No dysuria or frequency. MUSCULOSKELETAL: No localized muscle aches or joint pains. SKIN: No new skin rashes. NEUROLOGIC: No headaches, diplopia or blurred vision. CURRENT MEDICATION: List was reviewed. PHYSICAL EXAMINATION: VITAL SIGNS: Stable. O2 saturation was greater than 92% on room air. HEENT: Eyes, the sclerae were nonicteric. NECK: Jugular venous distention was not elevated. No lymphadenopathy. CHEST: Full expansion. LUNGS: Adequate airway flow with no wheezes. CARDIOVASCULAR: Regular rate and rhythm with S1, S2, no S3. ABDOMEN: Soft, obese. EXTREMITIES: No clubbing, cyanosis or edema. NEUROLOGIC: The patient was awake, alert, following commands. A detailed neuro exam was not performed. LABORATORY DATA: Reviewed. White count was normal. Hemoglobin and hematocrit were noted. Electrolytes were noted. BUN and creatinine were noted. Troponin was elevated. IMPRESSION: 1. Abnormal CT chest, compatible with acute on chronic diastolic heart failure. 2. Obesity. 3. Clinical presentation compatible with obstructive sleep apnea. The patient intolerant to CPAP, he is claustrophobic. 4. Chronic pain. The patient is seeking IV Dilaudid. 5. Mechanical fall. 6. Acute bronchitis. PLAN: 1. Discharged home. Follow up in the office in 2 months with a followup CT chest. 2. I will have my office check into the possibility of obtaining a polysomnogram. His insurance may preclude the polysomnogram. 3. Continue Levaquin for additional 5 days. 4. The patient instructed on the importance of avoiding excessive narcotics. The above was discussed with Dr. Allison. JOSE FERRARO MD DR: DOV/ned JOB#: [id number] / [id number]
== END 2018-08-31 19:04 | disposition home or self-care (01) | DRG 91 ==
LOC: ER 10:34 → 2 SOUTH 14:05
PROVIDERS: ADMIT Internal Medicine; ATTEND Internal Medicine
PROC: 02HV33Z Insertion of Infusion Device into Superior Vena Cava, Percutaneous Approach (ICD-10-PCS; principal; 2018-08-28)
PROC: B548ZZA Ultrasonography of Superior Vena Cava, Guidance (ICD-10-PCS; 2018-08-28)
DX: G92 Toxic encephalopathy (principal); J96.00 Acute respiratory failure, unspecified whether with hypoxia or hypercapnia; I50.33 Acute on chronic diastolic (congestive) heart failure; F11.20 Opioid dependence, uncomplicated; I24.8 Other forms of acute ischemic heart disease; I11.0 Hypertensive heart disease with heart failure; E66.01 Morbid (severe) obesity due to excess calories; G47.33 Obstructive sleep apnea (adult) (pediatric); F40.240 Claustrophobia; G89.29 Other chronic pain; I48.91 Unspecified atrial fibrillation; J20.9 Acute bronchitis, unspecified; M46.96 Unspecified inflammatory spondylopathy, lumbar region; R29.6 Repeated falls; T40.605A Adverse effect of unspecified narcotics, initial encounter; W18.30XA Fall on same level, unspecified, initial encounter; W18.39XA Other fall on same level, initial encounter; M19.90 Unspecified osteoarthritis, unspecified site; Z83.3 Family history of diabetes mellitus; Z86.19 Personal history of other infectious and parasitic diseases; Z86.73 Personal history of transient ischemic attack (TIA), and cerebral infarction without residual deficits; Z87.442 Personal history of urinary calculi; Z87.01 Personal history of pneumonia (recurrent); Z68.38 Body mass index [BMI] 38.0-38.9, adult; Z90.49 Acquired absence of other specified parts of digestive tract; Z88.0 Allergy status to penicillin; Z88.8 Allergy status to other drugs, medicaments and biological substances; Y93.89 Activity, other specified; Y92.89 Other specified places as the place of occurrence of the external cause; Y99.8 Other external cause status; T40.2X5A Adverse effect of other opioids, initial encounter
CPT/HCPCS: 36415; 36569; 70450; 71045; 71275; 72125; 72128; 72131; 78452; 80048; 80053; 80061; 80307; 81001; 82550; 83605; 83735; 84443; 84484; 85025; 87040; 87077; 87205; 93005; 93017; 93306; 96374; A9500; J1650; J2785; J7030; Q9967

== ENCOUNTER 2018-09-03 17:13 | Inpatient (IN) | payer OTHER ==
[~2018-09-03] VITALS: Ht 177.8 cm; Wt 126.8 kg
[~2018-09-03 17:13] MED LIST changes: +ATOR10TA60 PO; +LACT1CAP19 PO
[2018-09-03 18:52] LABS: BASO % 1 % (0-3); EOS # 0.2 x10^3/uL (0.0-0.7); EOS % 4 % (0-3); HEMATOCRIT 39.9 % (39.0-53.0); HEMOGLOBIN 12.6 g/dL (13.0-17.5); LYMPH # 1.4 x10^3/uL (1.0-4.8); LYMPH % 33 % (24-48); MEAN CORPUSCULAR HEMOGLOBIN 26 pg (25-35); MEAN CORPUSCULAR HGB CONC 32 g/dL (31-37); MEAN CORPUSCULAR VOLUME 83 fL (79-100); MONO # 0.4 x10^3/uL (0.0-1.1); MONO % 9 % (0-9); NEUT # 2.3 x10^3uL (1.8-7.7); NEUT % 53 % (31-73); PLATELET COUNT 379 x10^3/uL (140-400); RED BLOOD COUNT 4.79 x10^6/uL (4.30-5.70); RED CELL DISTRIBUTION WIDTH 19.3 % (11.5-14.5); WHITE BLOOD COUNT 4.4 x10^3/uL (4.0-11.0)
--- NOTE | 2018-09-03 18:55 | PHYS DOC ---
Past Medical History Past Medical History: Anxiety, Kidney Stone Additional Past Medical Histor: chronic back pain due to herniated disc, irreg heart beat Past Surgical History: Appendectomy, Cholecystectomy, Tonsillectomy, Other Additional Past Surgical Histo: MULTIPLE BACK SURGERIES, LAP BAND SX, HIATAL HERNIA Alcohol Use: Occasionally Drug Use: Benzodiazepine, Opiates Adult General Chief Complaint Chief Complaint: Palpitations HPI HPI Patient is a 38 year old male with history of anxiety who presents to the ED today complaining of palpitation and episodes of dizziness that have been occurring all day today. Patient denies anything specifically making his symptoms worse or better. He states he was discharged from the hospital 2 days ago for the same complaints. He states he spoke to Dr. Patino who asked him to come to the ED to be evaluated and admitted Review of Systems Review of Systems Constitutional: Denies fever or chills [] Eyes: Denies change in visual acuity, redness, or eye pain [] HENT: Denies nasal congestion or sore throat [] Respiratory: Denies cough or shortness of breath [] Cardiovascular: Reports palpitations GI: Denies abdominal pain, nausea, vomiting, bloody stools or diarrhea [] : Denies dysuria or hematuria [] Musculoskeletal: Denies back pain or joint pain [] Integument: Denies rash or skin lesions [] Neurologic: Reports dizziness. Denies headache, focal weakness or sensory changes [] All other systems were reviewed and found to be within normal limits, except as documented in this note. Allergies Allergies Allergies Coded Allergies Type Severity Reaction Last Updated Verified Penicillins Allergy Intermediate Hives 06/26/18 Yes ketorolac Allergy Intermediate 06/26/18 Yes tramadol Allergy Intermediate 06/26/18 Yes Physical Exam Physical Exam Constitutional: Well developed, well nourished, no acute distress, non-toxic appearance. [] HENT: Normocephalic, atraumatic, bilateral external ears normal, oropharynx moist, no oral exudates, nose normal. [] Eyes: PERRLA, EOMI, conjunctiva normal, no discharge. [] Neck: Normal range of motion, no tenderness, supple, no stridor. [] Cardiovascular:Heart rate regular rhythm, no murmur [] Lungs & Thorax: Bilateral breath sounds clear to auscultation [] Abdomen: Bowel sounds normal, soft, no tenderness, no masses, no pulsatile masses. [] Skin: Warm, dry, no erythema, no rash. [] Back: No tenderness, no CVA tenderness. [] Extremities: No tenderness, no cyanosis, no clubbing, ROM intact, no edema. [] Neurologic: Alert and oriented X 3, normal motor function, normal sensory function, no focal deficits noted. [] Psychologic: Affect normal, judgement normal, mood normal. [] Current Patient Data Vital Signs Vital Signs Date Time Temp Pulse Resp B/P (MAP) Pulse Ox O2 Delivery O2 Flow Rate FiO2 09/03/18 17:24 98.5 83 20 132/89 (103) 99 Room Air 98.5 Lab Values Laboratory Tests Test 09/03/18 18:42 09/03/18 18:55 White Blood Count 4.4 x10^3/uL (4.0-11.0) Red Blood Count 4.79 x10^6/uL (4.30-5.70) Hemoglobin 12.6 g/dL (13.0-17.5) L Hematocrit 39.9 % (39.0-53.0) Mean Corpuscular Volume 83 fL (79-100) Mean Corpuscular Hemoglobin 26 pg (25-35) Mean Corpuscular Hemoglobin Concent 32 g/dL (31-37) Red Cell Distribution Width 19.3 % (11.5-14.5) H Platelet Count 379 x10^3/uL (140-400) Neutrophils (%) (Auto) 53 % (31-73) Lymphocytes (%) (Auto) 33 % (24-48) Monocytes (%) (Auto) 9 % (0-9) Eosinophils (%) (Auto) 4 % (0-3) H Basophils (%) (Auto) 1 % (0-3) Neutrophils # (Auto) 2.3 x10^3uL (1.8-7.7) Lymphocytes # (Auto) 1.4 x10^3/uL (1.0-4.8) Monocytes # (Auto) 0.4 x10^3/uL (0.0-1.1) Eosinophils # (Auto) 0.2 x10^3/uL (0.0-0.7) Basophils # (Auto) 0.0 x10^3/uL (0.0-0.2) Prothrombin Time 13.2 SEC (11.7-14.0) Prothrombin Time INR 1.0 (0.8-1.1) Sodium Level 141 mmol/L (136-145) Potassium Level 4.2 mmol/L (3.5-5.1) Chloride Level 105 mmol/L (98-107) Carbon Dioxide Level 26 mmol/L (21-32) Anion Gap 10 (6-14) Blood Urea Nitrogen 9 mg/dL (8-26) Creatinine 0.7 mg/dL (0.7-1.3) Estimated GFR (Cockcroft-Gault) 126.9 BUN/Creatinine Ratio 13 (6-20) Glucose Level 92 mg/dL (70-99) Calcium Level 8.8 mg/dL (8.5-10.1) Magnesium Level 2.2 mg/dL (1.8-2.4) Total Bilirubin 0.3 mg/dL (0.2-1.0) Aspartate Amino Transferase (AST) 13 U/L (15-37) L Alanine Aminotransferase (ALT) 14 U/L (16-63) L Alkaline Phosphatase 77 U/L (46-116) Creatine Kinase 64 U/L (39-308) Creatine Kinase MB (Mass) < 0.5 ng/mL (0.0-3.6) Creatine Kinase MB Relative Index % (0-4) Troponin I Quantitative < 0.017 ng/mL (0.000-0.055) [id number]-[id number]-Type Natriuretic Peptide 16 pg/mL (0-124) Total Protein 7.6 g/dL (6.4-8.2) Albumin 3.6 g/dL (3.4-5.0) Albumin/Globulin Ratio 0.9 (1.0-1.7) L Lipase 158 U/L (73-393) Thyroid Stimulating Hormone (TSH) 1.479 uIU/mL (0.358-3.74) Ethyl Alcohol Level < 10 mg/dL (0-10) Urine Collection Type Unknown Urine Color Yellow Urine Clarity Cloudy Urine pH 7.0 Urine Specific [place] 1.020 Urine Protein Negative mg/dL (NEG-TRACE) Urine Glucose (UA) Negative mg/dL (NEG) Urine Ketones (Stick) Negative mg/dL (NEG) Urine Blood Trace (NEG) Urine Nitrite Negative (NEG) Urine Bilirubin Negative (NEG) Urine Urobilinogen Dipstick 1.0 mg/dL (0.2 mg/dL) Urine Leukocyte Esterase Negative (NEG) Urine RBC 6-10 /HPF (0-2) Urine WBC 1-4 /HPF (0-4) Urine Squamous Epithelial Cells Occ /LPF Urine Bacteria 0 /HPF (0-FEW) Urine Mucus Mod /LPF Urine Opiates Screen Pos (NEG) Urine Methadone Screen Neg (NEG) Urine Barbiturates Neg (NEG) Urine Phencyclidine Screen Neg (NEG) Urine Amphetamine/Methamphetamine Neg (NEG) Urine Benzodiazepines Screen Pos (NEG) Urine Cocaine Screen Neg (NEG) Urine Cannabinoids Screen Neg (NEG) Urine Ethyl Alcohol Neg (NEG) Laboratory Tests 09/03/18 18:42 Laboratory Tests 09/03/18 18:42 EKG EKG 17:32 interpreted by sinus rhythm heart rate 87 no STEMI[] Radiology/Procedures Radiology/Procedures [] Course & Med Decision Making Course & Med Decision Making Pertinent Labs and Imaging studies reviewed. (See chart for details) This is a 38-year-old male patient presenting to the ED today with complaints of palpitations and dizziness since this morning. Patient was signed by the diamond powder mixer to be admitted. His workup is negative, we did not see any dysrhythmias on the monitor. I spoke to the diamond powder mixer Dr. Patino who will follow-up with patient tomorrow I spoke with Dr. Vasquez who accepted patient for admission Dragon Disclaimer Dragon Disclaimer This electronic medical record was generated, in whole or in part, using a voice recognition dictation system. Departure Departure Impression: Primary Impression: Heart palpitations Additional Impression: Dizziness Disposition: 09 ADMITTED INPATIENT Condition: STABLE Referrals: NO PCP (PCP) Problem Qualifiers HOWIE JERONIMO APRN Sep 03, 2018 18:55
[2018-09-03 19:02] LABS: PROTHROMBIN TIME PATIENT 13.2 SEC (11.7-14.0)
[2018-09-03 19:03] LABS: BILIRUBIN,URINE NEGATIVE (NEG); CLARITY,URINE CLOUDY; COLOR,URINE YELLOW; NITRITE,URINE NEGATIVE (NEG); PROTEIN,URINE NEGATIVE (NEG-TRACE)
[2018-09-03 19:07] LABS: CALCIUM 8.8 mg/dL (8.5-10.1); CREATININE 0.7 mg/dL (0.7-1.3); GFR 126.9; POTASSIUM 4.2 mmol/L (3.5-5.1)
[2018-09-03 19:08] LABS: BACTERIA,URINE 0 /HPF (0-FEW); SQUAMOUS EPITHELIAL CELL,UR OCC /LPF
[2018-09-03 19:12] LABS: ALBUMIN 3.6 g/dL (3.4-5.0); ALBUMIN/GLOBULIN RATIO 0.9 (1.0-1.7); MAGNESIUM 2.2 mg/dL (1.8-2.4); TOTAL BILIRUBIN 0.3 mg/dL (0.2-1.0); TOTAL PROTEIN 7.6 g/dL (6.4-8.2)
[2018-09-03 19:12] LABS: BARBITURATES NEG (NEG); BENZODIAZEPINES POS (NEG); CANNABINOIDS NEG (NEG); COCAINE NEG (NEG); METHADONE NEG (NEG); OPIATES POS (NEG); PHENCYCLIDINE NEG (NEG)
[2018-09-03 19:13] LABS: AMPHETAMINE/METHAMPHETAMINE NEG (NEG)
[2018-09-03 19:20] LABS: CREATINE KINASE 64 U/L (39-308)
[2018-09-03] MEDS ORDERED: fentaNYL PF VIAL 100 MCG/2 ML VIAL IV PRN (19:30)
[2018-09-03] MEDS ORDERED: ONDANSETRON PF 4 MG/2 ML VIAL. IV PRN (19:30)
[2018-09-03] MEDS ORDERED: NITROGLYCERIN SUBLINGUAL 0.4 MG BOTTLE OF 25. SL PRN (19:30)
[2018-09-03 19:58] VITALS: BP 135/86
--- NOTE | 2018-09-03 20:18 | RAD ---
AP portable chest 09/03/2018. Reason for exam: Palpitations. Comparison is made with a study of 08/28/2018. Increased lung markings appear to have cleared some. No new infiltrate or effusion is seen. Heart size is normal. IMPRESSION: No acute findings. Clearing since previous exam. Electronically signed by: Josiah Del Rosario Jr., MD (09/03/2018 8:15 PM) [facility]
[2018-09-03 22:42] VITALS: BP 104/71
[2018-09-03] MEDS: ONDANSETRON PF 4 MG/2 ML VIAL. IV PRN (22:50)
[2018-09-03] MEDS: METOPROLOL TART IMMED RELEASE 50 MG TABLET. PO SCH (22:51)
[2018-09-03] MEDS: LACTOBACILLUS RHAMNOSUS GG 1 CAPSULE. PO SCH (22:51)
[2018-09-03] MEDS: ATORVASTATIN CALCIUM 10 MG TABLET. PO SCH (22:52)
[2018-09-03] MEDS: ALPRAZolam 1 MG TABLET PO PRN (22:52)
[2018-09-03] MEDS: HYDROmorphone 2 MG/ML VIAL IVP PRN (22:53)
[2018-09-04] VITALS (8 sets, daily range): BP systolic 91–188; BP diastolic 53–156
[2018-09-04] MEDS: HYDROmorphone 2 MG/ML VIAL IVP PRN ×2 (02:16→05:22)
[2018-09-04 04:03] LABS: BASO % 1 % (0-3); EOS # 0.2 x10^3/uL (0.0-0.7); EOS % 3 % (0-3); HEMATOCRIT 37.6 % (39.0-53.0); LYMPH # 2.3 x10^3/uL (1.0-4.8); LYMPH % 42 % (24-48); MEAN CORPUSCULAR HEMOGLOBIN 27 pg (25-35); MEAN CORPUSCULAR HGB CONC 32 g/dL (31-37); MEAN CORPUSCULAR VOLUME 84 fL (79-100); MONO # 0.6 x10^3/uL (0.0-1.1); MONO % 11 % (0-9); NEUT # 2.4 x10^3uL (1.8-7.7); NEUT % 43 % (31-73); PLATELET COUNT 387 x10^3/uL (140-400); RED BLOOD COUNT 4.48 x10^6/uL (4.30-5.70); RED CELL DISTRIBUTION WIDTH 19.4 % (11.5-14.5); WHITE BLOOD COUNT 5.6 x10^3/uL (4.0-11.0)
[2018-09-04 05:43] LABS: ALBUMIN 3.4 g/dL (3.4-5.0); CALCIUM 8.5 mg/dL (8.5-10.1); CREATININE 0.7 mg/dL (0.7-1.3); GFR 126.9; POTASSIUM 4.2 mmol/L (3.5-5.1); TOTAL BILIRUBIN 0.4 mg/dL (0.2-1.0); TOTAL PROTEIN 6.9 g/dL (6.4-8.2)
--- NOTE | 2018-09-04 07:45 | PDOC1 ---
History and Physical Date of Admission Date of Admission DATE: 09/03/18 TIME: 07:34pm Identification/Chief Complaint Chief Complaint Chest pain Source Source: Chart review, Patient History of Present Illness History of Present Illness 38 yo male with history of chronic lower back pain, anxiety who presents to the ED today complaining of palpitation and episodes of dizziness that have been occurring all day yesterday. Patient denies anything specifically making his symptoms worse or better. He states he was discharged from the hospital 2 days ago for the same complaints. He states he spoke to Dr. Patino who asked him to come to the ED to be evaluated and admitted. Reports that he had a momentary chest tightness and some nausea 2 days ago otherwise no recurrence and none prior. He has had 3 falls in the last few days noting with confusion episodes per chart review per his mother bedside He does have still some palpitations but no arrhythmia has been noted in the past per event monitor and none as an inpt. No traumatic injury was noted and states fell because he lost his balance and not because of passing out. He could not tolerate CPAP because he is claustrophobic. and has been using O2 qhs 2LPM but not consistent with it. also with intermittent SOA. He has high dose dilaudid because of significant back problems. He also has been coughing yellow to green sputum lately and has had pneumonia about a month ago. He was just admitted for same last week. Patient underwent stress test, which did not identify any areas of ischemia or infarct. Patient was discharge home 08/31/18 and returned last night due to palpitation and dizziness. Patient reports nausea/vomiting began yesterday around noon. Has not been able to keep anything down including medications. Feels dizzy, lightheaded and has noticed some palpitations and diaphoresis. No chest pain, SOA, orthopnea, or PND, or LE edema. Past Medical History Cardiovascular: HTN Pulmonary: Pneumonia, Other CENTRAL NERVOUS SYSTEM: Other GI: No pertinent hx Heme/Onc: No pertinent hx Psych: Anxiety, Other Musculoskeletal: low back pain, Osteoarthritis, Other Infectious disease: No pertinent hx Past Surgical History Past Surgical History: Appendectomy, Cholecystectomy, Other Family History Family History: Diabetes Social History Smoke: No ALCOHOL: none Drugs: None Current Problem List Problem List Problems Medical Problems: (1) Heart palpitations Status: Acute Current Medications Current Medications Current Medications Ondansetron HCl (Zofran) 4 mg PRN Q8HRS PRN IV NAUSEA/VOMITING; Start 09/03/18 at 19:30; Stop 09/03/18 at 22:30; Status DC Fentanyl Citrate (Fentanyl 2ml Vial) 50 mcg PRN Q1HR PRN IV PAIN; Start at 19:30; Stop 09/04/18 at 19:29 Nitroglycerin (Nitrostat) 0.4 mg PRN Q5MIN PRN SL CHEST PAIN; Start 09/03/18 at 19:30; Stop 09/04/18 at 19:29 Aspirin (Children'S Aspirin) 81 mg DAILY PO ; Start 09/04/18 at 09:00 Atorvastatin Calcium (Lipitor) 10 mg QHS PO Last administered on 09/03/18at 22:52 ; Start 09/03/18 at 23:00 Lactobacillus Rhamnosus (Culturelle) 1 cap BID PO Last administered on at 22:51; Start 09/03/18 at 23:00 Metoprolol Tartrate (Lopressor) 75 mg BID PO Last administered on 09/03/18at 22: 51; Start 09/03/18 at 23:00 Alprazolam (Xanax) 2 mg PRN BID PRN PO ANXIETY / AGITATION Last administered on 09/03/18 22:52; Start 09/03/18 at 22:30 Hydromorphone HCl (Dilaudid) 1 mg PRN Q3HRS PRN IVP PAIN Last administered on at 05:22; Start 09/03/18 at 22:30; Stop 09/04/18 at 23:00 Ondansetron HCl (Zofran) 4 mg PRN Q4HRS PRN IV NAUSEA/VOMITING 1ST CHOICE Last administered on 09/03/18at 22:50; Start 09/03/18 at 22:30 Active Scripts Active Culturelle (Lactobacillus Rhamnosus Gg) 1 Each Cap.sprink 1 Cap PO BID 7 Days Atorvastatin Calcium 10 Mg Tablet 10 Mg PO QHS 30 Days Levaquin (Levofloxacin) 750 Mg Tablet 1 Tab PO DAILY Reported Metoprolol Tartrate 50 Mg Tablet 75 Mg PO BID Dilaudid (Hydromorphone Hcl) 4 Mg Tablet 4 Mg PO PRN Q6HRS PRN Alprazolam 2 Mg Tablet 2 Mg PO PRN BID PRN Aspirin 81 Mg Tab.chew 1 Tab PO DAILY Allergies Allergies: Coded Allergies: Penicillins (Verified Allergy, Intermediate, Hives, 06/26/18) ketorolac (Verified Allergy, Intermediate, 06/26/18) tramadol (Verified Allergy, Intermediate, 06/26/18) ROS General: YES: Fatigue, Malaise; No: Chills, Night Sweats, Appetite, Other PSYCHOLOGICAL ROS: YES: Anxiety; No: Behavioral Disorder, Concentration difficultie, Decreased libido, Depression, Disorientation, Hallucinations, Hostility, Irritablity, Memory difficulties, Mood Swings, Obsessive thoughts, Physical abuse, Sexual abuse, Sleep disturbances, Suicidal ideation, Other Eyes: No Blurry vision, No Decreased vision, No Double vision, No Dry eyes, No Excessive tearing, No Eye Pain, No Itchy Eyes, No Loss of vision, No Photophobia , No Scotomata, No Uses contacts, No Uses glasses, No Other HEENT: No: Heacaches, Visual Changes, Hearing change, Nasal congestion, Nasal discharge, Oral lesions, Sinus pain, Sore Throat, Epistaxis, Sneezing, Snoring, Tinnitus, Vertigo, Vocal changes, Other ALLERGY AND IMMUNOLOGY: No: Hives, Insect Bite Sensitivity, Itchy/Watery Eyes, Nasal Congestion, Post Nasal Drip, Seasonal Allergies, Other Hematological and Lymphatic: No: Bleeding Problems, Blood Clots, Blood Transfusions, Brusing, Night Sweats, Pallor, Swollen Lymph Nodes, Other ENDOCRINE: No: Breast Changes, Galactorrhea, Hair Pattern Changes, Hot Flashes , Malaise/lethargy, Mood Swings, Palpitations, Polydipsia/polyuria, Skin Changes , Temperature Intolerance, Unexpected Weight Changes, Other Breast: No New/Changing Breast Lumps, No Nipple changes, No Nipple discharge, No Other Respiratory: YES: Shortness of breath; No: Cough, Hemoptysis, Orthopnea, Pleuritic Pain, SOB with excertion, Sputum Changes, Stridor, Tachypnea, Wheezing, Other Cardiovascular: yes Palpitations; No Chest Pain, No Orthopnea, No Paroxysmal Noc. Dyspnea, No Edema, No Lt Headedness, No Other Gastrointestinal: Yes Nausea, Yes Vomiting, Yes Abdominal Pain; No Diarrhea, No Constipation, No Melena, No Hematochezia, No Other Genitourinary: No Dysuria, No Frequency, No Incontinence, No Hematuria, No Retention, No Discharge, No Urgency, No Pain, No Flank Pain, No Other, No , No , No , No , No , No , No Musculoskeletal: No Gait Disturbance, No Joint Pain, No Joint Stiffness, No Joint Swelling, No Muscle Pain, No Muscular Weakness, No Pain In:, No Swelling In:, No Other Neurological: No Behavorial Changes, No Bowel/Bladder ControlChng, No Confusion , No Dizziness, No Gait Disturbance, No Headaches, No Impaired Coord/balance, No Memory Loss, No Numbness/Tingling, No Seizures, No Speech Problems, No Tremors, No Visual Changes, No Weakness, No Other Skin: No Dry Skin, No Eczema, No Hair Changes, No Lumps, No Mole Changes, No Mottling, No Nail Changes, No Pruritus, No Rash, No Skin Lesion Changes, No Other, No Acne Physical Exam General: Alert, Oriented X3, Cooperative, No acute distress HEENT: Atraumatic, PERRLA, EOMI, Mucous membr. moist/pink Lungs: Clear to auscultation, Normal air movement Heart: S1S2, RRR, no gallops, no murmurs Abdomen: Normal bowel sounds, Soft, No tenderness, No hepatosplenomegaly, No masses Rectal Exam: not examined Extremities: No clubbing, No cyanosis, No edema, Normal pulses, No tenderness/ swelling Skin: No rashes, No breakdown, No significant lesion Neuro: Normal gait, Normal speech, Strength at 5/5 X4 ext, Normal tone, Sensation intact, Cranial nerves 3-12 NL, Reflexes 2+ Psych/Mental Status: Mental status NL, Mood NL Vitals Vitals Vital Signs Date Time Temp Pulse Resp B/P (MAP) Pulse Ox O2 Delivery O2 Flow Rate FiO2 09/04/18 05:52 18 95 Room Air 09/04/18 02:14 97.3 68 103/64 (77) 97.3 Labs Labs Laboratory Tests Test 09/03/18 18:42 09/03/18 18:55 09/04/18 03:00 White Blood Count 4.4 x10^3/uL (4.0-11.0) 5.6 x10^3/uL (4.0-11.0) Red Blood Count 4.79 x10^6/uL (4.30-5.70) 4.48 x10^6/uL (4.30-5.70) Hemoglobin 12.6 g/dL (13.0-17.5) 12.0 g/dL (13.0-17.5) Hematocrit 39.9 % (39.0-53.0) 37.6 % (39.0-53.0) Mean Corpuscular Volume 83 fL (79-100) 84 fL (79-100) Mean Corpuscular Hemoglobin 26 pg (25-35) 27 pg (25-35) Mean Corpuscular Hemoglobin Concent 32 g/dL (31-37) 32 g/dL (31-37) Red Cell Distribution Width 19.3 % (11.5-14.5) 19.4 % (11.5-14.5) Platelet Count 379 x10^3/uL (140-400) 387 x10^3/uL (140-400) Neutrophils (%) (Auto) 53 % (31-73) 43 % (31-73) Lymphocytes (%) (Auto) 33 % (24-48) 42 % (24-48) Monocytes (%) (Auto) 9 % (0-9) 11 % (0-9) Eosinophils (%) (Auto) 4 % (0-3) 3 % (0-3) Basophils (%) (Auto) 1 % (0-3) 1 % (0-3) Neutrophils # (Auto) 2.3 x10^3uL (1.8-7.7) 2.4 x10^3uL (1.8-7.7) Lymphocytes # (Auto) 1.4 x10^3/uL (1.0-4.8) 2.3 x10^3/uL (1.0-4.8) Monocytes # (Auto) 0.4 x10^3/uL (0.0-1.1) 0.6 x10^3/uL (0.0-1.1) Eosinophils # (Auto) 0.2 x10^3/uL (0.0-0.7) 0.2 x10^3/uL (0.0-0.7) Basophils # (Auto) 0.0 x10^3/uL (0.0-0.2) 0.0 x10^3/uL (0.0-0.2) Prothrombin Time 13.2 SEC (11.7-14.0) Prothromb Time International Ratio 1.0 (0.8-1.1) Sodium Level 141 mmol/L (136-145) 141 mmol/L (136-145) Potassium Level 4.2 mmol/L (3.5-5.1) 4.2 mmol/L (3.5-5.1) Chloride Level 105 mmol/L (98-107) 105 mmol/L (98-107) Carbon Dioxide Level 26 mmol/L (21-32) 28 mmol/L (21-32) Anion Gap 10 (6-14) 8 (6-14) Blood Urea Nitrogen 9 mg/dL (8-26) 7 mg/dL (8-26) Creatinine 0.7 mg/dL (0.7-1.3) 0.7 mg/dL (0.7-1.3) Estimated GFR (Cockcroft-Gault) 126.9 126.9 BUN/Creatinine Ratio 13 (6-20) 10 (6-20) Glucose Level 92 mg/dL (70-99) 89 mg/dL (70-99) Calcium Level 8.8 mg/dL (8.5-10.1) 8.5 mg/dL (8.5-10.1) Magnesium Level 2.2 mg/dL (1.8-2.4) Total Bilirubin 0.3 mg/dL (0.2-1.0) 0.4 mg/dL (0.2-1.0) Aspartate Amino Transf (AST/SGOT) 13 U/L (15-37) 17 U/L (15-37) Alanine Aminotransferase (ALT/SGPT) 14 U/L (16-63) 16 U/L (16-63) Alkaline Phosphatase 77 U/L (46-116) 72 U/L (46-116) Creatine Kinase 64 U/L (39-308) Creatine Kinase MB (Mass) < 0.5 ng/mL (0.0-3.6) Creatine Kinase MB Relative Index % (0-4) Troponin I Quantitative < 0.017 ng/mL (0.000-0.055) < 0.017 ng/mL (0.000-0.055) CF-Xle-T-Type Natriuretic Peptide 16 pg/mL (0-124) Total Protein 7.6 g/dL (6.4-8.2) 6.9 g/dL (6.4-8.2) Albumin 3.6 g/dL (3.4-5.0) 3.4 g/dL (3.4-5.0) Albumin/Globulin Ratio 0.9 (1.0-1.7) 1.0 (1.0-1.7) Lipase 158 U/L (73-393) Thyroid Stimulating Hormone (TSH) 1.479 uIU/mL (0.358-3.74) Ethyl Alcohol Level < 10 mg/dL (0-10) Urine Collection Type Unknown Urine Color Yellow Urine Clarity Cloudy Urine pH 7.0 Urine Specific Bellamy 1.020 Urine Protein Negative mg/dL (NEG-TRACE) Urine Glucose (UA) Negative mg/dL (NEG) Urine Ketones (Stick) Negative mg/dL (NEG) Urine Blood Trace (NEG) Urine Nitrite Negative (NEG) Urine Bilirubin Negative (NEG) Urine Urobilinogen Dipstick 1.0 mg/dL (0.2 mg/dL) Urine Leukocyte Esterase Negative (NEG) Urine RBC 6-10 /HPF (0-2) Urine WBC 1-4 /HPF (0-4) Urine Squamous Epithelial Cells Occ /LPF Urine Bacteria 0 /HPF (0-FEW) Urine Mucus Mod /LPF Urine Opiates Screen Pos (NEG) Urine Methadone Screen Neg (NEG) Urine Barbiturates Neg (NEG) Urine Phencyclidine Screen Neg (NEG) Urine Amphetamine/Methamphetamine Neg (NEG) Urine Benzodiazepines Screen Pos (NEG) Urine Cocaine Screen Neg (NEG) Urine Cannabinoids Screen Neg (NEG) Urine Ethyl Alcohol Neg (NEG) Laboratory Tests Test 09/03/18 18:42 09/03/18 18:55 09/04/18 03:00 White Blood Count 4.4 x10^3/uL (4.0-11.0) 5.6 x10^3/uL (4.0-11.0) Red Blood Count 4.79 x10^6/uL (4.30-5.70) 4.48 x10^6/uL (4.30-5.70) Hemoglobin 12.6 g/dL (13.0-17.5) 12.0 g/dL (13.0-17.5) Hematocrit 39.9 % (39.0-53.0) 37.6 % (39.0-53.0) Mean Corpuscular Volume 83 fL (79-100) 84 fL (79-100) Mean Corpuscular Hemoglobin 26 pg (25-35) 27 pg (25-35) Mean Corpuscular Hemoglobin Concent 32 g/dL (31-37) 32 g/dL (31-37) Red Cell Distribution Width 19.3 % (11.5-14.5) 19.4 % (11.5-14.5) Platelet Count 379 x10^3/uL (140-400) 387 x10^3/uL (140-400) Neutrophils (%) (Auto) 53 % (31-73) 43 % (31-73) Lymphocytes (%) (Auto) 33 % (24-48) 42 % (24-48) Monocytes (%) (Auto) 9 % (0-9) 11 % (0-9) Eosinophils (%) (Auto) 4 % (0-3) 3 % (0-3) Basophils (%) (Auto) 1 % (0-3) 1 % (0-3) Neutrophils # (Auto) 2.3 x10^3uL (1.8-7.7) 2.4 x10^3uL (1.8-7.7) Lymphocytes # (Auto) 1.4 x10^3/uL (1.0-4.8) 2.3 x10^3/uL (1.0-4.8) Monocytes # (Auto) 0.4 x10^3/uL (0.0-1.1) 0.6 x10^3/uL (0.0-1.1) Eosinophils # (Auto) 0.2 x10^3/uL (0.0-0.7) 0.2 x10^3/uL (0.0-0.7) Basophils # (Auto) 0.0 x10^3/uL (0.0-0.2) 0.0 x10^3/uL (0.0-0.2) Prothrombin Time 13.2 SEC (11.7-14.0) Prothromb Time International Ratio 1.0 (0.8-1.1) Sodium Level 141 mmol/L (136-145) 141 mmol/L (136-145) Potassium Level 4.2 mmol/L (3.5-5.1) 4.2 mmol/L (3.5-5.1) Chloride Level 105 mmol/L (98-107) 105 mmol/L (98-107) Carbon Dioxide Level 26 mmol/L (21-32) 28 mmol/L (21-32) Anion Gap 10 (6-14) 8 (6-14) Blood Urea Nitrogen 9 mg/dL (8-26) 7 mg/dL (8-26) Creatinine 0.7 mg/dL (0.7-1.3) 0.7 mg/dL (0.7-1.3) Estimated GFR (Cockcroft-Gault) 126.9 126.9 BUN/Creatinine Ratio 13 (6-20) 10 (6-20) Glucose Level 92 mg/dL (70-99) 89 mg/dL (70-99) Calcium Level 8.8 mg/dL (8.5-10.1) 8.5 mg/dL (8.5-10.1) Magnesium Level 2.2 mg/dL (1.8-2.4) Total Bilirubin 0.3 mg/dL (0.2-1.0) 0.4 mg/dL (0.2-1.0) Aspartate Amino Transf (AST/SGOT) 13 U/L (15-37) 17 U/L (15-37) Alanine Aminotransferase (ALT/SGPT) 14 U/L (16-63) 16 U/L (16-63) Alkaline Phosphatase 77 U/L (46-116) 72 U/L (46-116) Creatine Kinase 64 U/L (39-308) Creatine Kinase MB (Mass) < 0.5 ng/mL (0.0-3.6) Creatine Kinase MB Relative Index % (0-4) Troponin I Quantitative < 0.017 ng/mL (0.000-0.055) < 0.017 ng/mL (0.000-0.055) WG-Gqx-Q-Type Natriuretic Peptide 16 pg/mL (0-124) Total Protein 7.6 g/dL (6.4-8.2) 6.9 g/dL (6.4-8.2) Albumin 3.6 g/dL (3.4-5.0) 3.4 g/dL (3.4-5.0) Albumin/Globulin Ratio 0.9 (1.0-1.7) 1.0 (1.0-1.7) Lipase 158 U/L (73-393) Thyroid Stimulating Hormone (TSH) 1.479 uIU/mL (0.358-3.74) Ethyl Alcohol Level < 10 mg/dL (0-10) Urine Collection Type Unknown Urine Color Yellow Urine Clarity Cloudy Urine pH 7.0 Urine Specific Bellamy 1.020 Urine Protein Negative mg/dL (NEG-TRACE) Urine Glucose (UA) Negative mg/dL (NEG) Urine Ketones (Stick) Negative mg/dL (NEG) Urine Blood Trace (NEG) Urine Nitrite Negative (NEG) Urine Bilirubin Negative (NEG) Urine Urobilinogen Dipstick 1.0 mg/dL (0.2 mg/dL) Urine Leukocyte Esterase Negative (NEG) Urine RBC 6-10 /HPF (0-2) Urine WBC 1-4 /HPF (0-4) Urine Squamous Epithelial Cells Occ /LPF Urine Bacteria 0 /HPF (0-FEW) Urine Mucus Mod /LPF Urine Opiates Screen Pos (NEG) Urine Methadone Screen Neg (NEG) Urine Barbiturates Neg (NEG) Urine Phencyclidine Screen Neg (NEG) Urine Amphetamine/Methamphetamine Neg (NEG) Urine Benzodiazepines Screen Pos (NEG) Urine Cocaine Screen Neg (NEG) Urine Cannabinoids Screen Neg (NEG) Urine Ethyl Alcohol Neg (NEG) Images Images CXR - No acute findings. Clearing since previous exam. VTE Prophylaxis Ordered VTE Prophylaxis Devices: No VTE Pharmacological Prophylaxi: Yes Assessment/Plan Assessment/Plan A/P: Dizziness - likely high benzo dosing with concomitant opioid dosing, he is requesting IV meds. He has multiple overdose hospitalizations throughout his history. Has previously had tilt-table recommended. Normal orthostatics. Echo and event monitor previously unrevealing and stress testing not concerning last week. He feels less dizzy now. Nausea and vomiting - meds given IV for the past 24 hours due to this. possibly related to his dizziness, however he states he has an appetite, will advance diet later today Hypoxia secondary to narcotic - will d/c IV dilaudid as his chronic pain is not an indication for this, was getting it due to intractable nausea and vomiting and "fear of missing a dilaudid dose and going into withdrawal Morbid obesity BMI 38 - counseled on weight loss Toxic encephalopathy in the background of narcotic dependence-chronic narc use History of back surgeries 4-5 with staph aureus in the back (cant do back injections) Disc bulges, lumbar stenosis L2-L5 Fall with no trauma to head or neck-CT head and C-spine negative FEN - General diet PPX - SCDs FULL CODE Inpatient for intractable nausea and vomiting, will try to advance diet, appreciate cardiology recs on his palpitations DEZ IVERSON MD Sep 04, 2018 07:45
--- NOTE | 2018-09-04 08:06 | EKG ---
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
[2018-09-04] MEDS: METOPROLOL TART IMMED RELEASE 50 MG TABLET. PO SCH ×2 (09:00→21:11)
[2018-09-04] MEDS: LACTOBACILLUS RHAMNOSUS GG 1 CAPSULE. PO SCH ×2 (09:00→21:11)
[2018-09-04] MEDS: HYDROmorphone 4 MG TABLET PO PRN ×3 (09:28→21:35)
[2018-09-04] MEDS: ASPIRIN CHEWABLE 81 MG TABLET. PO SCH (09:28)
[2018-09-04] MEDS: ALPRAZolam 1 MG TABLET PO PRN ×2 (09:29→21:35)
[2018-09-04] MEDS: ONDANSETRON PF 4 MG/2 ML VIAL. IV PRN (09:29)
--- NOTE | 2018-09-04 09:45 | PDOC2 ---
CARDIAC CONSULT DATE OF CONSULT Date of Consult DATE: 09/04/18 TIME: 09:34 REASON FOR CONSULT Reason for Consult: Palpitations REFERRING PHYSICIAN Referring Physician: Charleen Gallo APRN SOURCE Source: Chart review, Patient HISTORY OF PRESENT ILLNESS HISTORY OF PRESENT ILLNESS This is a 38 to male, who was seen by our service late last week due to mildly elevated troponin level. Patient underwent stress test, which did not identify any areas of ischemia or infarct. Patient was discharge home 08/31/18 and returned last night due to palpitation and dizziness. Patient reports nausea/ vomiting began yesterday around noon. Has not been able to keep anything down including medications. Feels dizzy, lightheaded and has noticed some palpitations and diaphoresis. No chest pain, SOA, orthopnea, or PND, or LE edema. 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 Oral surgery in relation to NETTA FAMILY HISTORY Family History: Diabetes SOCIAL HISTORY Social History Smoke: No ALCOHOL: none Drugs: None Lives: with Family CURRENT MEDICATIONS CURRENT MEDICATIONS Current Medications Medications (Trade) Dose Ordered Sig/Malcolm Route PRN Reason Start Time Stop Time Status Last Admin Dose Admin Aspirin (Children'S Aspirin) 81 mg DAILY PO 09/04/18 09:00 09/04/18 09:28 Atorvastatin Calcium (Lipitor) 10 mg QHS PO 09/03/18 23:00 09/03/18 22:52 Lactobacillus Rhamnosus (Culturelle) 1 cap BID PO 09/03/18 23:00 09/03/18 22:51 Metoprolol Tartrate (Lopressor) 75 mg BID PO 09/03/18 23:00 09/03/18 22:51 Alprazolam (Xanax) 2 mg PRN BID PRN PO ANXIETY / AGITATION 09/03/18 22:30 09/04/18 09:29 Hydromorphone HCl (Dilaudid) 1 mg PRN Q3HRS PRN IVP PAIN 09/03/18 22:30 09/04/18 07:43 DC 09/04/18 05:22 Ondansetron HCl (Zofran) 4 mg PRN Q4HRS PRN IV NAUSEA/VOMITING 1ST CHOICE 09/03/18 22:30 09/04/18 09:29 Hydromorphone HCl (Dilaudid) 4 mg PRN Q6HRS PRN PO SEVERE PAIN 09/04/18 08:00 09/04/18 09:28 ALLERGIES ALLERGIES: Coded Allergies: Penicillins (Verified Allergy, Intermediate, Hives, 06/26/18) ketorolac (Verified Allergy, Intermediate, 06/26/18) tramadol (Verified Allergy, Intermediate, 06/26/18) ROS Review of System 14 point ROS conducted with pertinent positives noted above in HPI. PHYSICAL EXAM PHYSICAL EXAM General: Alert, Oriented X3, Cooperative, No acute distress HEENT: Atraumatic, Mucous membr. moist/pink Lungs: Clear to auscultation, Normal air movement Heart: Regular rate (SR), Normal S1, Normal S2, No murmurs Abdomen: Soft, No tenderness, Other (obese) Extremities: No cyanosis, No edema Skin: No breakdown, No significant lesion Neuro: Normal speech, Sensation intact Psych/Mental Status: Mental status NL, Mood NL MUSCULOSKELETAL: Osteoarthritic changes both hands VITALS VITALS Vital Signs Date Time Temp Pulse Resp B/P (MAP) Pulse Ox O2 Delivery O2 Flow Rate FiO2 09/04/18 07:40 98.0 60 16 101/74 (83) 96 Room Air 98.0 LABS Lab: Laboratory Tests Test 09/03/18 18:42 09/03/18 18:55 09/04/18 03:00 White Blood Count 4.4 x10^3/uL (4.0-11.0) 5.6 x10^3/uL (4.0-11.0) Red Blood Count 4.79 x10^6/uL (4.30-5.70) 4.48 x10^6/uL (4.30-5.70) Hemoglobin 12.6 g/dL (13.0-17.5) 12.0 g/dL (13.0-17.5) Hematocrit 39.9 % (39.0-53.0) 37.6 % (39.0-53.0) Mean Corpuscular Volume 83 fL (79-100) 84 fL (79-100) Mean Corpuscular Hemoglobin 26 pg (25-35) 27 pg (25-35) Mean Corpuscular Hemoglobin Concent 32 g/dL (31-37) 32 g/dL (31-37) Red Cell Distribution Width 19.3 % (11.5-14.5) 19.4 % (11.5-14.5) Platelet Count 379 x10^3/uL (140-400) 387 x10^3/uL (140-400) Neutrophils (%) (Auto) 53 % (31-73) 43 % (31-73) Lymphocytes (%) (Auto) 33 % (24-48) 42 % (24-48) Monocytes (%) (Auto) 9 % (0-9) 11 % (0-9) Eosinophils (%) (Auto) 4 % (0-3) 3 % (0-3) Basophils (%) (Auto) 1 % (0-3) 1 % (0-3) Neutrophils # (Auto) 2.3 x10^3uL (1.8-7.7) 2.4 x10^3uL (1.8-7.7) Lymphocytes # (Auto) 1.4 x10^3/uL (1.0-4.8) 2.3 x10^3/uL (1.0-4.8) Monocytes # (Auto) 0.4 x10^3/uL (0.0-1.1) 0.6 x10^3/uL (0.0-1.1) Eosinophils # (Auto) 0.2 x10^3/uL (0.0-0.7) 0.2 x10^3/uL (0.0-0.7) Basophils # (Auto) 0.0 x10^3/uL (0.0-0.2) 0.0 x10^3/uL (0.0-0.2) Prothrombin Time 13.2 SEC (11.7-14.0) Prothromb Time International Ratio 1.0 (0.8-1.1) Sodium Level 141 mmol/L (136-145) 141 mmol/L (136-145) Potassium Level 4.2 mmol/L (3.5-5.1) 4.2 mmol/L (3.5-5.1) Chloride Level 105 mmol/L (98-107) 105 mmol/L (98-107) Carbon Dioxide Level 26 mmol/L (21-32) 28 mmol/L (21-32) Anion Gap 10 (6-14) 8 (6-14) Blood Urea Nitrogen 9 mg/dL (8-26) 7 mg/dL (8-26) Creatinine 0.7 mg/dL (0.7-1.3) 0.7 mg/dL (0.7-1.3) Estimated GFR (Cockcroft-Gault) 126.9 126.9 BUN/Creatinine Ratio 13 (6-20) 10 (6-20) Glucose Level 92 mg/dL (70-99) 89 mg/dL (70-99) Calcium Level 8.8 mg/dL (8.5-10.1) 8.5 mg/dL (8.5-10.1) Magnesium Level 2.2 mg/dL (1.8-2.4) Total Bilirubin 0.3 mg/dL (0.2-1.0) 0.4 mg/dL (0.2-1.0) Aspartate Amino Transf (AST/SGOT) 13 U/L (15-37) 17 U/L (15-37) Alanine Aminotransferase (ALT/SGPT) 14 U/L (16-63) 16 U/L (16-63) Alkaline Phosphatase 77 U/L (46-116) 72 U/L (46-116) Creatine Kinase 64 U/L (39-308) Creatine Kinase MB (Mass) < 0.5 ng/mL (0.0-3.6) Creatine Kinase MB Relative Index % (0-4) Troponin I Quantitative < 0.017 ng/mL (0.000-0.055) < 0.017 ng/mL (0.000-0.055) IO-Cwu-E-Type Natriuretic Peptide 16 pg/mL (0-124) Total Protein 7.6 g/dL (6.4-8.2) 6.9 g/dL (6.4-8.2) Albumin 3.6 g/dL (3.4-5.0) 3.4 g/dL (3.4-5.0) Albumin/Globulin Ratio 0.9 (1.0-1.7) 1.0 (1.0-1.7) Lipase 158 U/L (73-393) Thyroid Stimulating Hormone (TSH) 1.479 uIU/mL (0.358-3.74) Ethyl Alcohol Level < 10 mg/dL (0-10) Urine Collection Type Unknown Urine Color Yellow Urine Clarity Cloudy Urine pH 7.0 Urine Specific [place] 1.020 Urine Protein Negative mg/dL (NEG-TRACE) Urine Glucose (UA) Negative mg/dL (NEG) Urine Ketones (Stick) Negative mg/dL (NEG) Urine Blood Trace (NEG) Urine Nitrite Negative (NEG) Urine Bilirubin Negative (NEG) Urine Urobilinogen Dipstick 1.0 mg/dL (0.2 mg/dL) Urine Leukocyte Esterase Negative (NEG) Urine RBC 6-10 /HPF (0-2) Urine WBC 1-4 /HPF (0-4) Urine Squamous Epithelial Cells Occ /LPF Urine Bacteria 0 /HPF (0-FEW) Urine Mucus Mod /LPF Urine Opiates Screen Pos (NEG) Urine Methadone Screen Neg (NEG) Urine Barbiturates Neg (NEG) Urine Phencyclidine Screen Neg (NEG) Urine Amphetamine/Methamphetamine Neg (NEG) Urine Benzodiazepines Screen Pos (NEG) Urine Cocaine Screen Neg (NEG) Urine Cannabinoids Screen Neg (NEG) Urine Ethyl Alcohol Neg (NEG) C-Reactive Protein, Quantitative 2.2 mg/L (0-3.3) ECHOCARDIOGRAM ECHOCARDIOGRAM <Conclusion> The left ventricular systolic function is normal. The ejection fraction is 55-60%. There is normal LV segmental wall motion. Trace mitral regurgitation. Trace tricuspid regurgitation with an estimated PAP of 30 mmHg. There is no evidence of significant pericardial effusion. DATE: 08/29/18 1629 STRESS TEST STRESS TEST Conclusion 1. No EKG evidence of stressed induced ischemia. 2. Nuclear imaging shows a normal stress scan. No evidence of reversible ischemia or infarct. 3. Normal left ventricular systolic function with ejection fraction of 69%. 4. Low to moderately low risk Lexiscan nuclear stress test. DATE: 08/30/18 1321 ASSESSMENT/PLAN ASSESSMENT/PLAN 1. Palpitations; having occasional PVCs and PACs 2. Dizziness, weakness, persistent nausea/vomiting over the last 24hrs. 3. Chronic back pain with extensive back surgeries and chronic high dose opioid use. 4. HTN: controlled 5. NETTA 6. Morbid obesity 7. Hyperlipidemia; statin Recommendations Resume Toprol for rate control Check orthostatic BP and HR Will arrange for outpatient event monitor to note arrhythmia burden. No further cardiac workup warranted at this time Supportive care LUCINA ROJAS APRN Sep 04, 2018 09:45
--- NOTE | 2018-09-04 12:26 | NUR ---
SS following for discharge planning. SS reviewed pt chart. Pt is from home with spouse and is currently on room air. No discharge needs noted at this time. SS will continue to follow for pending discharge needs.
[2018-09-04] MEDS: ONDANSETRON ODT 4 MG TAB.RAPDIS. PO PRN ×2 (15:08→21:11)
[2018-09-04] MEDS ORDERED: MECLIZINE HCL 12.5 MG TABLET. PO PRN (16:30)
--- NOTE | 2018-09-04 18:27 | NUR ---
PT reports nausea and vomitting improved with PO zofran prior to administration of PO Dilaudid. Pt was able to eat two chicken fried chicken patties and all his jello for dinner with no reports of nausea. Pt states he has no way to get into his house if discharged to [facility]. His mom has his kids and his works nights. He does not have keys to his house and cant stay at his moms house [facility]. paged waiting for call back.
[2018-09-04] MEDS: ATORVASTATIN CALCIUM 10 MG TABLET. PO SCH (21:10)
[2018-09-05 04:29] VITALS: BP 104/58
[2018-09-05 07:15] VITALS: BP 104/63
[2018-09-05] MEDS: ASPIRIN CHEWABLE 81 MG TABLET. PO SCH (07:30)
[2018-09-05] MEDS: ONDANSETRON ODT 4 MG TAB.RAPDIS. PO PRN ×2 (07:30→13:34)
[2018-09-05] MEDS: ALPRAZolam 1 MG TABLET PO PRN ×2 (07:30→19:42)
[2018-09-05] MEDS: LACTOBACILLUS RHAMNOSUS GG 1 CAPSULE. PO SCH (07:31)
[2018-09-05] MEDS: HYDROmorphone 4 MG TABLET PO PRN ×3 (07:31→19:40)
[2018-09-05] MEDS: METOPROLOL TART IMMED RELEASE 50 MG TABLET. PO SCH (07:31)
[2018-09-05 11:00] VITALS: BP 105/54
[2018-09-05] MEDS ORDERED: MECL12.52 PO (11:48)
[2018-09-05] MEDS ORDERED: ONDA4TAB7 PO (11:49)
--- NOTE | 2018-09-05 11:56 | PDOC3 ---
Discharge Summary Visit Information Date of Admission: Sep 03, 2018 Date of Discharge: Sep 05, 2018 Admitting Diagnosis: Heart palpitations, dizziness Final Diagnosis Problems Medical Problems: (1) Heart palpitations Status: Acute Brief Hospital Course Allergies Allergies Coded Allergies Type Severity Reaction Last Updated Verified Penicillins Allergy Intermediate Hives 06/26/18 Yes ketorolac Allergy Intermediate 06/26/18 Yes tramadol Allergy Intermediate 06/26/18 Yes Vital Signs Vital Signs Date Time Temp Pulse Resp B/P (MAP) Pulse Ox O2 Delivery O2 Flow Rate FiO2 09/05/18 11:00 98.0 68 18 105/54 (71) 92 Room Air 98.0 Lab Results Laboratory Tests Test 09/03/18 18:42 09/03/18 18:55 09/04/18 03:00 09/04/18 09:05 White Blood Count 4.4 x10^3/uL (4.0-11.0) 5.6 x10^3/uL (4.0-11.0) Red Blood Count 4.79 x10^6/uL (4.30-5.70) 4.48 x10^6/uL (4.30-5.70) Hemoglobin 12.6 g/dL (13.0-17.5) 12.0 g/dL (13.0-17.5) Hematocrit 39.9 % (39.0-53.0) 37.6 % (39.0-53.0) Mean Corpuscular Volume 83 fL (79-100) 84 fL (79-100) Mean Corpuscular Hemoglobin 26 pg (25-35) 27 pg (25-35) Mean Corpuscular Hemoglobin Concent 32 g/dL (31-37) 32 g/dL (31-37) Red Cell Distribution Width 19.3 % (11.5-14.5) 19.4 % (11.5-14.5) Platelet Count 379 x10^3/uL (140-400) 387 x10^3/uL (140-400) Neutrophils (%) (Auto) 53 % (31-73) 43 % (31-73) Lymphocytes (%) (Auto) 33 % (24-48) 42 % (24-48) Monocytes (%) (Auto) 9 % (0-9) 11 % (0-9) Eosinophils (%) (Auto) 4 % (0-3) 3 % (0-3) Basophils (%) (Auto) 1 % (0-3) 1 % (0-3) Neutrophils # (Auto) 2.3 x10^3uL (1.8-7.7) 2.4 x10^3uL (1.8-7.7) Lymphocytes # (Auto) 1.4 x10^3/uL (1.0-4.8) 2.3 x10^3/uL (1.0-4.8) Monocytes # (Auto) 0.4 x10^3/uL (0.0-1.1) 0.6 x10^3/uL (0.0-1.1) Eosinophils # (Auto) 0.2 x10^3/uL (0.0-0.7) 0.2 x10^3/uL (0.0-0.7) Basophils # (Auto) 0.0 x10^3/uL (0.0-0.2) 0.0 x10^3/uL (0.0-0.2) Prothrombin Time 13.2 SEC (11.7-14.0) Prothromb Time International Ratio 1.0 (0.8-1.1) Sodium Level 141 mmol/L (136-145) 141 mmol/L (136-145) Potassium Level 4.2 mmol/L (3.5-5.1) 4.2 mmol/L (3.5-5.1) Chloride Level 105 mmol/L (98-107) 105 mmol/L (98-107) Carbon Dioxide Level 26 mmol/L (21-32) 28 mmol/L (21-32) Anion Gap 10 (6-14) 8 (6-14) Blood Urea Nitrogen 9 mg/dL (8-26) 7 mg/dL (8-26) Creatinine 0.7 mg/dL (0.7-1.3) 0.7 mg/dL (0.7-1.3) Estimated GFR (Cockcroft-Gault) 126.9 126.9 BUN/Creatinine Ratio 13 (6-20) 10 (6-20) Glucose Level 92 mg/dL (70-99) 89 mg/dL (70-99) Calcium Level 8.8 mg/dL (8.5-10.1) 8.5 mg/dL (8.5-10.1) Magnesium Level 2.2 mg/dL (1.8-2.4) Total Bilirubin 0.3 mg/dL (0.2-1.0) 0.4 mg/dL (0.2-1.0) Aspartate Amino Transf (AST/SGOT) 13 U/L (15-37) 17 U/L (15-37) Alanine Aminotransferase (ALT/SGPT) 14 U/L (16-63) 16 U/L (16-63) Alkaline Phosphatase 77 U/L (46-116) 72 U/L (46-116) Creatine Kinase 64 U/L (39-308) Creatine Kinase MB (Mass) < 0.5 ng/mL (0.0-3.6) Creatine Kinase MB Relative Index % (0-4) Troponin I Quantitative < 0.017 ng/mL (0.000-0.055) < 0.017 ng/mL (0.000-0.055) WS-Fwz-Z-Type Natriuretic Peptide 16 pg/mL (0-124) Total Protein 7.6 g/dL (6.4-8.2) 6.9 g/dL (6.4-8.2) Albumin 3.6 g/dL (3.4-5.0) 3.4 g/dL (3.4-5.0) Albumin/Globulin Ratio 0.9 (1.0-1.7) 1.0 (1.0-1.7) Lipase 158 U/L (73-393) Thyroid Stimulating Hormone (TSH) 1.479 uIU/mL (0.358-3.74) Ethyl Alcohol Level < 10 mg/dL (0-10) Urine Collection Type Unknown Urine Color Yellow Urine Clarity Cloudy Urine pH 7.0 Urine Specific [place] 1.020 Urine Protein Negative mg/dL (NEG-TRACE) Urine Glucose (UA) Negative mg/dL (NEG) Urine Ketones (Stick) Negative mg/dL (NEG) Urine Blood Trace (NEG) Urine Nitrite Negative (NEG) Urine Bilirubin Negative (NEG) Urine Urobilinogen Dipstick 1.0 mg/dL (0.2 mg/dL) Urine Leukocyte Esterase Negative (NEG) Urine RBC 6-10 /HPF (0-2) Urine WBC 1-4 /HPF (0-4) Urine Squamous Epithelial Cells Occ /LPF Urine Bacteria 0 /HPF (0-FEW) Urine Mucus Mod /LPF Urine Opiates Screen Pos (NEG) Urine Methadone Screen Neg (NEG) Urine Barbiturates Neg (NEG) Urine Phencyclidine Screen Neg (NEG) Urine Amphetamine/Methamphetamine Neg (NEG) Urine Benzodiazepines Screen Pos (NEG) Urine Cocaine Screen Neg (NEG) Urine Cannabinoids Screen Neg (NEG) Urine Ethyl Alcohol Neg (NEG) C-Reactive Protein, Quantitative 2.2 mg/L (0-3.3) Erythrocyte Sedimentation Rate 8 (0-15) Brief Hospital Course 38 yo male with history of chronic lower back pain, anxiety who presents to the ED today complaining of palpitation and episodes of dizziness that have been occurring all day yesterday. Patient denies anything specifically making his symptoms worse or better. He states he was discharged from the hospital 2 days ago for the same complaints. He states he spoke to Dr. Patino who asked him to come to the ED to be evaluated and admitted. Reports that he had a momentary chest tightness and some nausea 2 days ago otherwise no recurrence and none prior. He has had 3 falls in the last few days noting with confusion episodes per chart review per his mother bedside He does have still some palpitations but no arrhythmia has been noted in the past per event monitor and none as an inpt. No traumatic injury was noted and states fell because he lost his balance and not because of passing out. He could not tolerate CPAP because he is claustrophobic. and has been using O2 qhs 2LPM but not consistent with it. also with intermittent SOA. He has high dose dilaudid because of significant back problems. He also has been coughing yellow to green sputum lately and has had pneumonia about a month ago. CXR showed improving infiltrate. He was just admitted for same last week. Patient underwent stress test, which did not identify any areas of ischemia or infarct. Patient was discharge home 08/31/18 and returned last night due to palpitation and dizziness. Patient reports nausea/vomiting began yesterday around noon. Has not been able to keep anything down including medications. Feels dizzy, lightheaded and has noticed some palpitations and diaphoresis. No chest pain, SOA, orthopnea, or PND, or LE edema. He required IV zofran and requested IV dilaudid to "replace" his oral. Noted his nausea and vomiting improved with IV zofran and his dizziness did as well. Had a long discussion about not replacing oral dilaudid with IV dilaudid. Unfortunately he likely needs a longer discussion about his medications as well as home problems with childcare. PE General: Alert, Oriented X3, Cooperative, No acute distress HEENT: Atraumatic, PERRLA, EOMI, Mucous membr. moist/pink Lungs: Clear to auscultation, Normal air movement Heart: S1S2, RRR, no gallops, no murmurs Abdomen: Normal bowel sounds, Soft, No tenderness, No hepatosplenomegaly, No masses Rectal Exam: not examined Extremities: No clubbing, No cyanosis, No edema, Normal pulses, No tenderness/ swelling Skin: No rashes, No breakdown, No significant lesion Neuro: Normal gait, Normal speech, Strength at 5/5 X4 ext, Normal tone, Sensation intact, Cranial nerves 3-12 NL, Reflexes 2+ Psych/Mental Status: Mental status NL, Mood NL Greater than 30 minutes spent on d/c including coordination of follow up Discharge Information Condition at Discharge: Improved Follow Up: Weeks (2) Disposition/Orders: D/C to Home Scheduled Aspirin (Aspirin) 81 Mg Tab.chew, 1 TAB PO DAILY for blood thinner, #30 Ref 3 ( Reported) Entered as Reported by: VESNA SERNA on 06/07/182323 Last Action: Continued on 09/03/182218 by Loopd ViaS Atorvastatin Calcium (Atorvastatin Calcium) 10 Mg Tablet, 10 MG PO QHS for dyslipidemia for 30 Days, #30 Prescribed by: VIVI POSADAS MD on 08/31/18 1300 Last Action: Continued on 09/03/182218 by Loopd ViaS Lactobacillus Rhamnosus Gg (Culturelle) 1 Each Cap.sprink, 1 CAP PO BID for probiotic for 7 Days, #14 Prescribed by: VIVI POSADAS MD on 08/31/18 1300 Last Action: Continued on 09/03/182218 by Loopd ViaS Metoprolol Tartrate (Metoprolol Tartrate) 50 Mg Tablet, 75 MG PO BID for FOR HYPERTENSION, #60 Ref 0 (Reported) Entered as Reported by: CARL HILL on 08/31/18 1553 Last Action: Continued on 09/03/182218 by MIRIAM THOMAS Ondansetron Hcl (Zofran) 4 Mg Tablet, 1 TAB PO Q6HRS for nausea/dizziness for 30 Days, #120 Prescribed by: DEZ IVERSON MD on 09/05/18 1149 Scheduled PRN Alprazolam (Alprazolam) 2 Mg Tablet, 2 MG PO PRN BID PRN for ANXIETY / AGITATION , Ref 0 (Reported) Entered as Reported by: CARL WILKINS RPH on 07/22/18727 Last Action: Converted on 09/03/182218 by MIRIAM THOMAS Hydromorphone Hcl (Dilaudid) 4 Mg Tablet, 4 MG PO PRN Q6HRS PRN for PAIN, ( Reported) Entered as Reported by: CARL WILKINS RPH on 07/22/18729 Last Action: Converted on 09/04/18742 by DEZ IVERSON MD Meclizine Hcl (Meclizine Hcl) 12.5 Mg Tablet, 12.5 MG PO PRN Q6HRS PRN for DIZZINESS for 30 Days, #60 Prescribed by: DEZ IVERSON MD on 09/05/18 1148 Discontinued Medications Levofloxacin (Levaquin) 750 Mg Tablet, 1 TAB PO DAILY for pna, #6 Prescribed by: ABDELRAHMAN JOSEPH MD on 07/23/18 1459 Metoprolol Tartrate (Metoprolol Tartrate) 50 Mg Tablet, 1 TAB PO BID for hypertension, #60 Ref 5 (Reported) Entered as Reported by: VESNA SERNA on 06/07/18 6350 DEZ IVERSON MD Sep 05, 2018 11:56
[2018-09-05 15:00] VITALS: BP 100/40
== END 2018-09-05 20:43 | disposition home or self-care (01) | DRG 917 ==
LOC: ER 17:13 → 2 SOUTH 19:04
PROVIDERS: ADMIT Family Medicine; ATTEND Family Medicine
DX: T40.601A Poisoning by unspecified narcotics, accidental (unintentional), initial encounter (principal); G92 Toxic encephalopathy; I49.3 Ventricular premature depolarization; F41.9 Anxiety disorder, unspecified; E66.01 Morbid (severe) obesity due to excess calories; E78.5 Hyperlipidemia, unspecified; G47.33 Obstructive sleep apnea (adult) (pediatric); G89.29 Other chronic pain; I10 Essential (primary) hypertension; I48.91 Unspecified atrial fibrillation; R09.02 Hypoxemia; Z68.38 Body mass index [BMI] 38.0-38.9, adult; Z83.3 Family history of diabetes mellitus; Z79.899 Other long term (current) drug therapy; Z87.442 Personal history of urinary calculi; Z90.49 Acquired absence of other specified parts of digestive tract; Z87.01 Personal history of pneumonia (recurrent); Z88.0 Allergy status to penicillin; Z88.8 Allergy status to other drugs, medicaments and biological substances; Y92.89 Other specified places as the place of occurrence of the external cause
CPT/HCPCS: 36415; 71045; 80053; 80307; 81001; 82553; 83690; 83735; 83880; 84443; 84484; 85025; 85610; 85651; 86140; 93005; G0480; J1170; J2405; J8597; Q0162; 99285-25

== ENCOUNTER 2018-11-13 07:42 | Observation (INO) | payer OTHER ==
[~2018-11-13] VITALS: Ht 177.8 cm; Wt 133.5 kg
[~2018-11-13 07:42] MED LIST changes: +HYDROmorphone 2 MG/ML VIAL IV PRN; +IV RINGERS,LACTATED 1000ML 1,000 ML IV SCH; +LIDOCAINE 1% PF 2 ML VIAL. ID PRN; +MECL12.52 PO; +MORPHINE SULFATE 2 MG/ML VIAL. IV PRN; +ONDA4TAB7 PO; +ONDANSETRON PF 4 MG/2 ML VIAL. IV PRN; +VANCOMYCIN 1GM IVPB FOR OMNI 250 ML IV PRN; +fentaNYL PF VIAL 100 MCG/2 ML VIAL IV PRN
[2018-11-13] MEDS ORDERED: PROPOFOL 20 ML IV ONE (08:36)
[2018-11-13] MEDS ORDERED: FAMOTIDINE 20 MG/2 ML VIAL ONE (08:37)
[2018-11-13] MEDS ORDERED: LIDOCAINE 2% PF 5 ML VIAL. ONE (08:37)
[2018-11-13] MEDS ORDERED: MIDAZOLAM HCL/PF 2 MG/2 ML VIAL. ONE (08:37)
[2018-11-13] MEDS ORDERED: fentaNYL PF VIAL 100 MCG/2 ML VIAL ONE (08:37)
[2018-11-13] MEDS ORDERED: SUCCINYLCHOLINE 200 MG/10 ML VIAL. ONE ×2 (08:38→09:59)
[2018-11-13] MEDS ORDERED: ROCURONIUM 50 MG/5 ML VIAL. ONE (08:39)
[2018-11-13] MEDS ORDERED: LIDOCAINE 1%/EPI 1:100,000 20 ML VIAL. ONE (08:58)
[2018-11-13] MEDS ORDERED: DEXAMETHASONE SOD PHOS 4 MG/ML VIAL ONE (10:04)
[2018-11-13] MEDS ORDERED: GLYCOPYRROLATE 1 MG/5 ML VIAL. ONE (10:50)
[2018-11-13] MEDS ORDERED: NEOSTIGMINE METHYLSULFATE 5 MG/5 ML SYRINGE. ONE (10:50)
[2018-11-13] MEDS ORDERED: SEVOFLURANE 61 TO 120 MINUTES. IH ONE (11:34)
--- NOTE | 2018-11-13 11:41 | PDOC4 ---
Operative Note Operative Note Operative Note: Preoperative Diagnosis: Left lower back mass Postoperative Diagnosis: Same Procedure: Excision of left lower back mass Surgeon: [employer] Associate: Elizabeth LEONARD Anesthesia: Gen. 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 He is interested in surgical excision. The details and risks of surgery were noted. The risks include bleeding, infection, scar tissue, pain, wound healing problems, recurrence, potential need for additional surgery or procedure. He understands and would like to proceed. Description: The patient was taken to the operating room and placed supine on the operating table. Gen. anesthesia was performed. He was then rolled with his left side up on the operating table. The left lower back was prepped with ChloraPrep and draped in a standard surgical manner. An incision was made in the left lower back overlying the palpable area. Cautery dissection was carried down to the subcutaneous tissue. The palpable mass appeared to consist of a multilobular collection of adipose tissue mixed with old scar. The palpable adipose tissue was quite extensive going down to the level of the muscle. With primarily cautery a portion of the scar in all of the palpable adipose tissue was mobilized from the surrounding tissues. A few small bleeding spots were readily controlled with cautery. The fatty tissue was removed in a few lobules and in combination measured 9 x 9 cm. The specimen was sent to pathology for evaluation. Further inspection showed some normal-appearing surrounding fatty tissue with some additional scar due to prior lower back procedures. No other gross abnormalities were identified. The subcutaneous tissue was closed with 3- 0 Vicryl. The skin was closed with 4-0 Monocryl. A sterile dressing was then applied. The patient tolerated the procedure well and was sent to the recovery room in stable condition. At the end of the case all counts were correct. SUN ULLOA MD November 13, 2018 11:41
[2018-11-13] MEDS ORDERED: 0.9 % SODIUM CHLORIDE 10 ML DISP.SYRIN. IV PRN (11:45)
[2018-11-13] MEDS ORDERED: ONDANSETRON PF 4 MG/2 ML VIAL. IV PRN (11:45)
[2018-11-13] MEDS ORDERED: oxyCODONE/APAP 5/325 1 TAB TABLET PO PRN ×2 (11:45)
[2018-11-13] MEDS: PROCHLORPERAZINE 10 MG/2 ML VIAL. IV PRN ×2 (11:47→12:04)
[2018-11-13] MEDS: fentaNYL PF VIAL 100 MCG/2 ML VIAL IV PRN ×2 (11:48→12:05)
[2018-11-13 14:00] VITALS: BP 132/86
[2018-11-13] MEDS: ALPRAZolam 1 MG TABLET PO PRN ×2 (14:14→20:46)
[2018-11-13] MEDS: METOPROLOL TART IMMED RELEASE 50 MG TABLET. PO SCH ×2 (14:14→22:30)
[2018-11-13] MEDS: HYDROmorphone 2 MG/ML VIAL IV PRN ×3 (14:15→18:29)
[2018-11-13 15:00] VITALS: BP 132/83
[2018-11-13 19:00] VITALS: BP 124/69
[2018-11-13] MEDS: HYDROmorphone 4 MG TABLET PO PRN (22:31)
[2018-11-13 23:00] VITALS: BP 119/69
[2018-11-14] MEDS: HYDROmorphone 4 MG TABLET PO PRN ×3 (02:30→10:50)
[2018-11-14 03:00] VITALS: BP 120/84
[2018-11-14] MEDS: ALPRAZolam 1 MG TABLET PO PRN ×2 (04:35→11:49)
[2018-11-14 07:00] VITALS: BP 131/75
--- NOTE | 2018-11-14 08:29 | PDOC ---
AKUA KHAN APRN 11/14/18 0829: SURGICAL PROGRESS NOTE Subjective incisional pain tolerating diet reports ambulating worried temp 99 Vital Signs Vital Signs Date Time Temp Pulse Resp B/P (MAP) Pulse Ox O2 Delivery O2 Flow Rate FiO2 11/14/18 03:00 98.1 86 18 120/84 (96) 92 Room Air 98.1 11/13/18 20:00 2.0 I&O Intake and Output 11/14/18 06:59 Intake Total 2880 ml Output Total 1050 ml Balance 1830 ml Intake Oral 1680 ml IV Total 1200 ml Output Urine Total 1000 ml Estimated Blood Loss 50 ml # Voids 3 General: Alert, Oriented X3, Cooperative, No acute distress Skin: Other (incision c/d/i, no erythema) Assessment/Plan s/p back excision dc home chronic pain meds at home per pt SUN ULLOA MD 11/14/18 0955: SURGICAL PROGRESS NOTE Assessment/Plan Agree with above AKUA KHAN APRN November 14, 2018 08:29 SUN ULLOA MD November 14, 2018 09:55
[2018-11-14] MEDS: METOPROLOL TART IMMED RELEASE 50 MG TABLET. PO SCH (08:55)
[2018-11-14] MEDS ORDERED: ASPIRIN CHEWABLE 81 MG TABLET. PO SCH (09:00)
--- NOTE | 2018-11-14 09:03 | DISCH ---
DISCHARGE INSTRUCTIONS Condition on Discharge Condition on Discharge: Stable Activity After Discharge Activity Instructions for Disc: Resume previous activity, Activity as tolerated Exercise Instruction after Dis: Walk 30 min, 5 x per week, Progress as tolerated Driving Instructions after Dis: Do not drive today Weight Bearing Status after Di: No restrictions Diet after Discharge Diet after Discharge: Regular Wound Incision Care Other wound/incision instructi: can remove dressing tomorrow and shower, ok to leave uncovered Contacting the DRDinah after DC Call your doctor for: Concerns you may have (D) Follow-Up Follow up with: Dr Major 2 weeks, call to schedule [phone] Treatment/Equipment after DC Adaptive Equipment Issued: None AKUA KHAN APRN November 14, 2018 09:03
[2018-11-14 11:00] VITALS: BP 105/51
--- NOTE | 2018-11-14 12:32 | NUR ---
Patient was discharged from the facility at 1210. Patient left the unit ambulatory, escorted by staff and with his belongings and discharge paperwork. Discharge paperwork was discussed with the patient prior to discharge and he had no questions or concerns regarding the information
--- NOTE | 2018-11-15 17:07 | PATHOLOGY ---
[facility] Accession Number: [id number] . 01 Material submitted: . flank - LEFT FLANK MASS. Modifiers: left . 01 Clinical history: . Left flank mass . 02 Diagnosis: Segments of fibroadipose tissue, left flank mass: - Lipoma. LBQ/11/15/2018 . 02 Comment: There is no evidence of malignancy. (JPM/db; 11/15/2018) . 02 Electronically signed: . Tavo Hopkins MD, Pathologist NPI- [id number] . 01 Gross description: . The specimen is received in formalin, labeled "[place], left flank mass per problem specimen form" and consists of multiple irregular and disrupted segments of yellow lobulated tissue measuring 10.5 x 8.4 x 3.3 cm in aggregate. Sectioning reveals a focus of fibrous pink-noriega tissue and no gross lesions. Ass[employer] Am[employer] Officer sections are submitted in A1-A3. (SDY; 11/14/2018) SYU/SYU . 02 Pathologist provided ICD-10: D17.1 . 02 CPT . 682865 Specimen Comment: A courtesy copy of this report has been sent to Specimen Comment: [phone], . Specimen Comment: Report sent to / DR WRIGHT Performed at: 01 [facility] [address], [place], [place] [id number] MD Stan Purdy MD Phone: [phone] Performed at: [facility] [address] [place], [place] [id number] MD Tavo Hopkins MD Phone: [phone]
--- NOTE | 2018-11-17 10:59 | PDOC3 ---
Discharge Summary Visit Information Date of Admission: November 13, 2018 Date of Discharge: November 14, 2018 Admitting Diagnosis: Left lower back mass Final Diagnosis Left lower back mass Brief Hospital Course Allergies Allergies Coded Allergies Type Severity Reaction Last Updated Verified Penicillins Allergy Intermediate Hives 11/13/18 Yes ketorolac Allergy Intermediate 11/13/18 Yes tramadol Allergy Intermediate 11/13/18 Yes Brief Hospital Course Mr. Kinney is a 38 old male who underwent excision of a back mass. Postoperatively pain controlled, tolerating diet, and stable for discharge home Discharge Information Condition at Discharge: Stable Follow Up: Weeks Disposition/Orders: D/C to Home Scheduled Aspirin (Aspirin) 81 Mg Tab.chew, 1 TAB PO DAILY for blood thinner, #30 Ref 3 (Reported) Entered as Reported by: VESNA SERNA on 06/07/184 Last Taken: Unknown Dose on 10/30/18 Last Action: Continued on 11/13/181134 by SUN ULLOA Metoprolol Tartrate (Metoprolol Tartrate) 50 Mg Tablet, 75 MG PO BID for FOR HYPERTENSION, #60 Ref 0 (Reported) Entered as Reported by: CARL HILL on 08/31/18 1553 Last Taken: Unknown Dose on 11/12/18 1800 Last Action: Continued on 11/13/18 113 by SUN ULLOA Scheduled PRN Alprazolam (Alprazolam) 2 Mg Tablet, 2 MG PO PRN TID PRN for ANXIETY / AGITATION, Ref 0 (Reported) Entered as Reported by: CARL WILKINS RPH on 07/22/18 0728 Last Taken: Unknown Dose on 11/13/18 0600 Last Action: Converted on 11/13/18 113 by SUN ULLOA Hydromorphone Hcl (Dilaudid) 4 Mg Tablet, 4 MG PO PRN Q4HRS PRN for PAIN, (Reported) Entered as Reported by: CARL WILKINS RPH on 07/22/18 0730 Last Taken: Unknown Dose on 11/12/18 1800 Last Action: HELD on 11/13/18 11 35 by AKUA LUNA APRN November 17, 2018 10:59
== END 2018-11-14 12:10 | disposition home or self-care (01) ==
LOC: SURG 07:42 → 5 NORTH 12:47
PROVIDERS: ADMIT Surgery; ATTEND Surgery
DX: R22.2 Localized swelling, mass and lump, trunk (principal); E66.9 Obesity, unspecified; F98.8 Other specified behavioral and emotional disorders with onset usually occurring in childhood and adolescence; F41.1 Generalized anxiety disorder; G89.4 Chronic pain syndrome; M47.9 Spondylosis, unspecified; Z98.890 Other specified postprocedural states
CPT/HCPCS: 21933; 88304; 96374; 96376; A7015; G0378; G0379; J0780; J1100; J1170; J2001; J2250; J2704; J2710; J3010; J3370; J3490; J7120; J0330

== ENCOUNTER 2018-11-22 18:11 | Inpatient (IN) | payer OTHER ==
[~2018-11-22] VITALS: Ht 177.8 cm; Wt 136.2 kg
[~2018-11-22 18:11] MED LIST changes: -HYDROmorphone 2 MG/ML VIAL IV PRN; -IV RINGERS,LACTATED 1000ML 1,000 ML IV SCH; -LIDOCAINE 1% PF 2 ML VIAL. ID PRN; -MORPHINE SULFATE 2 MG/ML VIAL. IV PRN; -ONDANSETRON PF 4 MG/2 ML VIAL. IV PRN; -VANCOMYCIN 1GM IVPB FOR OMNI 250 ML IV PRN; -fentaNYL PF VIAL 100 MCG/2 ML VIAL IV PRN
[2018-11-22] MEDS ORDERED: IV NORMAL SALINE 1000ML BAG 1,000 ML IV SCH ×2 (18:21→22:00)
--- NOTE | 2018-11-22 18:41 | PHYS DOC ---
Past Medical History Past Medical History: Anxiety, Kidney Stone Additional Past Medical Histor: chronic back pain due to herniated disc, irreg heart beat Past Surgical History: Appendectomy, Cholecystectomy, Tonsillectomy, Other Additional Past Surgical Histo: MULTIPLE BACK SURGERIES, LAP BAND SX, HIATAL HERNIA Alcohol Use: Occasionally Drug Use: Benzodiazepine, Opiates Adult General Chief Complaint Chief Complaint: OVERDOSE HPI HPI Patient is a 38-year-old male who presents via EMS after reportedly being found down by his , lying on the floor. reportedly was not able to feel a pulse and initiated CPR. Patient was also given a dose of Narcan by his . Patient reportedly has a history of numerous overdoses of his pain medication. He is on Dilaudid and Xanax at home. Medics indicate that by the time they had arrived, patient was breathing approximately 2 breaths per minute and O2 sats were in the mid 50s. Patient at this time is awake and alert and stated that he does not want any intervention and wants to be released home. He denies having made an attempt on his life. He also denies having taken an overdose of his medication. Patient had also told paramedics that he did not want to be transported to the emergency room, and that he wanted to be left at home. Additional history is difficult to obtain as patient is a difficult historian.[] Review of Systems Review of Systems Constitutional: Denies fever or chills [] Respiratory: Denies cough or shortness of breath [] Cardiovascular: No additional information not addressed in HPI [] GI: Denies abdominal pain, nausea, vomiting or diarrhea [] Musculoskeletal: Reports chronic back pain [] Neurologic: Denies headache, focal weakness or sensory changes [] Psychiatric: Denies suicidal ideation or attempt[] All other systems were reviewed and found to be within normal limits, except as documented in this note. Current Medications Current Medications Current Medications Medications (Trade) Dose Ordered Sig/Malcolm Start Time Stop Time Status Last Admin Dose Admin Sodium Chloride 1,000 ml @ 1,000 mls/hr Q1H 11/22/18 18:21 11/22/18 19:20 DC 11/22/18 18:21 1,000 MLS/HR Allergies Allergies Allergies Coded Allergies Type Severity Reaction Last Updated Verified Penicillins Allergy Intermediate Hives 11/13/18 Yes ketorolac Allergy Intermediate 11/13/18 Yes tramadol Allergy Intermediate 11/13/18 Yes Physical Exam Physical Exam Constitutional: Well developed, well nourished, no acute distress, non-toxic appearance. [] HENT: Normocephalic, atraumatic, bilateral external ears normal, oropharynx moist, no oral exudates, nose normal. [] Eyes: Pupils are 2 mm and sluggish to light, conjunctiva normal, no discharge. [] Neck: Normal range of motion, no tenderness, supple, no stridor. [] Cardiovascular: Regular rate and rhythm[] Lungs & Thorax: Bilateral breath sounds clear to auscultation [] Abdomen: Bowel sounds normal, soft, no tenderness. [] Skin: Warm, dry, no erythema, no rash. [] Extremities: No tenderness, no cyanosis, no clubbing, ROM intact, no edema. [] Neurologic: Awake but appears somnolent with slurred speech, otherwise no focal deficits noted. [] Psychologic: Flattened affect with depressed mood. [] Current Patient Data Vital Signs Vital Signs Date Time Temp Pulse Resp B/P (MAP) Pulse Ox O2 Delivery O2 Flow Rate FiO2 11/22/18 18:12 97.6 85 20 144/60 (88) 94 Room Air 97.6 Lab Values Laboratory Tests Test 11/22/18 20:30 White Blood Count 17.2 x10^3/uL (4.0-11.0) H Red Blood Count 4.92 x10^6/uL (4.30-5.70) Hemoglobin 14.0 g/dL (13.0-17.5) Hematocrit 43.7 % (39.0-53.0) Mean Corpuscular Volume 89 fL (79-100) Mean Corpuscular Hemoglobin 28 pg (25-35) Mean Corpuscular Hemoglobin Concent 32 g/dL (31-37) Red Cell Distribution Width 17.1 % (11.5-14.5) H Platelet Count 276 x10^3/uL (140-400) Neutrophils (%) (Auto) 90 % (31-73) H Lymphocytes (%) (Auto) 4 % (24-48) L Monocytes (%) (Auto) 6 % (0-9) Eosinophils (%) (Auto) 0 % (0-3) Basophils (%) (Auto) 0 % (0-3) Neutrophils # (Auto) 15.5 x10^3uL (1.8-7.7) H Lymphocytes # (Auto) 0.7 x10^3/uL (1.0-4.8) L Monocytes # (Auto) 1.0 x10^3/uL (0.0-1.1) Eosinophils # (Auto) 0.1 x10^3/uL (0.0-0.7) Basophils # (Auto) 0.0 x10^3/uL (0.0-0.2) Segmented Neutrophils % 72 % (35-66) H Band Neutrophils % 16 % (0-9) H Lymphocytes % 8 % (24-48) L Monocytes % 4 % (0-10) Platelet Estimate Adequate (ADEQUATE) Urine Collection Type Unknown Urine Color Yellow Urine Clarity Clear Urine pH 5.5 Urine Specific [place] 1.015 Urine Protein Negative mg/dL (NEG-TRACE) Urine Glucose (UA) 100 mg/dL (NEG) Urine Ketones (Stick) Negative mg/dL (NEG) Urine Blood Negative (NEG) Urine Nitrite Negative (NEG) Urine Bilirubin Negative (NEG) Urine Urobilinogen Dipstick 1.0 mg/dL (0.2 mg/dL) Urine Leukocyte Esterase Negative (NEG) Urine RBC Rare /HPF (0-2) Urine WBC Rare /HPF (0-4) Urine Squamous Epithelial Cells Occ /LPF Urine Bacteria 0 /HPF (0-FEW) Urine Hyaline Casts Few /HPF Urine Mucus Mod /LPF Sodium Level 138 mmol/L (136-145) Potassium Level 4.4 mmol/L (3.5-5.1) Chloride Level 98 mmol/L (98-107) Carbon Dioxide Level 30 mmol/L (21-32) Anion Gap 10 (6-14) Blood Urea Nitrogen 16 mg/dL (8-26) Creatinine 1.3 mg/dL (0.7-1.3) Estimated GFR (Cockcroft-Gault) 62.1 Glucose Level 55 mg/dL (70-99) L Calcium Level 9.1 mg/dL (8.5-10.1) Magnesium Level 2.0 mg/dL (1.8-2.4) Total Bilirubin 1.1 mg/dL (0.2-1.0) H Direct Bilirubin 0.4 mg/dL (0.0-0.2) H Aspartate Amino Transferase (AST) 102 U/L (15-37) H Alanine Aminotransferase (ALT) 1070 U/L (16-63) H Alkaline Phosphatase 112 U/L (46-116) Creatine Kinase 146 U/L (39-308) Total Protein 8.7 g/dL (6.4-8.2) H Albumin 4.2 g/dL (3.4-5.0) Salicylates Level < 2.8 mg/dL (2.8-20.0) L Salicylate Last Dose Date Unk Salicylate Last Dose Time Unk Urine Opiates Screen Pos (NEG) Urine Methadone Screen Neg (NEG) Acetaminophen Level < 2 mcg/ml (10-30) L Acetaminophen Last Dose Date Unk Acetaminophen Last Dose Time Unk Urine Barbiturates Neg (NEG) Urine Phencyclidine Screen Neg (NEG) Urine Amphetamine/Methamphetamine Neg (NEG) Urine Benzodiazepines Screen Pos (NEG) Urine Cocaine Screen Neg (NEG) Urine Cannabinoids Screen Neg (NEG) Ethyl Alcohol Level < 10 mg/dL (0-10) Urine Ethyl Alcohol Neg (NEG) Laboratory Tests 11/22/18 20:30 Laboratory Tests 11/22/18 20:30 EKG EKG [] Interpretation Time: EKG demonstrates normal sinus rhythm with rate of 87. Radiology/Procedures Radiology/Procedures [] Impressions: PROCEDURE: PORTABLE CHEST 1V Indication:Status post CPR. TECHNIQUE:Portable AP chest X-ray COMPARISON: None FINDINGS: Heart is normal in size. Bilateral prominent bronchial markings are seen. No focal consolidation. No pneumothorax or pleural effusion. Visualized bony thorax within normal limits. IMPRESSION: Prominent bilateral bronchovascular markings may be secondary to peribronchial edema or bronchitis. Electronically signed by: Suraj Montoya DO (11/22/2018 7:03 PM) [facility] Course & Med Decision Making Course & Med Decision Making Pertinent Labs and Imaging studies reviewed. (See chart for details) [] Dragon Disclaimer Dragon Disclaimer This electronic medical record was generated, in whole or in part, using a voice recognition dictation system. Departure Departure Impression: Primary Impression: Opiate overdose Additional Impressions: Elevated ALT measurement Leukocytosis Disposition: ADMITTED INPATIENT Admitting Physician: Other (Dr. Unger) Condition: IMPROVED Referrals: LEXA WRIGHT MD (PCP) Problem Qualifiers Primary Impression: Opiate overdose Encounter type: initial encounter Injury intent: accidental or unintentional Qualified Codes: T40.601A - Poisoning by unspecified narcot ics, accidental (unintentional), initial encounter Additional Impressions: Leukocytosis Leukocytosis type: bandemia Qualified Codes: D72.825 - Bandemia HUMPHREY REED Jr. DO November 22, 2018 18:41
--- NOTE | 2018-11-22 19:06 | RAD ---
Indication:Status post CPR. TECHNIQUE:Portable AP chest X-ray COMPARISON: None FINDINGS: Heart is normal in size. Bilateral prominent bronchial markings are seen. No focal consolidation. No pneumothorax or pleural effusion. Visualized bony thorax within normal limits. IMPRESSION: Prominent bilateral bronchovascular markings may be secondary to peribronchial edema or bronchitis. Electronically signed by: Suraj Montoya DO (11/22/2018 7:03 PM) [facility]
[2018-11-22 20:57] LABS: BASO % 0 % (0-3); BILIRUBIN,URINE NEGATIVE (NEG); CLARITY,URINE CLEAR; COLOR,URINE YELLOW; EOS # 0.1 x10^3/uL (0.0-0.7); EOS % 0 % (0-3); HEMATOCRIT 43.7 % (39.0-53.0); LYMPH # 0.7 x10^3/uL (1.0-4.8); LYMPH % 4 % (24-48); MEAN CORPUSCULAR HEMOGLOBIN 28 pg (25-35); MEAN CORPUSCULAR HGB CONC 32 g/dL (31-37); MEAN CORPUSCULAR VOLUME 89 fL (79-100); MONO % 6 % (0-9); NEUT # 15.5 x10^3uL (1.8-7.7); NEUT % 90 % (31-73); NITRITE,URINE NEGATIVE (NEG); PH,URINE 5.5; PLATELET COUNT 276 x10^3/uL (140-400); PROTEIN,URINE NEGATIVE (NEG-TRACE); RED BLOOD COUNT 4.92 x10^6/uL (4.30-5.70); RED CELL DISTRIBUTION WIDTH 17.1 % (11.5-14.5); WHITE BLOOD COUNT 17.2 x10^3/uL (4.0-11.0)
[2018-11-22 21:03] LABS: SQUAMOUS EPITHELIAL CELL,UR OCC /LPF
[2018-11-22 21:04] LABS: BACTERIA,URINE 0 /HPF (0-FEW); BARBITURATES NEG (NEG); BENZODIAZEPINES POS (NEG); CANNABINOIDS NEG (NEG); COCAINE NEG (NEG); HYALINE CASTS, URINE FEW /HPF; METHADONE NEG (NEG); OPIATES POS (NEG); PHENCYCLIDINE NEG (NEG); RBC,URINE RARE /HPF (0-2); WBC,URINE RARE /HPF (0-4)
[2018-11-22 21:06] LABS: AMPHETAMINE/METHAMPHETAMINE NEG (NEG)
[2018-11-22 21:09] LABS: ACETAMIN < 2 mcg/ml (10-30); CALCIUM 9.1 mg/dL (8.5-10.1); CREATININE 1.3 mg/dL (0.7-1.3); GFR 62.1; POTASSIUM 4.4 mmol/L (3.5-5.1); SALIC < 2.8 mg/dL (2.8-20.0)
[2018-11-22 21:10] LABS: ETHANOL < 10 mg/dL (0-10)
[2018-11-22 21:16] LABS: % BANDS 16 % (0-9); % LYMPHS 8 % (24-48); % MONOS 4 % (0-10); % SEGS 72 % (35-66); PLT ESTIMATE ADEQUATE (ADEQUATE)
[2018-11-22 21:18] LABS: ALBUMIN 4.2 g/dL (3.4-5.0); DIRECT BILIRUBIN 0.4 mg/dL (0.0-0.2); TOTAL BILIRUBIN 1.1 mg/dL (0.2-1.0); TOTAL PROTEIN 8.7 g/dL (6.4-8.2)
[2018-11-22] MEDS ORDERED: ONDANSETRON PF 4 MG/2 ML VIAL. IV PRN (21:45)
[2018-11-22] MEDS ORDERED: HYDROmorphone 2 MG/ML VIAL IV ONE (23:00)
[2018-11-22 23:59] VITALS: BP 138/75
[2018-11-23] VITALS (18 sets, daily range): BP systolic 100–170; BP diastolic 61–104
[2018-11-23] MEDS: HYDROmorphone 2 MG TABLET PO PRN ×2 (00:56→12:19)
[2018-11-23] MEDS: ALPRAZolam 1 MG TABLET PO PRN ×3 (00:57→20:15)
--- NOTE | 2018-11-23 01:00 | NUR ---
Patient admitted from the ER. patient was found down at home without a pulse. denies taking anything more than his scheduled Dilaudid. upon giving patient scheduled medication he dropped one of his Dilaudid. did find under bed wasted with 2 nurse
--- NOTE | 2018-11-23 05:11 | NUR ---
patient requested prn dose of Dilaudid, I refused to give at this time due to his 02 stat dropping into the 70, hard to awake.
[2018-11-23 06:20] LABS: BASO % 0 % (0-3); EOS % 0 % (0-3); HEMATOCRIT 40.8 % (39.0-53.0); LYMPH # 0.9 x10^3/uL (1.0-4.8); LYMPH % 12 % (24-48); MEAN CORPUSCULAR HEMOGLOBIN 28 pg (25-35); MEAN CORPUSCULAR HGB CONC 32 g/dL (31-37); MEAN CORPUSCULAR VOLUME 89 fL (79-100); MONO # 0.6 x10^3/uL (0.0-1.1); MONO % 7 % (0-9); NEUT # 6.4 x10^3uL (1.8-7.7); NEUT % 81 % (31-73); PLATELET COUNT 241 x10^3/uL (140-400); RED CELL DISTRIBUTION WIDTH 16.4 % (11.5-14.5); WHITE BLOOD COUNT 7.9 x10^3/uL (4.0-11.0)
[2018-11-23 06:50] LABS: ALBUMIN 3.7 g/dL (3.4-5.0); ALBUMIN/GLOBULIN RATIO 0.9 (1.0-1.7); CALCIUM 8.7 mg/dL (8.5-10.1); GFR 84.1; POTASSIUM 4.5 mmol/L (3.5-5.1); TOTAL BILIRUBIN 0.7 mg/dL (0.2-1.0); TOTAL PROTEIN 7.8 g/dL (6.4-8.2)
--- NOTE | 2018-11-23 06:58 | EKG ---
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
--- NOTE | 2018-11-23 11:13 | PDOC1 ---
History and Physical Date of Admission: Date of Admission DATE: 11/23/18 TIME: 11:11 Chief Complaint: Problems: (1) Bilateral kidney stones (2) Urinary tract infection (3) Bilateral flank pain (4) Bilateral atelectasis (5) Sepsis (6) Abscess (7) Seroma (8) SIRS (systemic inflammatory response syndrome) (9) SIRS (systemic inflammatory response syndrome) (10) Fever (11) Adverse effects of medication (12) HCAP (healthcare-associated pneumonia) (13) Sciatica (14) Respiratory arrest (15) Benzodiazepine overdose (16) Patient left without being seen (17) Dyspnea (18) Tachycardia (19) Near syncope Chief Complain: Found down probable opiate overdose History of Present Illness: HPI: Patient is a pleasant middle-aged male well-known to my service with admitting numerous times for opiate overdoses Once again his found him down she started CPR and gave him Narcan which I had prescribed for her to have at home He seemed to respond to this but she went called and wants Patient is now been admitted to the ICU where he is improving but still wanting more meds Past Medical/Surgical History: PMH/PSH: Past Medical History Past Medical History: Anxiety, Kidney Stone Additional Past Medical Histor: chronic back pain due to herniated disc, irreg heart beat Past Surgical History: Appendectomy, Cholecystectomy, Tonsillectomy, Other Additional Past Surgical Histo: MULTIPLE BACK SURGERIES, LAP BAND SX, HIATAL HERNIA Alcohol Use: Occasionally Drug Use: Benzodiazepine, Opiates Allergies: Allergies: Coded Allergies: Penicillins (Verified Allergy, Intermediate, Hives, 11/13/18) ketorolac (Verified Allergy, Intermediate, 11/13/18) tramadol (Verified Allergy, Intermediate, 11/13/18) Family History: Family History: Hypertension Social History: Social Hisoty: He was at home with his is disabled from back pain denies smoking or drinking Used to use a lot of street drugs but I think he is off of those but he takes a lot of by mouth narcotics that are prescribed Current Medications: Current Medications Current Medications Sodium Chloride 1,000 ml @ 1,000 mls/hr Q1H IV Last administered on 11/22/18at 18:21; Start 11/22/18 at 18:21; Stop 11/22/18 at 19:20; Status DC Ondansetron HCl (Zofran) 4 mg PRN Q8HRS PRN IV NAUSEA/VOMITING 1ST CHOICE; Start 11/22/18 at 21:45; Stop 11/23/18 at 21:44 Sodium Chloride 1,000 ml @ 150 mls/hr Q6H40M IV Last administered on 11/22/18at 22:00; Start 11/22/18 at 22:00; Stop 11/23/18 at 21:59 Hydromorphone HCl (Dilaudid) 0.5 mg 1X ONCE IV Last administered on 11/22/18at 22:47; Start 11/22/18 at 23:00; Stop 11/22/18 at 23:01; Status DC Hydromorphone HCl (Dilaudid) 4 mg PRN Q4HRS PRN PO SEVERE PAIN Last administered on 11/23/18at 00:56; Start 11/23/18 at 00:45 Alprazolam (Xanax) 2 mg PRN Q8HRS PRN PO ANXIETY / AGITATION Last administered on 11/23/18at 10:01; Start 11/23/18 at 00:45; Stop 11/23/18 at 10:01; Status DC Active Scripts Active Reported Metoprolol Tartrate 50 Mg Tablet 75 Mg PO BID Dilaudid (Hydromorphone Hcl) 4 Mg Tablet 4 Mg PO PRN Q4HRS PRN Alprazolam 2 Mg Tablet 2 Mg PO PRN TID PRN Aspirin 81 Mg Tab.chew 1 Tab PO DAILY ROS: Review of Systems Review of System REVIEW OF SYSTEMS: GENERAL: Denies weakness SKIN: No bruising, hair changes or rashes. EYES: No blurred, double or loss of vision. NOSE AND THROAT: No history of nosebleeds, hoarseness or sore throat. HEART: No history of palpitations, chest pain or shortness of breath on exertion. LUNGS: Denies cough, hemoptysis, wheezing or shortness of breath. GASTROINTESTINAL: Denies changes in appetite, nausea, vomiting, diarrhea or constipation. GENITOURINARY: No history of frequency, urgency, hesitancy or nocturia. NEUROLOGIC: Denies history of numbness, tingling, tremor or weakness. PSYCHIATRIC: No history of panic, anxiety or depression. ENDOCRINE: No history of heat or cold intolerance, polyuria or polydipsia. EXTREMITIES: Denies muscle weakness, joint pain, pain on walking or stiffness. Physical Exam: Vital Signs: Vital Signs Date Time Temp Pulse Resp B/P (MAP) Pulse Ox O2 Delivery O2 Flow Rate FiO2 11/23/18 10:00 86 18 117/80 (92) 94 Nasal Cannula 3.0 11/23/18 08:00 97.9 97.9 Physcial Exam: GEN.: No apparent distress. Alert and oriented. HEENT: Head is normocephalic, atraumatic NECK: Supple, no JVD LUNGS: Clear to auscultation without rhonchi or wheezing HEART: RRR, S1, S2 present. Peripheral pulses intact ABDOMEN: Soft, nontender. Positive bowel sounds no organomegaly EXTREMITIES: Without any cyanosis, clubbing, or edema. Pedal pulses intact NEUROLOGIC: Normal speech, normal tone. A&O x 3 PSYCHIATRIC: Normal affect, normal mood. Stable SKIN: No ulcerations or rashes VASCULAR: Good capillary refill Labs: Labs: Laboratory Tests Test 11/22/18 20:30 11/23/18 05:05 White Blood Count 17.2 x10^3/uL (4.0-11.0) 7.9 x10^3/uL (4.0-11.0) Red Blood Count 4.92 x10^6/uL (4.30-5.70) 4.60 x10^6/uL (4.30-5.70) Hemoglobin 14.0 g/dL (13.0-17.5) 13.0 g/dL (13.0-17.5) Hematocrit 43.7 % (39.0-53.0) 40.8 % (39.0-53.0) Mean Corpuscular Volume 89 fL (79-100) 89 fL (79-100) Mean Corpuscular Hemoglobin 28 pg (25-35) 28 pg (25-35) Mean Corpuscular Hemoglobin Concent 32 g/dL (31-37) 32 g/dL (31-37) Red Cell Distribution Width 17.1 % (11.5-14.5) 16.4 % (11.5-14.5) Platelet Count 276 x10^3/uL (140-400) 241 x10^3/uL (140-400) Neutrophils (%) (Auto) 90 % (31-73) 81 % (31-73) Lymphocytes (%) (Auto) 4 % (24-48) 12 % (24-48) Monocytes (%) (Auto) 6 % (0-9) 7 % (0-9) Eosinophils (%) (Auto) 0 % (0-3) 0 % (0-3) Basophils (%) (Auto) 0 % (0-3) 0 % (0-3) Neutrophils # (Auto) 15.5 x10^3uL (1.8-7.7) 6.4 x10^3uL (1.8-7.7) Lymphocytes # (Auto) 0.7 x10^3/uL (1.0-4.8) 0.9 x10^3/uL (1.0-4.8) Monocytes # (Auto) 1.0 x10^3/uL (0.0-1.1) 0.6 x10^3/uL (0.0-1.1) Eosinophils # (Auto) 0.1 x10^3/uL (0.0-0.7) 0.0 x10^3/uL (0.0-0.7) Basophils # (Auto) 0.0 x10^3/uL (0.0-0.2) 0.0 x10^3/uL (0.0-0.2) Segmented Neutrophils % 72 % (35-66) Band Neutrophils % 16 % (0-9) Lymphocytes % 8 % (24-48) Monocytes % 4 % (0-10) Platelet Estimate Adequate (ADEQUATE) Urine Collection Type Unknown Urine Color Yellow Urine Clarity Clear Urine pH 5.5 Urine Specific [place] 1.015 Urine Protein Negative mg/dL (NEG-TRACE) Urine Glucose (UA) 100 mg/dL (NEG) Urine Ketones (Stick) Negative mg/dL (NEG) Urine Blood Negative (NEG) Urine Nitrite Negative (NEG) Urine Bilirubin Negative (NEG) Urine Urobilinogen Dipstick 1.0 mg/dL (0.2 mg/dL) Urine Leukocyte Esterase Negative (NEG) Urine RBC Rare /HPF (0-2) Urine WBC Rare /HPF (0-4) Urine Squamous Epithelial Cells Occ /LPF Urine Bacteria 0 /HPF (0-FEW) Urine Hyaline Casts Few /HPF Urine Mucus Mod /LPF Sodium Level 138 mmol/L (136-145) 143 mmol/L (136-145) Potassium Level 4.4 mmol/L (3.5-5.1) 4.5 mmol/L (3.5-5.1) Chloride Level 98 mmol/L (98-107) 105 mmol/L (98-107) Carbon Dioxide Level 30 mmol/L (21-32) 29 mmol/L (21-32) Anion Gap 10 (6-14) 9 (6-14) Blood Urea Nitrogen 16 mg/dL (8-26) 13 mg/dL (8-26) Creatinine 1.3 mg/dL (0.7-1.3) 1.0 mg/dL (0.7-1.3) Estimated GFR (Cockcroft-Gault) 62.1 84.1 Glucose Level 55 mg/dL (70-99) 113 mg/dL (70-99) Calcium Level 9.1 mg/dL (8.5-10.1) 8.7 mg/dL (8.5-10.1) Magnesium Level 2.0 mg/dL (1.8-2.4) Total Bilirubin 1.1 mg/dL (0.2-1.0) 0.7 mg/dL (0.2-1.0) Direct Bilirubin 0.4 mg/dL (0.0-0.2) Aspartate Amino Transf (AST/SGOT) 102 U/L (15-37) 76 U/L (15-37) Alanine Aminotransferase (ALT/SGPT) 1070 U/L (16-63) 772 U/L (16-63) Alkaline Phosphatase 112 U/L (46-116) 97 U/L (46-116) Creatine Kinase 146 U/L (39-308) Total Protein 8.7 g/dL (6.4-8.2) 7.8 g/dL (6.4-8.2) Albumin 4.2 g/dL (3.4-5.0) 3.7 g/dL (3.4-5.0) Salicylates Level < 2.8 mg/dL (2.8-20.0) Salicylate Last Dose Date Unk Salicylate Last Dose Time Unk Urine Opiates Screen Pos (NEG) Urine Methadone Screen Neg (NEG) Acetaminophen Level < 2 mcg/ml (10-30) Acetaminophen Last Dose Date Unk Acetaminophen Last Dose Time Unk Urine Barbiturates Neg (NEG) Urine Phencyclidine Screen Neg (NEG) Urine Amphetamine/Methamphetamine Neg (NEG) Urine Benzodiazepines Screen Pos (NEG) Urine Cocaine Screen Neg (NEG) Urine Cannabinoids Screen Neg (NEG) Ethyl Alcohol Level < 10 mg/dL (0-10) Urine Ethyl Alcohol Neg (NEG) BUN/Creatinine Ratio 13 (6-20) Albumin/Globulin Ratio 0.9 (1.0-1.7) Laboratory Tests Test 11/22/18 20:30 11/23/18 05:05 White Blood Count 17.2 x10^3/uL (4.0-11.0) 7.9 x10^3/uL (4.0-11.0) Red Blood Count 4.92 x10^6/uL (4.30-5.70) 4.60 x10^6/uL (4.30-5.70) Hemoglobin 14.0 g/dL (13.0-17.5) 13.0 g/dL (13.0-17.5) Hematocrit 43.7 % (39.0-53.0) 40.8 % (39.0-53.0) Mean Corpuscular Volume 89 fL (79-100) 89 fL (79-100) Mean Corpuscular Hemoglobin 28 pg (25-35) 28 pg (25-35) Mean Corpuscular Hemoglobin Concent 32 g/dL (31-37) 32 g/dL (31-37) Red Cell Distribution Width 17.1 % (11.5-14.5) 16.4 % (11.5-14.5) Platelet Count 276 x10^3/uL (140-400) 241 x10^3/uL (140-400) Neutrophils (%) (Auto) 90 % (31-73) 81 % (31-73) Lymphocytes (%) (Auto) 4 % (24-48) 12 % (24-48) Monocytes (%) (Auto) 6 % (0-9) 7 % (0-9) Eosinophils (%) (Auto) 0 % (0-3) 0 % (0-3) Basophils (%) (Auto) 0 % (0-3) 0 % (0-3) Neutrophils # (Auto) 15.5 x10^3uL (1.8-7.7) 6.4 x10^3uL (1.8-7.7) Lymphocytes # (Auto) 0.7 x10^3/uL (1.0-4.8) 0.9 x10^3/uL (1.0-4.8) Monocytes # (Auto) 1.0 x10^3/uL (0.0-1.1) 0.6 x10^3/uL (0.0-1.1) Eosinophils # (Auto) 0.1 x10^3/uL (0.0-0.7) 0.0 x10^3/uL (0.0-0.7) Basophils # (Auto) 0.0 x10^3/uL (0.0-0.2) 0.0 x10^3/uL (0.0-0.2) Segmented Neutrophils % 72 % (35-66) Band Neutrophils % 16 % (0-9) Lymphocytes % 8 % (24-48) Monocytes % 4 % (0-10) Platelet Estimate Adequate (ADEQUATE) Urine Collection Type Unknown Urine Color Yellow Urine Clarity Clear Urine pH 5.5 Urine Specific [place] 1.015 Urine Protein Negative mg/dL (NEG-TRACE) Urine Glucose (UA) 100 mg/dL (NEG) Urine Ketones (Stick) Negative mg/dL (NEG) Urine Blood Negative (NEG) Urine Nitrite Negative (NEG) Urine Bilirubin Negative (NEG) Urine Urobilinogen Dipstick 1.0 mg/dL (0.2 mg/dL) Urine Leukocyte Esterase Negative (NEG) Urine RBC Rare /HPF (0-2) Urine WBC Rare /HPF (0-4) Urine Squamous Epithelial Cells Occ /LPF Urine Bacteria 0 /HPF (0-FEW) Urine Hyaline Casts Few /HPF Urine Mucus Mod /LPF Sodium Level 138 mmol/L (136-145) 143 mmol/L (136-145) Potassium Level 4.4 mmol/L (3.5-5.1) 4.5 mmol/L (3.5-5.1) Chloride Level 98 mmol/L (98-107) 105 mmol/L (98-107) Carbon Dioxide Level 30 mmol/L (21-32) 29 mmol/L (21-32) Anion Gap 10 (6-14) 9 (6-14) Blood Urea Nitrogen 16 mg/dL (8-26) 13 mg/dL (8-26) Creatinine 1.3 mg/dL (0.7-1.3) 1.0 mg/dL (0.7-1.3) Estimated GFR (Cockcroft-Gault) 62.1 84.1 Glucose Level 55 mg/dL (70-99) 113 mg/dL (70-99) Calcium Level 9.1 mg/dL (8.5-10.1) 8.7 mg/dL (8.5-10.1) Magnesium Level 2.0 mg/dL (1.8-2.4) Total Bilirubin 1.1 mg/dL (0.2-1.0) 0.7 mg/dL (0.2-1.0) Direct Bilirubin 0.4 mg/dL (0.0-0.2) Aspartate Amino Transf (AST/SGOT) 102 U/L (15-37) 76 U/L (15-37) Alanine Aminotransferase (ALT/SGPT) 1070 U/L (16-63) 772 U/L (16-63) Alkaline Phosphatase 112 U/L (46-116) 97 U/L (46-116) Creatine Kinase 146 U/L (39-308) Total Protein 8.7 g/dL (6.4-8.2) 7.8 g/dL (6.4-8.2) Albumin 4.2 g/dL (3.4-5.0) 3.7 g/dL (3.4-5.0) Salicylates Level < 2.8 mg/dL (2.8-20.0) Salicylate Last Dose Date Unk Salicylate Last Dose Time Unk Urine Opiates Screen Pos (NEG) Urine Methadone Screen Neg (NEG) Acetaminophen Level < 2 mcg/ml (10-30) Acetaminophen Last Dose Date Unk Acetaminophen Last Dose Time Unk Urine Barbiturates Neg (NEG) Urine Phencyclidine Screen Neg (NEG) Urine Amphetamine/Methamphetamine Neg (NEG) Urine Benzodiazepines Screen Pos (NEG) Urine Cocaine Screen Neg (NEG) Urine Cannabinoids Screen Neg (NEG) Ethyl Alcohol Level < 10 mg/dL (0-10) Urine Ethyl Alcohol Neg (NEG) BUN/Creatinine Ratio 13 (6-20) Albumin/Globulin Ratio 0.9 (1.0-1.7) Images: Images Chest x-ray without acute changes Assessment/Plan Assessment/Plan Probable narcotic overdose that responded to Narcan Plan Consult Dr. Bryan Greenberg pain management We'll try to resume his home meds if possible ICU monitoring DVT prophylaxis Full code IV hydration When necessary Narcan Prognosis guarded if he doesn't stop doing the drugs Total time 31 minutes REYNALDO GARCIA III DO November 23, 2018 11:13
--- NOTE | 2018-11-23 12:25 | NUR ---
pt transferred to room 510. oriented to room and call light. pt immediately requesting dilaudid and xanax.
--- NOTE | 2018-11-23 12:37 | NUR ---
pg sent to Dr. Wayne RE pt's BP 170/104 and his request for home meds
--- NOTE | 2018-11-23 12:55 | PDOC ---
SUBJECTIVE Subjective Low back and hip pain OBJECTIVE Objective 38 yo male with chronic low back and hip/orthopaedic pains on chronic opioid therapy. S/P apparent OD at home Vital Signs Vital Signs Date Time Temp Pulse Resp B/P (MAP) Pulse Ox O2 Delivery O2 Flow Rate FiO2 11/23/18 12:19 Nasal Cannula 2.0 11/23/18 12:00 98.7 89 20 170/104 (126) 94 Room Air 98.7 11/23/18 10:00 86 18 117/80 (92) 94 Nasal Cannula 3.0 11/23/18 09:00 88 25 122/75 (91) 98 Nasal Cannula 3.0 11/23/18 08:00 97.9 86 23 132/75 (94) 95 Nasal Cannula 3.0 97.9 11/23/18 08:00 Nasal Cannula 3.0 11/23/18 07:00 86 27 133/69 (90) 95 Nasal Cannula 3.0 11/23/18 06:00 88 12 100/61 (74) 98 Nasal Cannula 3.0 11/23/18 05:00 88 20 118/88 (98) 98 Nasal Cannula 3.0 11/23/18 04:00 98.4 93 35 113/78 (90) 97 Nasal Cannula 3.0 98.4 11/23/18 04:00 Nasal Cannula 2.0 11/23/18 03:00 90 35 116/75 (89) 95 Nasal Cannula 3.0 11/23/18 02:00 90 24 104/62 (76) 95 Nasal Cannula 3.0 11/23/18 01:30 90 28 112/66 (81) 95 Nasal Cannula 3.0 11/23/18 01:00 90 18 116/75 (89) 95 Nasal Cannula 3.0 11/23/18 00:56 17 90 11/23/18 00:45 88 19 114/76 (89) 95 Nasal Cannula 3.0 11/23/18 00:30 89 20 131/79 (96) 95 Nasal Cannula 3.0 11/23/18 00:15 90 35 116/75 (89) 95 Nasal Cannula 3.0 11/22/18 23:59 98.5 90 33 138/75 (96) 95 Nasal Cannula 3.0 98.5 11/22/18 23:50 Nasal Cannula 2.0 11/22/18 23:37 88 124/67 (86) 92 5/22/19 22:47 16 90 Nasal Cannula 11/22/18 22:44 90 120/66 (84) 95 11/22/18 22:34 88 103/86 (92) 95 11/22/18 21:30 81 95/69 (78) 96 11/22/18 21:00 81 127/88 (101) 92 11/22/18 20:30 75 124/76 (92) 95 11/22/18 19:00 93 117/65 (82) 93 11/22/18 18:30 98 114/52 (72) 97 11/22/18 18:12 97.6 85 20 144/60 (88) 94 Room Air 97.6 11/22/18 18:11 83 144/60 (88) I & O Intake and Output 11/23/18 07:00 Intake Total 1000 ml Output Total 1850 ml Balance -850 ml Intake Oral 0 ml IV Total 1000 ml Output Urine Total 1850 ml ASSESSMENT/PLAN Assessment/Plan 38 yo chronic pain with opiate therapy- hydromorphone at home- S/P apparent OD REC: consider alternative delivery method of opiate, more difficult to abuse such as Embeda(Mso4), Butrans transdermal, or duragesic patch vs reinstituting oral hydromorphone, as pt oxygenation allows. Pt. would be good candidate for detox therapy as IP. Needs aggressive wt. loss if to remain on opiate therapy(increased resp. depression risk). COMMENT Lab Laboratory Tests Test 11/22/18 20:30 11/23/18 05:05 White Blood Count 17.2 x10^3/uL (4.0-11.0) 7.9 x10^3/uL (4.0-11.0) Red Blood Count 4.92 x10^6/uL (4.30-5.70) 4.60 x10^6/uL (4.30-5.70) Hemoglobin 14.0 g/dL (13.0-17.5) 13.0 g/dL (13.0-17.5) Hematocrit 43.7 % (39.0-53.0) 40.8 % (39.0-53.0) Mean Corpuscular Volume 89 fL (79-100) 89 fL (79-100) Mean Corpuscular Hemoglobin 28 pg (25-35) 28 pg (25-35) Mean Corpuscular Hemoglobin Concent 32 g/dL (31-37) 32 g/dL (31-37) Red Cell Distribution Width 17.1 % (11.5-14.5) 16.4 % (11.5-14.5) Platelet Count 276 x10^3/uL (140-400) 241 x10^3/uL (140-400) Neutrophils (%) (Auto) 90 % (31-73) 81 % (31-73) Lymphocytes (%) (Auto) 4 % (24-48) 12 % (24-48) Monocytes (%) (Auto) 6 % (0-9) 7 % (0-9) Eosinophils (%) (Auto) 0 % (0-3) 0 % (0-3) Basophils (%) (Auto) 0 % (0-3) 0 % (0-3) Neutrophils # (Auto) 15.5 x10^3uL (1.8-7.7) 6.4 x10^3uL (1.8-7.7) Lymphocytes # (Auto) 0.7 x10^3/uL (1.0-4.8) 0.9 x10^3/uL (1.0-4.8) Monocytes # (Auto) 1.0 x10^3/uL (0.0-1.1) 0.6 x10^3/uL (0.0-1.1) Eosinophils # (Auto) 0.1 x10^3/uL (0.0-0.7) 0.0 x10^3/uL (0.0-0.7) Basophils # (Auto) 0.0 x10^3/uL (0.0-0.2) 0.0 x10^3/uL (0.0-0.2) Segmented Neutrophils % 72 % (35-66) Band Neutrophils % 16 % (0-9) Lymphocytes % 8 % (24-48) Monocytes % 4 % (0-10) Platelet Estimate Adequate (ADEQUATE) Urine Collection Type Unknown Urine Color Yellow Urine Clarity Clear Urine pH 5.5 Urine Specific [place] 1.015 Urine Protein Negative mg/dL (NEG-TRACE) Urine Glucose (UA) 100 mg/dL (NEG) Urine Ketones (Stick) Negative mg/dL (NEG) Urine Blood Negative (NEG) Urine Nitrite Negative (NEG) Urine Bilirubin Negative (NEG) Urine Urobilinogen Dipstick 1.0 mg/dL (0.2 mg/dL) Urine Leukocyte Esterase Negative (NEG) Urine RBC Rare /HPF (0-2) Urine WBC Rare /HPF (0-4) Urine Squamous Epithelial Cells Occ /LPF Urine Bacteria 0 /HPF (0-FEW) Urine Hyaline Casts Few /HPF Urine Mucus Mod /LPF Sodium Level 138 mmol/L (136-145) 143 mmol/L (136-145) Potassium Level 4.4 mmol/L (3.5-5.1) 4.5 mmol/L (3.5-5.1) Chloride Level 98 mmol/L (98-107) 105 mmol/L (98-107) Carbon Dioxide Level 30 mmol/L (21-32) 29 mmol/L (21-32) Anion Gap 10 (6-14) 9 (6-14) Blood Urea Nitrogen 16 mg/dL (8-26) 13 mg/dL (8-26) Creatinine 1.3 mg/dL (0.7-1.3) 1.0 mg/dL (0.7-1.3) Estimated GFR (Cockcroft-Gault) 62.1 84.1 Glucose Level 55 mg/dL (70-99) 113 mg/dL (70-99) Calcium Level 9.1 mg/dL (8.5-10.1) 8.7 mg/dL (8.5-10.1) Magnesium Level 2.0 mg/dL (1.8-2.4) Total Bilirubin 1.1 mg/dL (0.2-1.0) 0.7 mg/dL (0.2-1.0) Direct Bilirubin 0.4 mg/dL (0.0-0.2) Aspartate Amino Transf (AST/SGOT) 102 U/L (15-37) 76 U/L (15-37) Alanine Aminotransferase (ALT/SGPT) 1070 U/L (16-63) 772 U/L (16-63) Alkaline Phosphatase 112 U/L (46-116) 97 U/L (46-116) Creatine Kinase 146 U/L (39-308) Total Protein 8.7 g/dL (6.4-8.2) 7.8 g/dL (6.4-8.2) Albumin 4.2 g/dL (3.4-5.0) 3.7 g/dL (3.4-5.0) Salicylates Level < 2.8 mg/dL (2.8-20.0) Salicylate Last Dose Date Unk Salicylate Last Dose Time Unk Urine Opiates Screen Pos (NEG) Urine Methadone Screen Neg (NEG) Acetaminophen Level < 2 mcg/ml (10-30) Acetaminophen Last Dose Date Unk Acetaminophen Last Dose Time Unk Urine Barbiturates Neg (NEG) Urine Phencyclidine Screen Neg (NEG) Urine Amphetamine/Methamphetamine Neg (NEG) Urine Benzodiazepines Screen Pos (NEG) Urine Cocaine Screen Neg (NEG) Urine Cannabinoids Screen Neg (NEG) Ethyl Alcohol Level < 10 mg/dL (0-10) Urine Ethyl Alcohol Neg (NEG) BUN/Creatinine Ratio 13 (6-20) Albumin/Globulin Ratio 0.9 (1.0-1.7) GURJIT MURCIA MD November 23, 2018 12:55
--- NOTE | 2018-11-23 14:02 | PDOC2 ---
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 H/o overdose. Chart indicates Narcan was given and the CPR was initiated - he says he didn't have CPR and Narcan didn't work. Improved, on regular floor and eating. GI asked to see for elevated LFTs that have improved. Reports "chest soreness." No reflux, dysphagia, n/v, weight loss, diarrhea, constipation, or bleeding. Has intermittent abdominal cramping. Recurrent dizziness and "not getting enough oxygen to my brain." Would like an EGD, colonoscopy, cardiology, neurology, pulmonology, and pain eval while he's here. Previous EGD and colonoscopy - can't remember where or when but recalls no significant findings. S/p cholecystectomy (stones). No liver, pancreas, or PUD history. Hepatitis panel was negative in 2016. Diverticulosis on past imaging. PMH: PMH: A Fib, HTN, NETTA, pneumonia, ADD, anxiety, diverticulosis, IBS, nephrolithiasis, chronic back pain appendectomy, cholecystectomy, tonsillectomy, adenoidectomy, back surgeries, lap band/removal, I&Ds, lipoma removal FH: Family History: Other (not really sure) Social History: ALCOHOL: none Drugs: None ROS: GEN: Denies fevers, chills, sweats HEENT: Denies blurred vision, sore throat CV: +chest pain RESP: +shortness of air GI: Per HPI : Denies hematuria, dysuria ENDO: Denies weight changes NEURO: +dizziness MSK: +back pain SKIN: Denies jaundice, pruritus Vitals: Vitals: Vital Signs Date Time Temp Pulse Resp B/P (MAP) Pulse Ox O2 Delivery O2 Flow Rate FiO2 11/23/18 12:19 Nasal Cannula 2.0 11/23/18 12:00 98.7 89 20 170/104 (126) 94 98.7 Labs: Labs: Laboratory Tests Test 11/22/18 20:30 11/23/18 05:05 White Blood Count 17.2 x10^3/uL (4.0-11.0) 7.9 x10^3/uL (4.0-11.0) Red Blood Count 4.92 x10^6/uL (4.30-5.70) 4.60 x10^6/uL (4.30-5.70) Hemoglobin 14.0 g/dL (13.0-17.5) 13.0 g/dL (13.0-17.5) Hematocrit 43.7 % (39.0-53.0) 40.8 % (39.0-53.0) Mean Corpuscular Volume 89 fL (79-100) 89 fL (79-100) Mean Corpuscular Hemoglobin 28 pg (25-35) 28 pg (25-35) Mean Corpuscular Hemoglobin Concent 32 g/dL (31-37) 32 g/dL (31-37) Red Cell Distribution Width 17.1 % (11.5-14.5) 16.4 % (11.5-14.5) Platelet Count 276 x10^3/uL (140-400) 241 x10^3/uL (140-400) Neutrophils (%) (Auto) 90 % (31-73) 81 % (31-73) Lymphocytes (%) (Auto) 4 % (24-48) 12 % (24-48) Monocytes (%) (Auto) 6 % (0-9) 7 % (0-9) Eosinophils (%) (Auto) 0 % (0-3) 0 % (0-3) Basophils (%) (Auto) 0 % (0-3) 0 % (0-3) Neutrophils # (Auto) 15.5 x10^3uL (1.8-7.7) 6.4 x10^3uL (1.8-7.7) Lymphocytes # (Auto) 0.7 x10^3/uL (1.0-4.8) 0.9 x10^3/uL (1.0-4.8) Monocytes # (Auto) 1.0 x10^3/uL (0.0-1.1) 0.6 x10^3/uL (0.0-1.1) Eosinophils # (Auto) 0.1 x10^3/uL (0.0-0.7) 0.0 x10^3/uL (0.0-0.7) Basophils # (Auto) 0.0 x10^3/uL (0.0-0.2) 0.0 x10^3/uL (0.0-0.2) Segmented Neutrophils % 72 % (35-66) Band Neutrophils % 16 % (0-9) Lymphocytes % 8 % (24-48) Monocytes % 4 % (0-10) Platelet Estimate Adequate (ADEQUATE) Urine Collection Type Unknown Urine Color Yellow Urine Clarity Clear Urine pH 5.5 Urine Specific [place] 1.015 Urine Protein Negative mg/dL (NEG-TRACE) Urine Glucose (UA) 100 mg/dL (NEG) Urine Ketones (Stick) Negative mg/dL (NEG) Urine Blood Negative (NEG) Urine Nitrite Negative (NEG) Urine Bilirubin Negative (NEG) Urine Urobilinogen Dipstick 1.0 mg/dL (0.2 mg/dL) Urine Leukocyte Esterase Negative (NEG) Urine RBC Rare /HPF (0-2) Urine WBC Rare /HPF (0-4) Urine Squamous Epithelial Cells Occ /LPF Urine Bacteria 0 /HPF (0-FEW) Urine Hyaline Casts Few /HPF Urine Mucus Mod /LPF Sodium Level 138 mmol/L (136-145) 143 mmol/L (136-145) Potassium Level 4.4 mmol/L (3.5-5.1) 4.5 mmol/L (3.5-5.1) Chloride Level 98 mmol/L (98-107) 105 mmol/L (98-107) Carbon Dioxide Level 30 mmol/L (21-32) 29 mmol/L (21-32) Anion Gap 10 (6-14) 9 (6-14) Blood Urea Nitrogen 16 mg/dL (8-26) 13 mg/dL (8-26) Creatinine 1.3 mg/dL (0.7-1.3) 1.0 mg/dL (0.7-1.3) Estimated GFR (Cockcroft-Gault) 62.1 84.1 Glucose Level 55 mg/dL (70-99) 113 mg/dL (70-99) Calcium Level 9.1 mg/dL (8.5-10.1) 8.7 mg/dL (8.5-10.1) Magnesium Level 2.0 mg/dL (1.8-2.4) Total Bilirubin 1.1 mg/dL (0.2-1.0) 0.7 mg/dL (0.2-1.0) Direct Bilirubin 0.4 mg/dL (0.0-0.2) Aspartate Amino Transf (AST/SGOT) 102 U/L (15-37) 76 U/L (15-37) Alanine Aminotransferase (ALT/SGPT) 1070 U/L (16-63) 772 U/L (16-63) Alkaline Phosphatase 112 U/L (46-116) 97 U/L (46-116) Creatine Kinase 146 U/L (39-308) Total Protein 8.7 g/dL (6.4-8.2) 7.8 g/dL (6.4-8.2) Albumin 4.2 g/dL (3.4-5.0) 3.7 g/dL (3.4-5.0) Salicylates Level < 2.8 mg/dL (2.8-20.0) Salicylate Last Dose Date Unk Salicylate Last Dose Time Unk Urine Opiates Screen Pos (NEG) Urine Methadone Screen Neg (NEG) Acetaminophen Level < 2 mcg/ml (10-30) Acetaminophen Last Dose Date Unk Acetaminophen Last Dose Time Unk Urine Barbiturates Neg (NEG) Urine Phencyclidine Screen Neg (NEG) Urine Amphetamine/Methamphetamine Neg (NEG) Urine Benzodiazepines Screen Pos (NEG) Urine Cocaine Screen Neg (NEG) Urine Cannabinoids Screen Neg (NEG) Ethyl Alcohol Level < 10 mg/dL (0-10) Urine Ethyl Alcohol Neg (NEG) BUN/Creatinine Ratio 13 (6-20) Albumin/Globulin Ratio 0.9 (1.0-1.7) Allergies: Coded Allergies: Penicillins (Verified Allergy, Intermediate, Hives, 11/13/18) ketorolac (Verified Allergy, Intermediate, 11/13/18) tramadol (Verified Allergy, Intermediate, 11/13/18) Medications: Current Medications Medications (Trade) Dose Ordered Sig/Malcolm Route PRN Reason Start Time Stop Time Status Last Admin Dose Admin Sodium Chloride 1,000 ml @ 1,000 mls/hr Q1H IV 11/22/18 18:21 11/22/18 19:20 DC 11/22/18 18:21 Sodium Chloride 1,000 ml @ 150 mls/hr Q6H40M IV 11/22/18 22:00 11/23/18 11:20 DC 11/22/18 22:00 Hydromorphone HCl (Dilaudid) 0.5 mg 1X ONCE IV 11/22/18 23:00 11/22/18 23:01 DC 11/22/18 22:47 Hydromorphone HCl (Dilaudid) 4 mg PRN Q4HRS PRN PO SEVERE PAIN 11/23/18 00:45 11/23/18 12:20 DC 11/23/18 12:19 Alprazolam (Xanax) 2 mg PRN Q8HRS PRN PO ANXIETY / AGITATION 11/23/18 00:45 11/23/18 10:01 DC 11/23/18 10:01 Imaging: Imaging: CXR IMPRESSION: Prominent bilateral bronchovascular markings may be secondary to peribronchial edema or bronchitis. PE: GEN: NAD - was asleep, lunch tray empty HEENT: Atraumatic, PERRL LUNGS: CTAB HEART: RRR ABD: NABS, S/NT, large EXTREMITY: No edema SKIN: No rashes, no jaundice NEURO/PSYCH: A & O 3 A/P: A/P: Chronic back pain, suspected overdose, chest soreness, recurrent dizziness - per Dr. Wayne Elevated LFTs - viral Hepatitis serologies neg in 2016 Obesity IBS CRC screen - reports previously normal colonoscopy Diverticulosis S/p cholecystectomy -- Possible ischemic injury to liver - labs improving. Will check RUQ US. Follow-up w/ GI as outpt PRN. DC per primary. TORREY RIVERA November 23, 2018 14:02
[2018-11-23] MEDS: METOPROLOL TART IMMED RELEASE 50 MG TABLET. PO SCH ×2 (15:13→20:17)
[2018-11-23] MEDS: ASPIRIN CHEWABLE 81 MG TABLET. PO SCH (15:13)
--- NOTE | 2018-11-23 16:37 | NUR ---
SW following pt for anticipated dc needs. Chart reviewed. Pt lives at home with family and no discharge recommendations noted at this time.
[2018-11-23] MEDS: HYDROmorphone 4 MG TABLET PO PRN ×2 (16:57→20:58)
[2018-11-23] MEDS ORDERED: METOPROLOL TART IMMED RELEASE 50 MG TABLET. PO SCH (21:00)
[2018-11-24] MEDS: HYDROmorphone 4 MG TABLET PO PRN ×5 (00:58→17:27)
--- NOTE | 2018-11-24 02:31 | NUR ---
Pt requesting IV Dilaudid for trouble getting to sleep and is also receiving 4mg PO Dilaudid Q4. Educated pt that this medication is not administered for this reason and that sleeping medication could be discussed with the rounding physician tomorrow.
[2018-11-24 03:00] VITALS: BP 132/78
[2018-11-24] MEDS: ALPRAZolam 1 MG TABLET PO PRN ×2 (04:36→15:38)
--- NOTE | 2018-11-24 06:04 | RAD ---
Ultrasound the abdomen limited. HISTORY: Transaminitis Ultrasound was used to evaluate the liver and right upper quadrant. The pancreas is obscured by bowel gas. Aorta was poorly seen. Liver is difficult to evaluate. Common duct was normal measuring 3 mm. The patient had a previous cholecystectomy. A focal liver lesion was not definitively identified. Right kidney is 12.6 cm in length without a mass or hydronephrosis. IVC at the liver was unremarkable. There is flow in hepatic veins and portal veins with color imaging. IMPRESSION: 1. Limited study. 2. Previous cholecystectomy. 3. Normal common duct. 4. No definite focal liver lesion but incomplete evaluation. Electronically signed by: Ander Gorman MD (11/24/2018 6:01 AM) [id number]
[2018-11-24 06:43] LABS: ALBUMIN 3.2 g/dL (3.4-5.0); ALBUMIN/GLOBULIN RATIO 0.9 (1.0-1.7); CALCIUM 8.5 mg/dL (8.5-10.1); CREATININE 0.8 mg/dL (0.7-1.3); GFR 108.8; POTASSIUM 4.4 mmol/L (3.5-5.1); TOTAL BILIRUBIN 0.4 mg/dL (0.2-1.0); TOTAL PROTEIN 6.8 g/dL (6.4-8.2)
[2018-11-24 06:48] LABS: BASO # 0.1 x10^3/uL (0.0-0.2); BASO % 1 % (0-3); EOS # 0.4 x10^3/uL (0.0-0.7); EOS % 6 % (0-3); HEMATOCRIT 37.9 % (39.0-53.0); HEMOGLOBIN 12.2 g/dL (13.0-17.5); LYMPH # 2.6 x10^3/uL (1.0-4.8); LYMPH % 40 % (24-48); MEAN CORPUSCULAR HEMOGLOBIN 29 pg (25-35); MEAN CORPUSCULAR HGB CONC 32 g/dL (31-37); MEAN CORPUSCULAR VOLUME 88 fL (79-100); MONO # 0.7 x10^3/uL (0.0-1.1); MONO % 11 % (0-9); NEUT # 2.8 x10^3uL (1.8-7.7); NEUT % 42 % (31-73); PLATELET COUNT 219 x10^3/uL (140-400); RED BLOOD COUNT 4.29 x10^6/uL (4.30-5.70); RED CELL DISTRIBUTION WIDTH 16.5 % (11.5-14.5); WHITE BLOOD COUNT 6.6 x10^3/uL (4.0-11.0)
[2018-11-24 07:00] VITALS: BP 104/73
[2018-11-24] MEDS: ASPIRIN CHEWABLE 81 MG TABLET. PO SCH (08:00)
[2018-11-24] MEDS: METOPROLOL TART IMMED RELEASE 50 MG TABLET. PO SCH ×2 (09:25→12:08)
--- NOTE | 2018-11-24 10:35 | PDOC ---
PROGRESS NOTES History of Present Illness History of Present Illness Images: Images Chest x-ray without acute changes Assessment/Plan Assessment/Plan Probable narcotic overdose that responded to Narcan MORBID OBESITY ddd l/s Lumbar fusion is seen from L3 through L5. Normal alignment between L3 and L4 and L5 is seen. Small midline laminectomy of L3 is seen. Large decompressive laminectomy of L4 is seen. There is mild retrolisthesis of L2 on L3. Minimal retrolisthesis of L5-S1 is seen. There is degenerative facet arthropathy at L2-3 and L3-4 and L4-5 and L5-S1. No anterolisthesis is seen. No compression fracture or discitis or lytic process is evident. The transverse processes are intact. Plan Consult Dr. Bryan Greenberg pain management rec referral to [facility] PAIN DEPT HOLD SEDATING home meds DVT prophylaxis Full code IV hydration When necessary Narcan Prognosis guarded/// drugs d/c planning 37 min Vitals Vitals Vital Signs Date Time Temp Pulse Resp B/P (MAP) Pulse Ox O2 Delivery O2 Flow Rate FiO2 11/24/18 08:00 Nasal Cannula 1.5 11/24/18 07:00 97.8 65 18 104/73 (83) 90 97.8 Physical Exam Physical Exam NECK: Supple, no JVD LUNGS: Clear to auscultation without rhonchi or wheezing HEART: RRR, S1, S2 present. Peripheral pulses intact ABDOMEN: Soft, nontender. Positive bowel sounds no organomegaly EXTREMITIES: Without any cyanosis, clubbing, or edema. Pedal pulses intact NEUROLOGIC: Normal speech, normal tone. A&O x 3 PSYCHIATRIC: Normal affect, normal mood. Stable SKIN: No ulcerations or rashes VASCULAR: Good capillary refill General: Cooperative, No acute distress Lungs: Crackles, Other Abdomen: Normal bowel sounds, Soft Labs LABS CT study of the lumbar spine without contrast Clinical indications: Fell last night. Abrasion mid thoracic area. Tender midlumbar area. TECHNIQUE: Noncontrast CT scanning of the lumbar spine was performed. Multiplanar 2-D reconstructions were generated. PQRS compliance Statement One or more of the following individualized dose reduction techniques were utilized for this study: 1. Automated exposure control 2. Adjustment of the mA and/or kV according to patient size 3. Use of iterative reconstruction technique FINDINGS: Lumbar fusion is seen from L3 through L5. Normal alignment between L3 and L4 and L5 is seen. Small midline laminectomy of L3 is seen. Large decompressive laminectomy of L4 is seen. There is mild retrolisthesis of L2 on L3. Minimal retrolisthesis of L5-S1 is seen. There is degenerative facet arthropathy at L2-3 and L3-4 and L4-5 and L5-S1. No anterolisthesis is seen. No compression fracture or discitis or lytic process is evident. The transverse processes are intact. IMPRESSION: No acute fracture. Electronically signed by: Jonathon Luevano MD (08/28/2018 12:33 PM) [facility] DICTATED and SIGNED BY: JONATHON LUEVANO MD DATE: 08/28/18 1224 HISTORY: Fall. TECHNIQUE: Computed tomographic images of the lumbar spine were obtained without contrast. Multiplanar reformatting was performed. *One or more of the following individualized dose reduction techniques were utilized for this examination: 1. Automated exposure control. 2. Adjustment of the mA and/or kV according to patient size. 3. Use of iterative reconstruction technique. COMPARISON: MRI dated 05/07/2018. FINDINGS: There are chronic mild compression deformities at T7 and T8. There are superimposed superior endplate Schmorl's nodes space levels. There are chronic mild superior endplate depressions with associated Schmorl's nodes at T5 and T6, and to a lesser extent, T4. There is degenerative endplate remodeling and Schmorl's node formation at additional thoracic levels. There is minimal thoracic scoliosis. There are hypoplastic T12 ribs. There is no severe thoracic foraminal or central canal stenosis. There is no suspicious lytic or sclerotic osseous lesion. There is diffuse posterior dependent nodular and groundglass opacity throughout the bilateral lower lobes. There is no significant pleural effusion. There is no pneumothorax. IMPRESSION: 1. No acute osseous finding or severe thoracic foraminal or central canal stenosis. 2. Chronic mild compression deformities and superior endplate depressions with superimposed Schmorl's nodes at the mid thoracic levels, stable compared to the prior MRI. 3. Mild multilevel degenerative change. 4. Diffuse posterior predominant groundglass and nodular opacities throughout the lower lobes. The imaging appearance favors infiltrate rather than atelectasis. Electronically signed by: Katelynn Petty MD (08/28/2018 12:05 PM) [place] [id number] DICTATED and SIGNED BY: KATELYNN PETTY MD Laboratory Tests Test 11/24/18 06:10 White Blood Count 6.6 x10^3/uL (4.0-11.0) Red Blood Count 4.29 x10^6/uL (4.30-5.70) Hemoglobin 12.2 g/dL (13.0-17.5) Hematocrit 37.9 % (39.0-53.0) Mean Corpuscular Volume 88 fL (79-100) Mean Corpuscular Hemoglobin 29 pg (25-35) Mean Corpuscular Hemoglobin Concent 32 g/dL (31-37) Red Cell Distribution Width 16.5 % (11.5-14.5) Platelet Count 219 x10^3/uL (140-400) Neutrophils (%) (Auto) 42 % (31-73) Lymphocytes (%) (Auto) 40 % (24-48) Monocytes (%) (Auto) 11 % (0-9) Eosinophils (%) (Auto) 6 % (0-3) Basophils (%) (Auto) 1 % (0-3) Neutrophils # (Auto) 2.8 x10^3uL (1.8-7.7) Lymphocytes # (Auto) 2.6 x10^3/uL (1.0-4.8) Monocytes # (Auto) 0.7 x10^3/uL (0.0-1.1) Eosinophils # (Auto) 0.4 x10^3/uL (0.0-0.7) Basophils # (Auto) 0.1 x10^3/uL (0.0-0.2) Sodium Level 140 mmol/L (136-145) Potassium Level 4.4 mmol/L (3.5-5.1) Chloride Level 104 mmol/L (98-107) Carbon Dioxide Level 30 mmol/L (21-32) Anion Gap 6 (6-14) Blood Urea Nitrogen 10 mg/dL (8-26) Creatinine 0.8 mg/dL (0.7-1.3) Estimated GFR (Cockcroft-Gault) 108.8 BUN/Creatinine Ratio 13 (6-20) Glucose Level 110 mg/dL (70-99) Calcium Level 8.5 mg/dL (8.5-10.1) Total Bilirubin 0.4 mg/dL (0.2-1.0) Aspartate Amino Transf (AST/SGOT) 41 U/L (15-37) Alanine Aminotransferase (ALT/SGPT) 493 U/L (16-63) Alkaline Phosphatase 75 U/L (46-116) Total Protein 6.8 g/dL (6.4-8.2) Albumin 3.2 g/dL (3.4-5.0) Albumin/Globulin Ratio 0.9 (1.0-1.7) Assessment and Plan Assessmemt and Plan Problems Medical Problems: (1) Elevated ALT measurement Status: Acute (2) Leukocytosis Status: Acute (3) Opiate overdose Status: Acute Comment Review of Relevant I have reviewed the following items amanda (where applicable) has been applied. Labs Laboratory Tests Test 11/22/18 20:30 11/23/18 05:05 11/24/18 06:10 White Blood Count 17.2 x10^3/uL (4.0-11.0) 7.9 x10^3/uL (4.0-11.0) 6.6 x10^3/uL (4.0-11.0) Red Blood Count 4.92 x10^6/uL (4.30-5.70) 4.60 x10^6/uL (4.30-5.70) 4.29 x10^6/uL (4.30-5.70) Hemoglobin 14.0 g/dL (13.0-17.5) 13.0 g/dL (13.0-17.5) 12.2 g/dL (13.0-17.5) Hematocrit 43.7 % (39.0-53.0) 40.8 % (39.0-53.0) 37.9 % (39.0-53.0) Mean Corpuscular Volume 89 fL (79-100) 89 fL (79-100) 88 fL (79-100) Mean Corpuscular Hemoglobin 28 pg (25-35) 28 pg (25-35) 29 pg (25-35) Mean Corpuscular Hemoglobin Concent 32 g/dL (31-37) 32 g/dL (31-37) 32 g/dL (31-37) Red Cell Distribution Width 17.1 % (11.5-14.5) 16.4 % (11.5-14.5) 16.5 % (11.5-14.5) Platelet Count 276 x10^3/uL (140-400) 241 x10^3/uL (140-400) 219 x10^3/uL (140-400) Neutrophils (%) (Auto) 90 % (31-73) 81 % (31-73) 42 % (31-73) Lymphocytes (%) (Auto) 4 % (24-48) 12 % (24-48) 40 % (24-48) Monocytes (%) (Auto) 6 % (0-9) 7 % (0-9) 11 % (0-9) Eosinophils (%) (Auto) 0 % (0-3) 0 % (0-3) 6 % (0-3) Basophils (%) (Auto) 0 % (0-3) 0 % (0-3) 1 % (0-3) Neutrophils # (Auto) 15.5 x10^3uL (1.8-7.7) 6.4 x10^3uL (1.8-7.7) 2.8 x10^3uL (1.8-7.7) Lymphocytes # (Auto) 0.7 x10^3/uL (1.0-4.8) 0.9 x10^3/uL (1.0-4.8) 2.6 x10^3/uL (1.0-4.8) Monocytes # (Auto) 1.0 x10^3/uL (0.0-1.1) 0.6 x10^3/uL (0.0-1.1) 0.7 x10^3/uL (0.0-1.1) Eosinophils # (Auto) 0.1 x10^3/uL (0.0-0.7) 0.0 x10^3/uL (0.0-0.7) 0.4 x10^3/uL (0.0-0.7) Basophils # (Auto) 0.0 x10^3/uL (0.0-0.2) 0.0 x10^3/uL (0.0-0.2) 0.1 x10^3/uL (0.0-0.2) Segmented Neutrophils % 72 % (35-66) Band Neutrophils % 16 % (0-9) Lymphocytes % 8 % (24-48) Monocytes % 4 % (0-10) Platelet Estimate Adequate (ADEQUATE) Urine Collection Type Unknown Urine Color Yellow Urine Clarity Clear Urine pH 5.5 Urine Specific [place] 1.015 Urine Protein Negative mg/dL (NEG-TRACE) Urine Glucose (UA) 100 mg/dL (NEG) Urine Ketones (Stick) Negative mg/dL (NEG) Urine Blood Negative (NEG) Urine Nitrite Negative (NEG) Urine Bilirubin Negative (NEG) Urine Urobilinogen Dipstick 1.0 mg/dL (0.2 mg/dL) Urine Leukocyte Esterase Negative (NEG) Urine RBC Rare /HPF (0-2) Urine WBC Rare /HPF (0-4) Urine Squamous Epithelial Cells Occ /LPF Urine Bacteria 0 /HPF (0-FEW) Urine Hyaline Casts Few /HPF Urine Mucus Mod /LPF Sodium Level 138 mmol/L (136-145) 143 mmol/L (136-145) 140 mmol/L (136-145) Potassium Level 4.4 mmol/L (3.5-5.1) 4.5 mmol/L (3.5-5.1) 4.4 mmol/L (3.5-5.1) Chloride Level 98 mmol/L (98-107) 105 mmol/L (98-107) 104 mmol/L (98-107) Carbon Dioxide Level 30 mmol/L (21-32) 29 mmol/L (21-32) 30 mmol/L (21-32) Anion Gap 10 (6-14) 9 (6-14) 6 (6-14) Blood Urea Nitrogen 16 mg/dL (8-26) 13 mg/dL (8-26) 10 mg/dL (8-26) Creatinine 1.3 mg/dL (0.7-1.3) 1.0 mg/dL (0.7-1.3) 0.8 mg/dL (0.7-1.3) Estimated GFR (Cockcroft-Gault) 62.1 84.1 108.8 Glucose Level 55 mg/dL (70-99) 113 mg/dL (70-99) 110 mg/dL (70-99) Calcium Level 9.1 mg/dL (8.5-10.1) 8.7 mg/dL (8.5-10.1) 8.5 mg/dL (8.5-10.1) Magnesium Level 2.0 mg/dL (1.8-2.4) Total Bilirubin 1.1 mg/dL (0.2-1.0) 0.7 mg/dL (0.2-1.0) 0.4 mg/dL (0.2-1.0) Direct Bilirubin 0.4 mg/dL (0.0-0.2) Aspartate Amino Transf (AST/SGOT) 102 U/L (15-37) 76 U/L (15-37) 41 U/L (15-37) Alanine Aminotransferase (ALT/SGPT) 1070 U/L (16-63) 772 U/L (16-63) 493 U/L (16-63) Alkaline Phosphatase 112 U/L (46-116) 97 U/L (46-116) 75 U/L (46-116) Creatine Kinase 146 U/L (39-308) Total Protein 8.7 g/dL (6.4-8.2) 7.8 g/dL (6.4-8.2) 6.8 g/dL (6.4-8.2) Albumin 4.2 g/dL (3.4-5.0) 3.7 g/dL (3.4-5.0) 3.2 g/dL (3.4-5.0) Salicylates Level < 2.8 mg/dL (2.8-20.0) Salicylate Last Dose Date Unk Salicylate Last Dose Time Unk Urine Opiates Screen Pos (NEG) Urine Methadone Screen Neg (NEG) Acetaminophen Level < 2 mcg/ml (10-30) Acetaminophen Last Dose Date Unk Acetaminophen Last Dose Time Unk Urine Barbiturates Neg (NEG) Urine Phencyclidine Screen Neg (NEG) Urine Amphetamine/Methamphetamine Neg (NEG) Urine Benzodiazepines Screen Pos (NEG) Urine Cocaine Screen Neg (NEG) Urine Cannabinoids Screen Neg (NEG) Ethyl Alcohol Level < 10 mg/dL (0-10) Urine Ethyl Alcohol Neg (NEG) BUN/Creatinine Ratio 13 (6-20) 13 (6-20) Albumin/Globulin Ratio 0.9 (1.0-1.7) 0.9 (1.0-1.7) Laboratory Tests Test 5/24/19 06:10 White Blood Count 6.6 x10^3/uL (4.0-11.0) Red Blood Count 4.29 x10^6/uL (4.30-5.70) Hemoglobin 12.2 g/dL (13.0-17.5) Hematocrit 37.9 % (39.0-53.0) Mean Corpuscular Volume 88 fL (79-100) Mean Corpuscular Hemoglobin 29 pg (25-35) Mean Corpuscular Hemoglobin Concent 32 g/dL (31-37) Red Cell Distribution Width 16.5 % (11.5-14.5) Platelet Count 219 x10^3/uL (140-400) Neutrophils (%) (Auto) 42 % (31-73) Lymphocytes (%) (Auto) 40 % (24-48) Monocytes (%) (Auto) 11 % (0-9) Eosinophils (%) (Auto) 6 % (0-3) Basophils (%) (Auto) 1 % (0-3) Neutrophils # (Auto) 2.8 x10^3uL (1.8-7.7) Lymphocytes # (Auto) 2.6 x10^3/uL (1.0-4.8) Monocytes # (Auto) 0.7 x10^3/uL (0.0-1.1) Eosinophils # (Auto) 0.4 x10^3/uL (0.0-0.7) Basophils # (Auto) 0.1 x10^3/uL (0.0-0.2) Sodium Level 140 mmol/L (136-145) Potassium Level 4.4 mmol/L (3.5-5.1) Chloride Level 104 mmol/L (98-107) Carbon Dioxide Level 30 mmol/L (21-32) Anion Gap 6 (6-14) Blood Urea Nitrogen 10 mg/dL (8-26) Creatinine 0.8 mg/dL (0.7-1.3) Estimated GFR (Cockcroft-Gault) 108.8 BUN/Creatinine Ratio 13 (6-20) Glucose Level 110 mg/dL (70-99) Calcium Level 8.5 mg/dL (8.5-10.1) Total Bilirubin 0.4 mg/dL (0.2-1.0) Aspartate Amino Transf (AST/SGOT) 41 U/L (15-37) Alanine Aminotransferase (ALT/SGPT) 493 U/L (16-63) Alkaline Phosphatase 75 U/L (46-116) Total Protein 6.8 g/dL (6.4-8.2) Albumin 3.2 g/dL (3.4-5.0) Albumin/Globulin Ratio 0.9 (1.0-1.7) Medications Current Medications Sodium Chloride 1,000 ml @ 1,000 mls/hr Q1H IV Last administered on 11/22/18at 18:21; Start 11/22/18 at 18:21; Stop 11/22/18 at 19:20; Status DC Ondansetron HCl (Zofran) 4 mg PRN Q8HRS PRN IV NAUSEA/VOMITING 1ST CHOICE; Start 11/22/18 at 21:45; Stop 11/23/18 at 21:44; Status DC Sodium Chloride 1,000 ml @ 150 mls/hr Q6H40M IV Last administered on 11/22/18at 22:00; Start 11/22/18 at 22:00; Stop 11/23/18 at 11:20; Status DC Hydromorphone HCl (Dilaudid) 0.5 mg 1X ONCE IV Last administered on 11/22/18at 22:47; Start 11/22/18 at 23:00; Stop 11/22/18 at 23:01; Status DC Hydromorphone HCl (Dilaudid) 4 mg PRN Q4HRS PRN PO SEVERE PAIN Last administered on 11/23/18at 12:19; Start 11/23/18 at 00:45; Stop 11/23/18 at 12:20; Status DC Alprazolam (Xanax) 2 mg PRN Q8HRS PRN PO ANXIETY / AGITATION Last administered on 11/23/18at 10:01; Start 11/23/18 at 00:45; Stop 11/23/18 at 10:01; Status DC Aspirin (Children'S Aspirin) 81 mg DAILY08 PO Last administered on 11/23/18at 15:13; Start 11/23/18 at 14:00 Metoprolol Tartrate (Lopressor) 75 mg BID PO ; Start 11/23/18 at 21:00; Stop 11/23/18 at 21:00; Status DC Alprazolam (Xanax) 2 mg PRN Q8HRS PRN PO ANXIETY / AGITATION Last administered on 11/24/18at 04:36; Start 11/23/18 at 13:30 Hydromorphone HCl (Dilaudid) 4 mg PRN Q4HRS PRN PO PAIN SEVERE Last administered on 11/24/18 09:24; Start 11/23/18 at 13:45 Metoprolol Tartrate (Lopressor) 75 mg BID PO Last administered on 11/23/18at 20:17; Start 11/23/18 at 14:00 Active Scripts Active Reported Metoprolol Tartrate 50 Mg Tablet 75 Mg PO BID Dilaudid (Hydromorphone Hcl) 4 Mg Tablet 4 Mg PO PRN Q4HRS PRN Alprazolam 2 Mg Tablet 2 Mg PO PRN TID PRN Aspirin 81 Mg Tab.chew 1 Tab PO DAILY Vitals/I & O Vital Sign - Last 24 Hours 11/23/18 11/23/18 11/23/18 11/23/18 12:00 12:19 15:00 15:13 Temp 98.7 97.5 98.7 97.5 Pulse 89 90 89 Resp 20 20 B/P (MAP) 170/104 (126) 118/85 (96) 170/104 Pulse Ox 94 95 O2 Delivery Room Air Nasal Cannula Nasal Cannula O2 Flow Rate 2.0 1.5 11/23/18 11/23/18 11/23/18 11/24/18 19:00 20:17 23:00 03:00 Temp 98.6 98.7 98.7 98.6 98.7 98.7 Pulse 77 77 78 78 Resp 18 18 18 B/P (MAP) 159/93 (115) 159/97 132/78 (96) 132/78 (96) Pulse Ox 93 94 94 O2 Delivery Room Air Nasal Cannula Nasal Cannula O2 Flow Rate 4.0 1.5 11/24/18 11/24/18 07:00 08:00 Temp 97.8 97.8 Pulse 65 Resp 18 B/P (MAP) 104/73 (83) Pulse Ox 90 O2 Delivery Room Air Nasal Cannula O2 Flow Rate 1.5 Intake and Output 11/23/18 11/23/18 11/24/18 15:00 23:00 07:00 Intake Total 500 ml 600 ml Output Total 950 ml Balance -950 ml 500 ml 600 ml RONAL GRIFFIN MD November 24, 2018 10:35
[2018-11-24 11:00] VITALS: BP 143/79
--- NOTE | 2018-11-24 12:45 | PDOC ---
Subjective: Subjective: No GI complaints. Doesn't remember having US. Doesn't remember seeing Dr. Greenberg. Thinks he should stay another day. Objective: Vital Signs: Vital Signs Date Time Temp Pulse Resp B/P (MAP) Pulse Ox O2 Delivery O2 Flow Rate FiO2 11/24/18 12:08 143/79 11/24/18 11:00 97.9 71 18 95 Room Air 97.9 11/24/18 08:00 1.5 Labs: Laboratory Tests Test 11/24/18 06:10 White Blood Count 6.6 x10^3/uL Red Blood Count 4.29 x10^6/uL Hemoglobin 12.2 g/dL Hematocrit 37.9 % Mean Corpuscular Volume 88 fL Mean Corpuscular Hemoglobin 29 pg Mean Corpuscular Hemoglobin Concent 32 g/dL Red Cell Distribution Width 16.5 % Platelet Count 219 x10^3/uL Neutrophils (%) (Auto) 42 % Lymphocytes (%) (Auto) 40 % Monocytes (%) (Auto) 11 % Eosinophils (%) (Auto) 6 % Basophils (%) (Auto) 1 % Neutrophils # (Auto) 2.8 x10^3uL Lymphocytes # (Auto) 2.6 x10^3/uL Monocytes # (Auto) 0.7 x10^3/uL Eosinophils # (Auto) 0.4 x10^3/uL Basophils # (Auto) 0.1 x10^3/uL Sodium Level 140 mmol/L Potassium Level 4.4 mmol/L Chloride Level 104 mmol/L Carbon Dioxide Level 30 mmol/L Anion Gap 6 Blood Urea Nitrogen 10 mg/dL Creatinine 0.8 mg/dL Estimated GFR (Cockcroft-Gault) 108.8 BUN/Creatinine Ratio 13 Glucose Level 110 mg/dL Calcium Level 8.5 mg/dL Total Bilirubin 0.4 mg/dL Aspartate Amino Transf (AST/SGOT) 41 U/L Alanine Aminotransferase (ALT/SGPT) 493 U/L Alkaline Phosphatase 75 U/L Total Protein 6.8 g/dL Albumin 3.2 g/dL Albumin/Globulin Ratio 0.9 Imaging: RUQ US IMPRESSION: 1. Limited study. 2. Previous cholecystectomy. 3. Normal common duct. 4. No definite focal liver lesion but incomplete evaluation. PE: GEN: NAD LUNGS: room air HEART: RRR ABD: obese NEURO/PSYCH: A & O 3, drowsy A/P: Chronic back pain, suspected overdose Elevated LFTs - better, suspect 2/2 above, US unhelpful -- DC per primary, follow-up w/ GI PRN as outpt. TORREY RIVERA November 24, 2018 12:45
[2018-11-24 15:00] VITALS: BP 138/69
--- NOTE | 2018-11-24 16:26 | PDOC3 ---
Discharge Summary Date of Admission: November 23, 2018 Date of Discharge: November 24, 2018 Follow-Up: 3-5 days Admitting Diagnosis comment: DISCHARGE DX Assessment/Plan Probable narcotic overdose that responded to Narcan MORBID OBESITY ddd l/s Lumbar fusion is seen from L3 through L5. Normal alignment between L3 and L4 and L5 is seen. Small midline laminectomy of L3 is seen. Large decompressive laminectomy of L4 is seen. There is mild retrolisthesis of L2 on L3. Minimal retrolisthesis of L5-S1 is seen. There is degenerative facet arthropathy at L2-3 and L3-4 and L4-5 and L5-S1. No anterolisthesis is seen. No compression fracture or discitis or lytic process is evident. The transverse processes are intact. Plan Consult Dr. Bryan Greenberg pain management rec referral to [facility] PAIN DEPT HOLD SEDATING home meds DVT prophylaxis Full code IV hydration When necessary Narcan Prognosis guarded/// drugs d/c planning 37 min Vitals Vitals Vital Signs Date Time Temp Pulse Resp B/P (MAP) Pulse Ox O2 Delivery O2 Flow Rate FiO2 11/24/18 08:00 Nasal Cannula 1.5 11/24/18 07:00 97.8 65 18 104/73 (83) 90 97.8 Physical Exam Physical Exam NECK: Supple, no JVD LUNGS: Clear to auscultation without rhonchi or wheezing HEART: RRR, S1, S2 present. Peripheral pulses intact ABDOMEN: Soft, nontender. Positive bowel sounds no organomegaly EXTREMITIES: Without any cyanosis, clubbing, or edema. Pedal pulses intact NEUROLOGIC: Normal speech, normal tone. A&O x 3 PSYCHIATRIC: Normal affect, normal mood. Stable SKIN: No ulcerations or rashes VASCULAR: Good capillary refill General: Cooperative, No acute distress Lungs: Crackles, Other Abdomen: Normal bowel sounds, Soft Labs LABS CT study of the lumbar spine without contrast Clinical indications: Fell last night. Abrasion mid thoracic area. Tender midlumbar area. TECHNIQUE: Noncontrast CT scanning of the lumbar spine was performed. Multiplanar 2-D reconstructions were generated. PQRS compliance Statement One or more of the following individualized dose reduction techniques were utilized for this study: 1. Automated exposure control 2. Adjustment of the mA and/or kV according to patient size 3. Use of iterative reconstruction technique FINDINGS: Lumbar fusion is seen from L3 through L5. Normal alignment between L3 and L4 and L5 is seen. Small midline laminectomy of L3 is seen. Large decompressive laminectomy of L4 is seen. There is mild retrolisthesis of L2 on L3. Minimal retrolisthesis of L5-S1 is seen. There is degenerative facet arthropathy at L2-3 and L3-4 and L4-5 and L5-S1. No anterolisthesis is seen. No compression fracture or discitis or lytic process is evident. The transverse processes are intact. IMPRESSION: No acute fracture. Electronically signed by: Tyler Luevano MD (08/28/2018 12:33 PM) [facility] FINAL DIAGNOSIS Problems Medical Problems: (1) Elevated ALT measurement Status: Acute (2) Leukocytosis Status: Acute (3) Opiate overdose Status: Acute Brief Hospital Course Mr. Kinney is a 38 old [sex] who presented with [LOW BACK PAIN ] CONDITION AT DISCHARGE: Improved Discharge Medications Current Medications Sodium Chloride 1,000 ml @ 1,000 mls/hr Q1H IV Last administered on 11/22/18at 18:21; Start 11/22/18 at 18:21; Stop 11/22/18 at 19:20; Status DC Ondansetron HCl (Zofran) 4 mg PRN Q8HRS PRN IV NAUSEA/VOMITING 1ST CHOICE; Start 11/22/18 at 21:45; Stop 11/23/18 at 21:44; Status DC Sodium Chloride 1,000 ml @ 150 mls/hr Q6H40M IV Last administered on 11/22/18at 22:00; Start 11/22/18 at 22:00; Stop 11/23/18 at 11:20; Status DC Hydromorphone HCl (Dilaudid) 0.5 mg 1X ONCE IV Last administered on 11/22/18at 22:47; Start 11/22/18 at 23:00; Stop 11/22/18 at 23:01; Status DC Hydromorphone HCl (Dilaudid) 4 mg PRN Q4HRS PRN PO SEVERE PAIN Last administered on 11/23/18at 12:19; Start 11/23/18 at 00:45; Stop 11/23/18 at 12:20; Status DC Alprazolam (Xanax) 2 mg PRN Q8HRS PRN PO ANXIETY / AGITATION Last administered on 11/23/18 10:01; Start 11/23/18 at 00:45; Stop 11/23/18 at 10:01; Status DC Aspirin (Children'S Aspirin) 81 mg DAILY08 PO Last administered on 11/23/18at 15:13; Start 11/23/18 at 14:00 Metoprolol Tartrate (Lopressor) 75 mg BID PO ; Start 11/23/18 at 21:00; Stop 11/23/18 at 21:00; Status DC Alprazolam (Xanax) 2 mg PRN Q8HRS PRN PO ANXIETY / AGITATION Last administered on 11/24/18at 15:38; Start 11/23/18 at 13:30 Hydromorphone HCl (Dilaudid) 4 mg PRN Q4HRS PRN PO PAIN SEVERE Last administered on 11/24/18at 13:48; Start 11/23/18 at 13:45 Metoprolol Tartrate (Lopressor) 75 mg BID PO Last administered on 11/24/18at 12:08; Start 11/23/18 at 14:00 Active Scripts Active Reported Metoprolol Tartrate 50 Mg Tablet 75 Mg PO BID Dilaudid (Hydromorphone Hcl) 4 Mg Tablet 4 Mg PO PRN Q4HRS PRN Alprazolam 2 Mg Tablet 2 Mg PO PRN TID PRN Aspirin 81 Mg Tab.chew 1 Tab PO DAILY Vital Signs Vital Signs Date Time Temp Pulse Resp B/P (MAP) Pulse Ox O2 Delivery O2 Flow Rate FiO2 11/24/18 15:00 98.5 71 18 138/69 (92) 94 Room Air 98.5 11/24/18 08:00 1.5 Labs Laboratory Tests Test 11/22/18 20:30 11/23/18 05:05 11/24/18 06:10 White Blood Count 17.2 x10^3/uL (4.0-11.0) 7.9 x10^3/uL (4.0-11.0) 6.6 x10^3/uL (4.0-11.0) Red Blood Count 4.92 x10^6/uL (4.30-5.70) 4.60 x10^6/uL (4.30-5.70) 4.29 x10^6/uL (4.30-5.70) Hemoglobin 14.0 g/dL (13.0-17.5) 13.0 g/dL (13.0-17.5) 12.2 g/dL (13.0-17.5) Hematocrit 43.7 % (39.0-53.0) 40.8 % (39.0-53.0) 37.9 % (39.0-53.0) Mean Corpuscular Volume 89 fL (79-100) 89 fL (79-100) 88 fL (79-100) Mean Corpuscular Hemoglobin 28 pg (25-35) 28 pg (25-35) 29 pg (25-35) Mean Corpuscular Hemoglobin Concent 32 g/dL (31-37) 32 g/dL (31-37) 32 g/dL (31-37) Red Cell Distribution Width 17.1 % (11.5-14.5) 16.4 % (11.5-14.5) 16.5 % (11.5-14.5) Platelet Count 276 x10^3/uL (140-400) 241 x10^3/uL (140-400) 219 x10^3/uL (140-400) Neutrophils (%) (Auto) 90 % (31-73) 81 % (31-73) 42 % (31-73) Lymphocytes (%) (Auto) 4 % (24-48) 12 % (24-48) 40 % (24-48) Monocytes (%) (Auto) 6 % (0-9) 7 % (0-9) 11 % (0-9) Eosinophils (%) (Auto) 0 % (0-3) 0 % (0-3) 6 % (0-3) Basophils (%) (Auto) 0 % (0-3) 0 % (0-3) 1 % (0-3) Neutrophils # (Auto) 15.5 x10^3uL (1.8-7.7) 6.4 x10^3uL (1.8-7.7) 2.8 x10^3uL (1.8-7.7) Lymphocytes # (Auto) 0.7 x10^3/uL (1.0-4.8) 0.9 x10^3/uL (1.0-4.8) 2.6 x10^3/uL (1.0-4.8) Monocytes # (Auto) 1.0 x10^3/uL (0.0-1.1) 0.6 x10^3/uL (0.0-1.1) 0.7 x10^3/uL (0.0-1.1) Eosinophils # (Auto) 0.1 x10^3/uL (0.0-0.7) 0.0 x10^3/uL (0.0-0.7) 0.4 x10^3/uL (0.0-0.7) Basophils # (Auto) 0.0 x10^3/uL (0.0-0.2) 0.0 x10^3/uL (0.0-0.2) 0.1 x10^3/uL (0.0-0.2) Segmented Neutrophils % 72 % (35-66) Band Neutrophils % 16 % (0-9) Lymphocytes % 8 % (24-48) Monocytes % 4 % (0-10) Platelet Estimate Adequate (ADEQUATE) Urine Collection Type Unknown Urine Color Yellow Urine Clarity Clear Urine pH 5.5 Urine Specific [place] 1.015 Urine Protein Negative mg/dL (NEG-TRACE) Urine Glucose (UA) 100 mg/dL (NEG) Urine Ketones (Stick) Negative mg/dL (NEG) Urine Blood Negative (NEG) Urine Nitrite Negative (NEG) Urine Bilirubin Negative (NEG) Urine Urobilinogen Dipstick 1.0 mg/dL (0.2 mg/dL) Urine Leukocyte Esterase Negative (NEG) Urine RBC Rare /HPF (0-2) Urine WBC Rare /HPF (0-4) Urine Squamous Epithelial Cells Occ /LPF Urine Bacteria 0 /HPF (0-FEW) Urine Hyaline Casts Few /HPF Urine Mucus Mod /LPF Sodium Level 138 mmol/L (136-145) 143 mmol/L (136-145) 140 mmol/L (136-145) Potassium Level 4.4 mmol/L (3.5-5.1) 4.5 mmol/L (3.5-5.1) 4.4 mmol/L (3.5-5.1) Chloride Level 98 mmol/L (98-107) 105 mmol/L (98-107) 104 mmol/L (98-107) Carbon Dioxide Level 30 mmol/L (21-32) 29 mmol/L (21-32) 30 mmol/L (21-32) Anion Gap 10 (6-14) 9 (6-14) 6 (6-14) Blood Urea Nitrogen 16 mg/dL (8-26) 13 mg/dL (8-26) 10 mg/dL (8-26) Creatinine 1.3 mg/dL (0.7-1.3) 1.0 mg/dL (0.7-1.3) 0.8 mg/dL (0.7-1.3) Estimated GFR (Cockcroft-Gault) 62.1 84.1 108.8 Glucose Level 55 mg/dL (70-99) 113 mg/dL (70-99) 110 mg/dL (70-99) Calcium Level 9.1 mg/dL (8.5-10.1) 8.7 mg/dL (8.5-10.1) 8.5 mg/dL (8.5-10.1) Magnesium Level 2.0 mg/dL (1.8-2.4) Total Bilirubin 1.1 mg/dL (0.2-1.0) 0.7 mg/dL (0.2-1.0) 0.4 mg/dL (0.2-1.0) Direct Bilirubin 0.4 mg/dL (0.0-0.2) Aspartate Amino Transf (AST/SGOT) 102 U/L (15-37) 76 U/L (15-37) 41 U/L (15-37) Alanine Aminotransferase (ALT/SGPT) 1070 U/L (16-63) 772 U/L (16-63) 493 U/L (16-63) Alkaline Phosphatase 112 U/L (46-116) 97 U/L (46-116) 75 U/L (46-116) Creatine Kinase 146 U/L (39-308) Total Protein 8.7 g/dL (6.4-8.2) 7.8 g/dL (6.4-8.2) 6.8 g/dL (6.4-8.2) Albumin 4.2 g/dL (3.4-5.0) 3.7 g/dL (3.4-5.0) 3.2 g/dL (3.4-5.0) Salicylates Level < 2.8 mg/dL (2.8-20.0) Salicylate Last Dose Date Unk Salicylate Last Dose Time Unk Urine Opiates Screen Pos (NEG) Urine Methadone Screen Neg (NEG) Acetaminophen Level < 2 mcg/ml (10-30) Acetaminophen Last Dose Date Unk Acetaminophen Last Dose Time Unk Urine Barbiturates Neg (NEG) Urine Phencyclidine Screen Neg (NEG) Urine Amphetamine/Methamphetamine Neg (NEG) Urine Benzodiazepines Screen Pos (NEG) Urine Cocaine Screen Neg (NEG) Urine Cannabinoids Screen Neg (NEG) Ethyl Alcohol Level < 10 mg/dL (0-10) Urine Ethyl Alcohol Neg (NEG) BUN/Creatinine Ratio 13 (6-20) 13 (6-20) Albumin/Globulin Ratio 0.9 (1.0-1.7) 0.9 (1.0-1.7) Laboratory Tests Test 11/24/18 06:10 White Blood Count 6.6 x10^3/uL (4.0-11.0) Red Blood Count 4.29 x10^6/uL (4.30-5.70) Hemoglobin 12.2 g/dL (13.0-17.5) Hematocrit 37.9 % (39.0-53.0) Mean Corpuscular Volume 88 fL (79-100) Mean Corpuscular Hemoglobin 29 pg (25-35) Mean Corpuscular Hemoglobin Concent 32 g/dL (31-37) Red Cell Distribution Width 16.5 % (11.5-14.5) Platelet Count 219 x10^3/uL (140-400) Neutrophils (%) (Auto) 42 % (31-73) Lymphocytes (%) (Auto) 40 % (24-48) Monocytes (%) (Auto) 11 % (0-9) Eosinophils (%) (Auto) 6 % (0-3) Basophils (%) (Auto) 1 % (0-3) Neutrophils # (Auto) 2.8 x10^3uL (1.8-7.7) Lymphocytes # (Auto) 2.6 x10^3/uL (1.0-4.8) Monocytes # (Auto) 0.7 x10^3/uL (0.0-1.1) Eosinophils # (Auto) 0.4 x10^3/uL (0.0-0.7) Basophils # (Auto) 0.1 x10^3/uL (0.0-0.2) Sodium Level 140 mmol/L (136-145) Potassium Level 4.4 mmol/L (3.5-5.1) Chloride Level 104 mmol/L (98-107) Carbon Dioxide Level 30 mmol/L (21-32) Anion Gap 6 (6-14) Blood Urea Nitrogen 10 mg/dL (8-26) Creatinine 0.8 mg/dL (0.7-1.3) Estimated GFR (Cockcroft-Gault) 108.8 BUN/Creatinine Ratio 13 (6-20) Glucose Level 110 mg/dL (70-99) Calcium Level 8.5 mg/dL (8.5-10.1) Total Bilirubin 0.4 mg/dL (0.2-1.0) Aspartate Amino Transf (AST/SGOT) 41 U/L (15-37) Alanine Aminotransferase (ALT/SGPT) 493 U/L (16-63) Alkaline Phosphatase 75 U/L (46-116) Total Protein 6.8 g/dL (6.4-8.2) Albumin 3.2 g/dL (3.4-5.0) Albumin/Globulin Ratio 0.9 (1.0-1.7) Allergies Allergies Coded Allergies Type Severity Reaction Last Updated Verified Penicillins Allergy Intermediate Hives 11/13/18 Yes ketorolac Allergy Intermediate 11/13/18 Yes tramadol Allergy Intermediate 11/13/18 Yes Disposition/Orders: D/C to Home Patient Instructions D/C PLANNIMNG 37 MIN RONAL GRIFFIN MD November 24, 2018 16:26
--- NOTE | 2018-11-24 16:27 | DISCH ---
DISCHARGE INSTRUCTIONS Condition on Discharge Condition on Discharge: Stable Activity After Discharge Activity Instructions for Disc: Resume previous activity, Activity as tolerated Bathing Instructions: Shower-keep dressing dry Lifting Instructions after Dis: No heavy lifting Exercise Instruction after Dis: Progress as tolerated Driving Instructions after Dis: Do not drive Weight Bearing Status after Di: As tolerated Diet after Discharge Diet after Discharge: Cardiac, Regular Diet Texture: Regular Liquid Texture: Thin Liquid Swallowing Supervision: None needed Wound Incision Care Wound/Incision Care: Ice to area for comfort, Change dressing Checks after Discharge Checks after discharge: Check your Temp as needed Contacting the DR. after DC Call your doctor for: Concerns you may have Treatment/Equipment after DC Adaptive Equipment Issued: None RONAL GRIFFIN MD November 24, 2018 16:27
--- NOTE | 2018-11-24 17:35 | NUR ---
pt discharged home via private vehicle. stable upon dc. right neck EJ removed, cath intact. meds and follow up reviewed.
== END 2018-11-24 17:37 | disposition home or self-care (01) | DRG 918 ==
LOC: ER 18:11 → 1 WEST ICU 21:45 → 5 NORTH 11-23 11:58
PROVIDERS: ADMIT Internal Medicine; ATTEND Internal Medicine
DX: T40.601A Poisoning by unspecified narcotics, accidental (unintentional), initial encounter (principal); J98.11 Atelectasis; Z68.41 Body mass index [BMI] 40.0-44.9, adult; T42.4X1A Poisoning by benzodiazepines, accidental (unintentional), initial encounter; D17.9 Benign lipomatous neoplasm, unspecified; E66.01 Morbid (severe) obesity due to excess calories; F41.9 Anxiety disorder, unspecified; G47.33 Obstructive sleep apnea (adult) (pediatric); G89.29 Other chronic pain; I10 Essential (primary) hypertension; I48.91 Unspecified atrial fibrillation; Y95 Nosocomial condition; K57.90 Diverticulosis of intestine, part unspecified, without perforation or abscess without bleeding; M46.96 Unspecified inflammatory spondylopathy, lumbar region; M51.36 Other intervertebral disc degeneration, lumbar region; M54.30 Sciatica, unspecified side; Z82.49 Family history of ischemic heart disease and other diseases of the circulatory system; Z90.49 Acquired absence of other specified parts of digestive tract; Z87.442 Personal history of urinary calculi; Y92.89 Other specified places as the place of occurrence of the external cause; Z88.0 Allergy status to penicillin; Z88.8 Allergy status to other drugs, medicaments and biological substances
CPT/HCPCS: 36415; 71045; 76705; 80048; 80053; 80076; 80307; 80329; 81001; 82550; 83735; 85007; 85025; 93005; G0480; J1170; J7030

== ENCOUNTER 2018-12-25 07:42 | Emergency (ER) | payer OTHER ==
--- NOTE | 2018-12-25 07:57 | PHYS DOC ---
Past Medical History Past Medical History: Anxiety, Kidney Stone Additional Past Medical Histor: chronic back pain due to herniated disc, irreg heart beat Past Surgical History: Appendectomy, Cholecystectomy, Tonsillectomy, Other Additional Past Surgical Histo: MULTIPLE BACK SURGERIES, LAP BAND SX, HIATAL HERNIA Alcohol Use: Occasionally Drug Use: Benzodiazepine, Opiates Adult General HPI HPI Patient is a 38-year-old male well known to our emergency department secondary to multiple visits requiring aggressive resuscitation. Patient presents via EMS with CPR in progress. Patient was last seen at midnight and did not get up to take his 1 AM medications. Patient was found a little over an hour prior to arrival here. Apparently, family attempted to start CPR. When EMS arrived patient was cool to touch and in asystole. They gave Narcan with no results. An airway was placed.[] Review of Systems Review of Systems Unable to assess secondary to patient being in cardiac arrest Allergies Allergies Allergies Coded Allergies Type Severity Reaction Last Updated Verified Penicillins Allergy Intermediate Hives 11/13/18 Yes ketorolac Allergy Intermediate 11/13/18 Yes tramadol Allergy Intermediate 11/13/18 Yes Physical Exam Physical Exam Constitutional: Cool to touch, mottled cardiac arrest with CPR in progress. [] HENT: Airway in place[] Eyes: Pupils are fixed and dilated. [] . [] Cardiovascular: Good femoral pulses with compressions otherwise pulseless[] Lungs & Thorax: Clear lungs with assisted ventilation[] Abdomen: Soft. [] Skin: Cool to touch mottled. [] [] Extremities: Unsuccessful IO attempt left tibia[] Neurologic: Unresponsive. [] EKG EKG [] Radiology/Procedures Radiology/Procedures [] Course & Med Decision Making Course & Med Decision Making Pertinent Labs and Imaging studies reviewed. (See chart for details) [ED course: Evaluation reveals a 38-year-old male in cardiac arrest that was cool to touch mottled pulseless apneic and in asystole. ACLS protocol including chest compressions had been ongoing for approximately 1 hour with no improvement. Please see the code sheet for specifics but the code was called and the patient was pronounced at 0747] Dragon Disclaimer Dragon Disclaimer This electronic medical record was generated, in whole or in part, using a voice recognition dictation system. Departure Departure Impression: Primary Impression: Cardiac arrest Disposition: 20 Condition: GRAVE Referrals: LEXA WRIGHT MD (PCP) SHARIF LI DO Dec 25, 2018 07:57
[2018-12-25] MEDS ORDERED: EPINEPHrine SYRINGE 1 MG/10 ML SYRINGE ONE (12:00)
[2018-12-25] MEDS ORDERED: 0.9 % SODIUM CHLORIDE 10 ML DISP.SYRIN. ONE (12:00)
== END 2018-12-25 11:19 | disposition expired ==
LOC: ER 07:42
DX: I46.9 Cardiac arrest, cause unspecified (principal); G89.29 Other chronic pain; F41.9 Anxiety disorder, unspecified; Z88.0 Allergy status to penicillin; Z88.6 Allergy status to analgesic agent
CPT/HCPCS: 92950; 99285; J0171